=== PATIENT | female | born 1940 | race Caucasian/White ===

== ENCOUNTER 2021-03-22 12:08 | Inpatient (IN) | payer MEDICARE ==
[~2021-03-22] VITALS: Ht 165 cm; Wt 88.9 kg
[2021-03-22] MEDS ORDERED: morphine INJ 10 MG/ML 1ML (SYR OR VIAL) IVP PRN (12:45)
[2021-03-22] MEDS ORDERED: dilTIAZem DRIP PRE-MIX 125 ML IV ONE (15:23)
[2021-03-22] MEDS: PANTOPRAZOLE 40 MG (PROTONIX) VIAL IV SCH (15:45)
[2021-03-22] MEDS: NS IV 1000 ML 1,000 ML IV SCH ×2 (15:45→22:45)
[2021-03-22] MEDS: dilTIAZem DRIP PRE-MIX 125 ML IV SCH (15:45)
[2021-03-22] MEDS ORDERED: AMLO-250 PO (15:48)
[2021-03-22] MEDS ORDERED: LEVO100T7 PO (15:48)
[2021-03-22] MEDS ORDERED: ALEN70TA80 PO (15:48)
--- NOTE | 2021-03-22 16:07 | Pulmonary Consultation ---
DELMIS FERNANDEZ MED STUDENT 03/22/21 1607: History of Present Illness History of Present Illness Date Seen by Provider: Mar 22, 2021 Time Seen by Provider: 02:55 Date of Admission Alistair Hein is a 80 y.o. F with history of hypertension and hypothyroidism admitted to the ICU after she was found to be in atrial fibrillation with RVR while at a routine checkup today. The patient was seen in [facility] and was found to be anemic as well with hgb in the 6's. She was transfused 1 unit PRBC en route. The patient denies all symptoms including headache, lightheadedness, recent trauma, chest pain, palpitations, SOB, nausea, diarrhea, abdominal pain, black stools, and bloody stools. 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 No recent change in severity of exertional dyspnea. Her last colonoscopy was 30 years ago. Allergies and Home Medications Allergies Coded Allergies: No Allergy Information Available (Unverified , 03/22/21) Home Medications Alendronate Sodium 70 Mg Tablet, 70 MG PO SATURDAY, (Reported) Amlodipine Besylate 5 Mg Tablet, 5 MG PO DAILY, (Reported) Levothyroxine Sodium 100 Mcg Tablet, 100 MCG PO DAILY, (Reported) Past Medical/Social/Family Hx Patient Social History Marrital Status: single (lives alone) Tobacco Use?: No Smoking Status: Never a Smoker Substance use?: No Alcohol Use?: No (quit "years ago") Pt stated abuse/neglect: No Immunizations Up To Date Influenza Vaccine Up-to-Date: No; Not Current First/Initial COVID19 Vaccinat: AUGUST 2020 Second COVID19 Vaccination Sanya: SEPTEMBER 2020 Current Status Advance Directives: No Communicates: Verbally Primary Language: North Korean Preferred Spoken Language: [place] Korean Is interpretation needed?: No Past Medical History HTN, hypothyroidism Family Medical History Family Hx: father had symptomatic bradycardia, mother had a "heart problem" in her 50's. Review of Systems Constitutional: No: Fever, Chills, Sweats, Weakness, Malaise, Other Eyes: No: Vision change ENT: No: Nose congestion, Throat pain Respiratory: SOB with excertion (3 year hx. unchanged past year); No: Shortness of breath Cardiovascular: No: Chest Pain, Palpitations Gastrointestinal: No: Nausea, Vomiting, Abdominal Pain, Diarrhea, Constipation, Melena Genitourinary: No Dysuria Skin: No: Rash, Bruising Neurological: No: Weakness, Numbness, Change in speech Sepsis Event Evaluation Height, Weight, BMI Height: '" Weight: lbs. oz. kg; 32.32 BMI Method: Exam Exam Patient acknowledged, consented, and participated in this virtual visit which was conducted using real time audio/video Height & Weight Height: '" Weight: lbs. oz. kg; 32.32 BMI Method: General Appearance: No Apparent Distress, WD/WN, Obese HEENT: PERRL/EOMI, Moist Mucous Membranes Neck: Full Range of Motion, Normal Inspection Respiratory: Chest Non Tender, Lungs Clear, Normal Breath Sounds, No Accessory Muscle Use, No Respiratory Distress Cardiovascular: No JVD, Normal Peripheral Pulses, Irregularly Irregular, Tachycardia Gastrointestinal: non tender, soft Extremity: Normal Capillary Refill, Normal Inspection, No Calf Tenderness Neurologic/Psychiatric: Alert, Oriented x3, No Motor/Sensory Deficits, Normal Mood/Affect Skin: Normal Color, Warm/Dry Results Lab Laboratory Tests 03/22/21 14:00 Assessment/Plan Assessment/Plan atrial fibrillaton with RVR -rate 115's-120's -BP normotensive 125/97. Patient asymptomatic -cardiology to manage. anemia -received PRBC transfusion -recheck HGB -admitting hospitalist has consulted surgery. No acute hx. Last colonoscopy 30 years prior. history of hypertension hypothyroidism -continue synthroid DVT prophylaxis -hold anticoagulation due to anemia. place SCDs. OSIRIS GODFREY MD 03/22/21 1706: Allergies and Home Medications Allergies Coded Allergies: No Allergy Information Available (Unverified , 03/22/21) Home Medications Alendronate Sodium 70 Mg Tablet, 70 MG PO SATURDAY, (Reported) Amlodipine Besylate 5 Mg Tablet, 5 MG PO DAILY, (Reported) Levothyroxine Sodium 100 Mcg Tablet, 100 MCG PO DAILY, (Reported) Review of Systems Date Seen by Provider: Mar 22, 2021 Time Seen by Provider: 17:05 Exam Exam General Appearance: No Apparent Distress Respiratory: Lungs Clear Cardiovascular: Irregularly Irregular Gastrointestinal: normal bowel sounds, non tender Extremity: Pedal Edema (trace leg edema) Assessment/Plan Assessment/Plan BP ok, patient awake, got 2nd unit of PRBC, will check Hb at 7 pm, continue Cardizem @ 5, V rate about 90 Critical Care: Critically Ill Patient Time spent with patient (mins): 20 Supervisory-Addendum Brief Verification & Attestation Participated in pt care: history Personally performed: exam, history Care discussed with: DIVISION SERGEANT Procedures: n/a Results interpretation: Verified [place] [address] Progress Note - Med Stdnt PULM Patient Name: Sudha Gilliland I Unit Number: [id number] Date of : 07/30/1983 Patient Status: Admitted Inpatient Attending Doctor: Nigel Escoto MD YAZMIN VALADEZ MED STUDENT 03/22/21 0849: Subjective Subjective Date Seen by a Provider: Mar 22, 2021 Time Seen by a Provider: 07:05 Subjective/Events-last exam Patient reports nausea and pain all over. She received a dose of benadryl overnight. Vitals are stable per bedside monitor. On RA. Voice is still quiet/raspy, no stridor. She is able to speak in full sentences. Review of Systems General: No Chills, No Night Sweats HEENT: No Head Aches, No Visual Changes Pulmonary: No Dyspnea; Cough Cardiovascular: No: Chest Pain, Palpitations, Orthopnea, Edema Gastrointestinal: Nausea; No: Vomiting, Diarrhea, Constipation Genitourinary: No Dysuria, No Frequency, No Incontinence Musculoskeletal: neck pain, back pain, leg pain, foot pain Neurological: No: Weakness, Numbness, Confusion Sepsis Event - Inpatient/Obs Sepsis Event Evaluation Height, Weight, BMI Height: 5'5.00" Weight: 209lbs. 0.0oz. 94.878589nz; 36.73 BMI Method:Stated Focused Exam Focused Exam Lactate Level 03/21/21 04:17: Lactic Acid Level 6.15*H 03/21/21 07:24: Lactic Acid Level 1.81 03/22/21 04:27: Lactic Acid Level 1.24 Time of Focused Exam: 06:30 Exam-Pulmonary/CC Exam Exam Patient acknowledged, consented, and participated in this virtual visit which was conducted using real time audio/video Vital Signs Date Time Temp Pulse Resp B/P (MAP) Pulse Ox O2 Delivery O2 Flow Rate FiO2 03/22/21 06:00 80 99 Room Air 03/22/21 05:00 92 94 Room Air 03/22/21 04:39 36.4 Room Air 03/22/21 04:25 84 132/92 100 Room Air 03/22/21 04:03 Room Air 03/22/21 04:00 101 21 98 Room Air 03/22/21 03:00 87 10 97 Room Air 03/22/21 02:40 36.2 Room Air 03/22/21 02:00 89 15 95 Room Air 03/22/21 01:00 94 16 115/83 96 Room Air 03/22/21 01:00 94 03/22/21 00:15 36.9 03/22/21 00:13 Room Air 03/22/21 00:00 99 18 144/116 99 Room Air 03/21/21 23:00 90 130/97 96 Room Air 03/21/21 22:00 98 9 142/103 90 Room Air 03/21/21 21:13 116 16 145/116 100 Room Air 03/21/21 20:27 Room Air 03/21/21 20:05 105 29 123/61 99 Room Air 03/21/21 19:00 37.1 Room Air 03/21/21 19:00 103 98 Room Air 03/21/21 19:00 103 03/21/21 18:00 110 21 98 Room Air 03/21/21 17:03 37.2 03/21/21 16:00 Room Air 03/21/21 15:00 112 39 140/95 97 Room Air 03/21/21 14:00 112 22 94 Room Air 03/21/21 13:00 126 03/21/21 13:00 129 21 95 Room Air 03/21/21 12:00 Room Air 03/21/21 12:00 114 9 128/86 95 Room Air 03/21/21 11:00 133 21 117/76 98 Room Air 03/21/21 10:00 123 21 117/76 98 Room Air 03/21/21 09:00 122 21 122/105 100 Room Air 03/21/21 08:58 130 I & O 03/22/21 06:59 Intake Total 4495 ml Balance 4495 ml Height & Weight Height: 5'5.00" Weight: 209lbs. 0.0oz. 94.653133it; 36.73 BMI Method:Stated General Appearance: No Apparent Distress, WD/WN, Obese HEENT: PERRL/EOMI, Moist Mucous Membranes, Other (No pharyngeal exudates, minimal swelling of uvula. Tongue with thick yellow film. Poor oral hygiene. ) Neck: Supple, Other (No LAD. Tender to palpation throughout. RIJ CVC in place.) Respiratory: Chest Non Tender, Lungs Clear, Normal Breath Sounds, No Accessory Muscle Use, No Respiratory Distress Cardiovascular: Regular Rate, Rhythm (with a rate of 103 this morning), No Jose ma, Normal Peripheral Pulses Capillary Refill: Less Than 3 Seconds Peripheral Pulses: 2+ Dorsalis Pedis (R), 2+ Left Dors-Pedis (L), 2+ Radial Pulses (R), 2+ Radial Pulses (L) Gastrointestinal: normal bowel sounds, non tender, soft; No distended, No guarding, No rebound; tenderness (tender to palpation x 4 quadrants. ) Extremity: Normal Capillary Refill, No Calf Tenderness, No Pedal Edema Neurologic/Psychiatric: Alert, Oriented x3 Skin: Normal Color, Warm/Dry Lymphatic: No Adenopathy Results Lab Laboratory Tests 03/21/21 04:17 03/21/21 14:30 03/22/21 04:27 Assessment/Plan Assessment/Plan Assessment/Plan Severe sepsis -rocephin -unasyn -wbc down to 14.6 today -procal 0.08 today -s/p fluid resuscitation -not on pressors Pharyngitiswith soft tissue pharyngeal swelling by CT -strep, covid, mono negative -culture pending -unasyn started today -ENT consulted today -benadryl for hoarseness -tylenol and fentanyl for pain -s/p 3 doses decadron Urine drug screen positive for ETOH -level 36 -CIWA protocol, monitor for withdrawal Elevated LFT's -trending down -continue to monitor -hepatic steatosis per CT abd/pelvis Anemia -hgb 10.5, likely dilutional -continue to follow Seizure disorder -keppra Closed head injury -continue to monitor neuro status Elevated LFTs -continue to monitor H/O pancreatitis -lipase 15 on - H/O diverticulosis DVT ppx -lovenox GI ppx -protonix Gonorrhea and chlamydia pending. Hepatitis and HIV assays non reactive. Syphilis antibody reactive. RPR non reactive. RIJ CVC: 03/21 Lees: None Problem List Diagnosis/Problems Copy To: Copy Verification and Attestation Supervisory-Addendum Brief OSIRIS GODFREY MD 03/22/21 1657: Subjective Subjective Sepsis Event - Inpatient/Obs Sepsis Event Focused Exam Focused Exam Exam-Pulmonary/CC Exam Assessment/Plan Assessment/Plan Assessment/Plan not drooling, appears to be improving, will continue abx Critical Care: Critically Ill Patient Problem List Diagnosis/Problems Copy To: Copy Verification and Attestation Supervisory-Addendum Brief Verification & Attestation Participated in pt care: history Personally performed: history Care discussed with: Medical Student Procedures: n/a Results interpretation: Verified all documentation [address] [address] Critical Care Consultation/H&P Patient Name: Coty Lizama Unit Number: [id number] Date of : 1940 Patient Status: Admitted Inpatient Attending Doctor: Arianna Tubbs MD History of Present Illness History of Present Illness History of Present Illness Date Seen by Provider: Mar 22, 2021 Time Seen by Provider: 16:47 Date of Admission 80 F with palpatations was in a fib with V rate 160, given 20 mg IV Cardizem, brought rate to 80's,on maintenance rate of 10 pt awake with no SOB, CP Hx of CABG about 1999, multiple stents no DM, Has HLD, PVD, CAD AAA repair ALFREDO not on CPAP at home Allergies & Home Medications-C Allergies and Home Medications Allergies Coded Allergies: NKANo Known Allergies (Verified Allergy, Unknown, 10/22/06) Home Medications Amlodipine Besylate 5 Mg Tablet, 5 MG PO 1400, (Reported) LAST FILLED 09-15-2020 #90/90 DAY SUPPLY Apixaban 5 Mg Tablet, 5 MG PO BID, (Reported) Aspirin 81 Mg Tablet.dr, 81 MG PO DAILY, (Reported) Atorvastatin Calcium 20 Mg Tablet, 20 MG PO 1400, (Reported) Cholecalciferol (Vitamin D3) 25 Mcg Capsule, 25 MCG PO DAILY, (Reported) Lisinopril 20 Mg Tablet, 20 MG PO 1400, (Reported) Metoprolol Succinate 50 Mg Tab.er.24h, 50 MG PO 1400, (Reported) Minoxidil 10 Mg Tab, 10 MG PO BID, (Reported) [place]-3S/Dha/Epa/Fish Oil 1 Each Capsule, 1 EACH PO 1400, (Reported) Past Medical/Social/Family Hx Past Medical/Social/Family Hx Patient Social History Tobacco Use?: No Smoking Status: Former Smoker Smokeless Tobacco Frequency: Never a User Use of E-Cig and/or Vaping dev: No Substance use?: No Alcohol Use?: No Pt stated abuse/neglect: No Immunizations Up To Date Influenza Vaccine Up-to-Date: No; Not Current First/Initial COVID19 Vaccinat: UNVACCINATED Tetanus Booster (TDap): Unknown Hepatitis A: No Hepatitis B: No TB Skin Test: Negative Date of Pneumonia Vaccine: Jul 25, 2006 Current Status status: No status: No Advance Directives: No Communicates: Verbally Primary Language: [place] Preferred Spoken Language: [place] Is interpretation needed?: No Additional sensory deficits: N/A Implanted or Applied Medical D: Orthopedic hardware, Stents Review of Systems-Hospitalist Review of Systems Constitutional: see HPI EENTM: see HPI Respiratory: see HPI Cardiovascular: see HPI Gastrointestinal: see HPI Genitourinary: see HPI Musculoskeletal: see HPI Skin: see HPI Psychiatric/Neurological: See HPI Sepsis Event - Inpatient/Obs Sepsis Event Evaluation Height, Weight, BMI Height: 5'0.00" Weight: 140lbs. 0.0oz. 63.355329vz; 25.35 BMI Method:Stated Exam-Pulmonary/CC Exam Exam Patient acknowledged, consented, and participated in this virtual visit which was conducted using real time audio/video Vital Signs Date Time Temp Pulse Resp B/P (MAP) Pulse Ox O2 Delivery O2 Flow Rate FiO2 03/22/21 15:42 98 Room Air 03/22/21 15:30 104 12 110/89 96 Room Air 03/22/21 15:15 123 31 146/105 95 Room Air 03/22/21 15:10 147 03/22/21 15:00 36.6 139/118 Room Air 03/22/21 14:45 119 18 149/106 97 Room Air 03/22/21 12:17 168 20 161/113 (129) 95 Room Air Height & Weight Height: 5'0.00" Weight: 140lbs. 0.0oz. 63.937360yy; 25.35 BMI Method:Stated General Appearance: No Apparent Distress, WD/WN, Other (WALKS IN ON HER OWN WITHOUT DIFFICULTY; SMILING, PLEASANT, TALKATIVE. 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 Physical findings are those described to me by RN and medical student Time spent with patient (mins): 25 Problem List Diagnosis/Problems Copy To: Copy OSIRIS GODFREY MD Mar 22, 2021 16:52 YAZMIN VALADEZ MED STUDENT Mar 22, 2021 08:49 OSIRIS GODFREY MD Mar 22, 2021 16:57 DELMIS FERNANDEZ MED STUDENT Mar 22, 2021 16:07 OSIRIS GODFREY MD Mar 22, 2021 17:06
--- NOTE | 2021-03-22 16:35 | Consultation - Surgery ---
SABI FREITAS 03/22/21 1634: History of Present Illness History of Present Illness Patient Consulted On(shyanne/time) 03/22/21 16:32 Date Seen by Provider: Mar 22, 2021 Time Seen by Provider: 04:00 History of Present Illness Consulted by Dr. Pierre for acute blood loss and possible GI bleed. 80yo F with history of HTN and hypothyroid admitted to ICU after afib with RVR at a routine check up. Pt was then transferred to [place] ER where they found her to be anemic with Hgb at 6.5. Was transfused 1 unit PRBCs via EMS on route to [facility] and one unit here. Denies any recent falls. Denies any fever, chills, nausea, vomiting, diarrhea, SOB, or chest pain. Denies any blood in stools or hemoptyosis. On clear liquid diet. Last colonoscopy 30 years ago. Allergies and Home Medications Allergies Coded Allergies: No Allergy Information Available (Unverified , 03/22/21) Patient Home Medication List Alendronate Sodium (Alendronate Sodium) 70 Mg Tablet, 70 MG PO SATURDAY, (Reported) Entered as Reported by: NADIRA SALMERON on 03/22/211547 Last Action: Reviewed Amlodipine Besylate (Amlodipine Besylate) 5 Mg Tablet, 5 MG PO DAILY, (Reported) Entered as Reported by: NADIRA SALMERON on 03/22/211547 Last Action: Reviewed Levothyroxine Sodium (Levothyroxine Sodium) 100 Mcg Tablet, 100 MCG PO DAILY, (Reported) Entered as Reported by: NADIRA SALMERON on 03/22/211547 Last Action: Reviewed Past Rueoibb-Bgvovs-Lstqkb Hx Patient Social History Smoking Status: Never a Smoker Alcohol Use?: No (quit "years ago") Have you traveled recently?: No Review of Systems-General Constitutional: No chills, No fever, No malaise EENTM: No blurred vision, No throat pain Respiratory: No cough, No hemoptysis, No short of breath, No wheezing Cardiovascular: No chest pain, No edema, No palpitations Gastrointestinal: No abdominal pain, No diarrhea, No nausea, No vomiting Genitourinary: No dysuria, No frequency, No incontinence Musculoskeletal: No back pain, No muscle pain, No neck pain Skin: No change in color, No lesions, No rash Psychiatric/Neurological: Denies Headache, Denies Numbness, Denies Tingling Physical Exam-General Problems Physical Exam Vital Signs Vital Signs - First Documented 03/22/21 16:11 Temp 36.6 Capillary Refill : General Appearance: WD/WN, no apparent distress HEENT: PERRL/EOMI Neck: non-tender, supple, normal inspection Respiratory: chest non-tender, no respiratory distress, no accessory muscle use Cardiovascular: tachycardia Gastrointestinal: non tender, soft Extremities: non-tender, no pedal edema, no calf tenderness, normal capillary refill Neurologic/Psychiatric: alert, normal mood/affect, oriented x 3 Skin: warm/dry Data Review Labs Laboratory Tests 03/22/21 14:00: White Blood Count 12.7H, Red Blood Count 3.67L, Hemoglobin 6.9*L, Hematocrit 27L , Mean Corpuscular Volume 73L, Mean Corpuscular Hemoglobin 19L, Mean Corpuscular Hemoglobin Concent 26L, Red Cell Distribution Width 18.9H, Platelet Count 469H, Mean Platelet Volume 11.0, Immature Granulocyte % (Auto) 1, Neutrophils (%) (Auto) 80H, Lymphocytes (%) (Auto) 11L, Monocytes (%) (Auto) 7, Eosinophils (%) (Auto) 1, Basophils (%) (Auto) 0, Neutrophils # (Auto) 10.2H, Lymphocytes # (Auto) 1.4, Monocytes # (Auto) 0.9, Eosinophils # (Auto) 0.2, Basophils # (Auto) 0.0, Immature Granulocyte # (Auto) 0.1, Neutrophils % (Manual) 86, Lymphocytes % (Manual) 7, Monocytes % (Manual) 5, Eosinophils % (Manual) 2, Percent Immature Platelet Fraction 5.4, Hypochromasia MARKED, Target Cells SLIGHT, [place] Cells SLIGHT, Elliptocytes SLIGHT, Blood Morphology Comment NA, Absolute Reticulocyte Count 65, Percent Reticulocyte Count 1.76 Assessment/Plan Assessment/Plan Assessment/Plan Atrial fibrillation with RVR Anemia h/o HTN h/o Hypothroid Anticoagulation held due to anemic Continue to monitor Hgb and transfuse as necessary Management by Cardiology, need cardiac clearance before doing any colonoscopy to check for possible GI bleed/Cancer JOSH LORD DO 03/22/21 4109: History of Present Illness History of Present Illness History of Present Illness Patient is a 72-year-old female who was found to have A. fib with RVR at her checkup. She is also found to have a hemoglobin of 6.5. Patient was transfused 1 unit of packed red blood cells already. Patient states that she has not noticed any blood in her stools or dark or tarry stools. Patient denies any abdominal pain. Patient states she is actually been doing well. Not had any weakness or dizziness spells. Patient states that on occasion she does get a little short of breath without this kind of normal for her. Patient states that her last colonoscopy was approximately 30 years ago. Patient with no other complaints at this time. She denies any nausea vomiting fever sweats chills shortness of breath or chest pain. Allergies and Home Medications Allergies Coded Allergies: No Allergy Information Available (Unverified , 03/22/21) Patient Home Medication List Home Medication List Reviewed: Yes Alendronate Sodium (Alendronate Sodium) 70 Mg Tablet, 70 MG PO SATURDAY, (Reported) Entered as Reported by: NADIRA SALMERON on 03/22/211547 Last Action: Reviewed Amlodipine Besylate (Amlodipine Besylate) 5 Mg Tablet, 5 MG PO DAILY, (Reported) Entered as Reported by: NADIRA SALMERON on 03/22/211547 Last Action: Reviewed Levothyroxine Sodium (Levothyroxine Sodium) 100 Mcg Tablet, 100 MCG PO DAILY, (Reported) Entered as Reported by: NADIRA SALMERON on 03/22/211547 Last Action: Reviewed Past Dubvuyw-Juifmr-Bdnyjp Hx Reviewed Nursing Assessment Reviewed/Agree w Nursing PMH: Yes Family Medical History Significant Family History: No Pertinent Family Hx Review of Systems-General Constitutional: No chills, No fever, No malaise EENTM: No blurred vision, No double vision Respiratory: No cough, No hemoptysis, No short of breath Gastrointestinal: No abdominal pain, No diarrhea, No nausea, No vomiting Genitourinary: No dysuria, No frequency Musculoskeletal: No back pain, No muscle pain, No neck pain Skin: No change in color, No lesions, No rash Psychiatric/Neurological: Denies Anxiety, Denies Depressed, Denies Emotional Problems, Denies Headache, Denies Numbness, Denies Tingling All Other Systems Reviewed Negative Unless Noted: Yes (Negative excepted noted.) Physical Exam-General Problems Physical Exam General Appearance: WD/WN, no apparent distress HEENT: PERRL/EOMI Neck: non-tender, supple Respiratory: chest non-tender, no respiratory distress, no accessory muscle use Cardiovascular: tachycardia, irregularly irregular Gastrointestinal: non tender, soft Rectal: deferred Back: normal inspection, no CVA tenderness Extremities: non-tender, no pedal edema, no calf tenderness Neurologic/Psychiatric: alert, normal mood/affect, oriented x 3 Skin: warm/dry, pallor Lymphatic: no adenopathy Assessment/Plan Assessment/Plan Assessment/Plan Atrial fibrillation with RVR Anemia h/o HTN h/o Hypothroid Continue to monitor Hgb and transfuse as necessary Hold anticoagulation due to anemia. Patient discussed need for EGD and colonoscopy also discussed with Dr. Peirre. She is in agreement with plan. Patient to be prepped tomorrow and have EGD and colonoscopy performed on Saturday. Patient understands all risk and benefits. Along with family. Supervisory-Addendum Brief Verification & Attestation Participated in pt care: history, MDM, physical Personally performed: exam, history, MDM, supervision of care Care discussed with: Medical Student Procedures: n/a Results interpretation: Verified all documentation Verification and Attestation of Medical Student E/M Service A medical student performed and documented this service in my presence. I reviewed and verified all information documented by the medical student and made modifications to such information, when appropriate. I personally performed the physical exam and medical decision making. Josh Lord, Mar 22, 2021,22:29 SABI FREITAS Mar 22, 2021 16:34 JOSH LORD DO Mar 22, 2021 22:29
--- NOTE | 2021-03-22 16:35 | History & Physical-Hospitalist ---
ROMMEL TORRES 03/22/21 1635: History of Present Illness HPI/Chief Complaint CC: Atrial Fibrillation with RVR HPI: 80 yo F presents to the ICU from [place] via EMS due to asymptomatic Atrial Fibrillation with RVR and anemia. She does report that she follows with a environmental coordinator in [place] due to 3 years of exertional dyspnea, but reportedly had a stress test when this started and said she was unsure of the results of that. No recent change in severity of exertional dyspnea. She denies any symptoms related to her anemia or atrial fibrillation which includes no black or tarry stools, CP, or SOB, recent falls. Her hemoglobin on 03/22 is 6.9 and hematocrit of 27. Source: patient Exam Limitations: no limitations Date Seen 03/22/21 Time Seen by a Provider: 16:15 Attending Physician Ivy Pierre DO PCP Referring Physician Date of Admission Mar 22, 2021 at 14:57 Home Medications & Allergies Home Medications Reviewed patient Home Medication Reconciliation performed by pharmacy medication reconciliations pbx technician and/or nursing. Patients Allergies have been reviewed. Allergies Allergies Coded Allergies No Allergy Information Available (Unverified03/22/21) NKDA, no allergies to food and environment Past Qedikml-Ziejeg-Monhje Hx Patient Social History Marrital Status: single (lives alone) Number of Children: 3 Living Status: healthy Employed/Student: retired Tobacco Use?: No Smoking Status: Never a Smoker Substance use?: No Alcohol Use?: No (quit "years ago") Pt feels they are or have been: No Immunizations Up To Date First/Initial COVID19 Vaccinat: AUGUST 2020 Second COVID19 Vaccination Sanya: SEPTEMBER 2020 Current Status Advance Directives: No Communicates: Verbally Primary Language: Burkinan Preferred Spoken Language: Burkinan Is interpretation needed?: No Past Medical History Surgeries: Gallbladder HTN, hypothyroidism, colonscopy performed 30 years ago Family Medical History Mom- , congenital kidney problem, 2 to 3 strokes in her 50's father- , symptomatic bradycardia 3 children all healthy sister - at 43yo due to unknown origin of cancer one brother - of lung problems 3 years ago second brother- healthy Review of Systems Constitutional: No dizziness Respiratory: No hemoptysis, No short of breath, No stridor, No wheezing Cardiovascular: No chest pain, No palpitations Gastrointestinal: no symptoms reported; No melena, No nausea, No vomiting Physical Exam Physical Exam Vital Signs Vital Signs - First Documented 03/22/21 16:11 Temp 36.6 Capillary Refill : Height, Weight, BMI Height: '" Weight: lbs. oz. kg; 32.32 BMI Method: General Appearance: No Apparent Distress Cardiovascular: Irregularly Irregular, Tachycardia Results Results/Procedures Labs Laboratory Tests 03/22/21 14:00 Patient resulted labs reviewed. Assessment/Plan Assessment and Plan Assessment: A fib with RVR Anemia GI bleed possible Colon cancer Plan: Consult cardiology and General Surgery CMP, CBC with diff, EKG ordered Pure liquid diet IVY PIERRE 03/23/21 0521: History of Present Illness HPI/Chief Complaint CC: New onset AFIB with RVR with severe anemia symptomatic at 6.4 Hgb HPI: This is a 80yoWF who presented to the ER with palpitations and weakness found to have new onset AFIB with RVR with Hgb of 6.4. She did have some mild hypotension precluding a Cardizem drip bolus but she is on a Cardizem drip. I did notify Dr. Chung and placed all ICU orders. Will monitor Pt closely at this current time in the ICU. Source: patient Exam Limitations: no limitations Past Trhekrd-Vfdtef-Flkxqo Hx Patient Social History Marrital Status: Employed/Student: retired Smoking Status: Never a Smoker Review of Systems Constitutional: see HPI, dizziness, malaise, weakness EENTM: no symptoms reported Respiratory: no symptoms reported Cardiovascular: palpitations Gastrointestinal: loss of appetite Genitourinary: no symptoms reported Musculoskeletal: no symptoms reported Skin: no symptoms reported Psychiatric/Neurological: No Symptoms Reported All Other Systems Reviewed Negative Unless Noted: Yes Physical Exam Physical Exam General Appearance: No Apparent Distress, WD/WN, Anxious, Chronically ill, Obese, Other (Pale) Eyes: Right Eye Normal Inspection, Right Eye PERRL HEENT: PERRL/EOMI, Normal ENT Inspection, Pharynx Normal, Moist Mucous Membranes Neck: Full Range of Motion, Normal Inspection, Non Tender Respiratory: Chest Non Tender, Lungs Clear, Normal Breath Sounds, No Accessory Muscle Use, No Respiratory Distress Cardiovascular: Regular Rate, Rhythm, No Edema, No Gallop, No JVD, No Murmur, Normal Peripheral Pulses Gastrointestinal: Normal Bowel Sounds, No Organomegaly, No Pulsatile Mass, Non Tender, Soft Back: Normal Inspection, No CVA Tenderness, No Vertebral Tenderness Extremity: Normal Capillary Refill, Normal Inspection, Normal Range of Motion, Non Tender, No Calf Tenderness, No Pedal Edema Neurologic/Psychiatric: Alert, Oriented x3, No Motor/Sensory Deficits, Normal Mood/Affect Skin: Normal Color, Warm/Dry Lymphatic: No Adenopathy Assessment/Plan Admission Diagnosis Assessment: New onset atrial fibrillation with rapid ventricular response Symptomatic anemia hemoglobin 6.4 suspect GI bleed Weakness Plan: ICU General surgery consult likely will need scope Cardizem drip Cardiology consult Admission Status: Inpatient Order (span 2 midnights) Reason for Inpatient Admission: A. fib with RVR and severe anemia Diagnosis/Problems Diagnosis/Problems (1) Atrial fibrillation with RVR (2) Anemia Supervisory-Addendum Brief Verification & Attestation Participated in pt care: history, MDM, physical Personally performed: exam, history, MDM, supervision of care Care discussed with: Medical Student Procedures: n/a Results interpretation: Verified all documentation Verification and Attestation of Medical Student E/M Service A medical student performed and documented this service in my presence. I reviewed and verified all information documented by the medical student and made modifications to such information, when appropriate. I personally performed the physical exam and medical decision making. Ivy Pierre, Mar 23, 2021,05:21 ROMMEL TORRES Mar 22, 2021 16:35 IVY PIERRE DO Mar 23, 2021 05:21
--- NOTE | 2021-03-22 16:56 | Consultation-Cardiology ---
HPI-Cardiology Cardiology Consultation: Date of Consultation 03/22/2021 Date of Admission 03/22/2021 Attending Physician Ivy Pierre DO Admitting Physician Ivy Pierre DO Consulting Physician PRAVEEN ALONZO JR, MD HPI: Time Seen by a Provider: 16:52 Chief Complaint: Reason for consultation: Atrial fibrillation. I had the pleasure of seeing Alistair in the intensive care unit at [facility] in [place], [place] today. Review of Systems-Cardiology Review of Systems Other comments Review of 10 organ systems is as per the history of present illness, otherwise negative. ARH-Sqxyvw-Lrgizp Hx Patient Social History Marrital Status: single (lives alone) Number of Children: 3 Living Status: healthy Employed/Student: retired Smoking Status: Never a Smoker Have you traveled recently?: No Alcohol Use?: No (quit "years ago") Pt feels they are or have been: No Past Medical History PMH As described under Assessment. Allergies and Home Medications Allergies Coded Allergies: No Allergy Information Available (Unverified , 03/22/21) Patient Home Medication List Home Medication List Reviewed: Yes Alendronate Sodium (Alendronate Sodium) 70 Mg Tablet, 70 MG PO SATURDAY, (Reported) Entered as Reported by: NADIRA SALMERON on 03/22/211547 Last Action: Reviewed Amlodipine Besylate (Amlodipine Besylate) 5 Mg Tablet, 5 MG PO DAILY, (Reported) Entered as Reported by: NADIRA SALMERON on 03/22/211547 Last Action: Reviewed Levothyroxine Sodium (Levothyroxine Sodium) 100 Mcg Tablet, 100 MCG PO DAILY, (Reported) Entered as Reported by: NADIRA SALMERON on 03/22/211547 Last Action: Reviewed Exam Vital Signs Vital Signs Date Time Temp Pulse Resp B/P (MAP) Pulse Ox O2 Delivery O2 Flow Rate FiO2 03/22/21 16:11 36.6 03/22/21 15:11 114 Physical Exam General: Alert. No acute distress. Well nourished and appears stated age. She is obese. Eye: Extraocular movements are intact. Conjunctivae are clear. There are no xanthelasma. HENT: Normocephalic. Atraumatic. Carotid pulsations 2/2 without bruits. Neck: Jugular venous pressure does not appear elevated. No thyromegaly appreciated. Respiratory: Lungs are clear to auscultation. Respirations are non-labored. Breath sounds are equal. Symmetrical chest wall expansion. Cardiovascular: Tachycardia with irregular rhythm. No murmur. No gallop. Point of maximal impulse is not appear displaced. Good pulses equal in all extremities. Trace bilateral pretibial edema. Gastrointestinal: Soft. Normal bowel sounds. Skin: Skin turgor is normal. There is no pallor. Musculoskeletal: No kyphosis or scoliosis appreciated. Neurologic: Alert and oriented to person, place, time. Cranial nerves 3-12 appear grossly intact. The patient has good motor tone strength in the upper and lower extremities bilaterally. Psychiatric: Cooperative. Appropriate mood & affect. Labs Laboratory Tests Test 03/22/21 14:00 03/22/21 17:00 Range/Units White Blood Count 12.7 H 4.3-11.0 10^3/uL Red Blood Count 3.67 L 3.80-5.11 10^6/uL Hemoglobin 6.9 *L 11.5-16.0 g/dL Hematocrit 27 L 35-52 % Mean Corpuscular Volume 73 L 80-99 fL Mean Corpuscular Hemoglobin 19 L 25-34 pg Mean Corpuscular Hemoglobin Concent 26 L 32-36 g/dL Red Cell Distribution Width 18.9 H 10.0-14.5 % Platelet Count 469 H 130-400 10^3/uL Mean Platelet Volume 11.0 9.0-12.2 fL Immature Granulocyte % (Auto) 1 % Neutrophils (%) (Auto) 80 H 42-75 % Lymphocytes (%) (Auto) 11 L 12-44 % Monocytes (%) (Auto) 7 0-12 % Eosinophils (%) (Auto) 1 0-10 % Basophils (%) (Auto) 0 0-10 % Neutrophils # (Auto) 10.2 H 1.8-7.8 10^3/uL Lymphocytes # (Auto) 1.4 1.0-4.0 10^3/uL Monocytes # (Auto) 0.9 0.0-1.0 10^3/uL Eosinophils # (Auto) 0.2 0.0-0.3 10^3/uL Basophils # (Auto) 0.0 0.0-0.1 10^3/uL Immature Granulocyte # (Auto) 0.1 0.0-0.1 10^3/uL Neutrophils % (Manual) 86 % Lymphocytes % (Manual) 7 % Monocytes % (Manual) 5 % Eosinophils % (Manual) 2 % Percent Immature Platelet Fraction 5.4 0.0-7.6 % Hypochromasia MARKED Target Cells SLIGHT Mecca Cells SLIGHT Elliptocytes SLIGHT Blood Morphology Comment NA Absolute Reticulocyte Count 65 24-90 10e9/uL Percent Reticulocyte Count 1.76 0.50-2.40 % Sodium Level 142 135-145 MMOL/L Potassium Level 3.2 L 3.6-5.0 MMOL/L Chloride Level 109 H 98-107 MMOL/L Carbon Dioxide Level 22 21-32 MMOL/L Anion Gap 11 5-14 MMOL/L Blood Urea Nitrogen 9 7-18 MG/DL Creatinine 0.78 0.60-1.30 MG/DL Estimat Glomerular Filtration Rate 71 BUN/Creatinine Ratio 12 Glucose Level 83 70-105 MG/DL Calcium Level 8.6 8.5-10.1 MG/DL Corrected Calcium 9.1 8.5-10.1 MG/DL Total Bilirubin 1.3 H 0.1-1.0 MG/DL Aspartate Amino Transf (AST/SGOT) 17 5-34 U/L Alanine Aminotransferase (ALT/SGPT) 12 0-55 U/L Alkaline Phosphatase 52 40-136 U/L Total Protein 5.8 L 6.4-8.2 GM/DL Albumin 3.4 3.2-4.5 GM/DL Radiology Echocardiogram from the outside hospital showed normal left ventricular chamber size with mild concentric left ventricular hypertrophy. There were no significant regional wall motion abnormalities identified in the parasternal views. The overall left ventricular systolic function was preserved with an estimated ejection fraction of 55-60%. The left ventricular diastolic function was indeterminate. The left atrium is mildly dilated. There was mild aortic valve sclerosis. There was mild aortic regurgitation. The estimated pulmonary artery systolic pressure was 36 mmHg. ECG Impression ECG Comment Electrocardiogram from the outside hospital shows atrial fibrillation with a rapid ventricular rate at [address]-T wave changes. Diagnosis/Problems Diagnosis/Problems (1) Unspecified atrial fibrillation Assessment & Plan: She has atrial fibrillation of unknown duration. She seems to be asymptomatic with this. Her left atrium is only mildly dilated on today's echocardiogram which suggests that the atrial fibrillation may be something recent. Unclear whether or not this may have been brought on by the severe anemia or this just happens to be a coincidence. I will start her on oral beta- rupal. We will need to hold off on starting anticoagulation until we determine the source of the anemia. If we place her on oral anticoagulation now and she is bleeding someplace, this would obviously make the bleeding worse. We can resume the intravenous diltiazem if needed for rate control. If we cannot get her heart rates under control, she may need a transesophageal echocardiogram and cardioversion. (2) Anemia Assessment & Plan: Etiology unclear. She has not had any blood in her stool or urine. General surgery is evaluating the patient for consideration of endoscopy. The hospitalist is giving her blood transfusions. (3) Pulmonary hypertension Assessment & Plan: By her report, she has pulmonary hypertension. She is followed with a aligning checker at [facility] in [place], [place] for management of this condition. Today's echocardiogram from the outside hospital only shows mild pulmonary hypertension. This can be followed by her regular aligning checker at the outside facility after discharge. (4) Primary hypertension Assessment & Plan: She was taking amlodipine at home. She has been running some soft blood pressures here and also at the outside hospital. She had initially been placed on intravenous diltiazem due to the rapid ventricular rate with the atrial fibrillation. However, this was discontinued at the outside hospital due to hypotension. I will start her on low-dose metoprolol succinate. I would not resume the amlodipine at this time. (5) Aortic regurgitation Assessment & Plan: Her echocardiogram from the outside hospital showed mild aortic regurgitation. This should not be contributing to the current situation but will need to be followed longitudinally after discharge. (6) Obesity Assessment & Plan: She needs to work on weight loss. There is stated that 20 pounds of weight loss will help reduce the risk of recurrent atrial fibrillation. PRAVEEN ALONZO JR, MD Mar 22, 2021 16:56
[2021-03-22 17:32] LABS: ALBUMIN 3.4 GM/DL (3.2-4.5); BILIRUBIN,TOTAL 1.3 MG/DL (0.1-1.0); CALCIUM 8.6 MG/DL (8.5-10.1); CREATININE SERUM 0.78 MG/DL (0.60-1.30); POTASSIUM 3.2 MMOL/L (3.6-5.0); TOTAL PROTEIN 5.8 GM/DL (6.4-8.2)
[2021-03-22 19:31] LABS: BASOPHILS # (AUTO) 0.1 10^3/uL (0.0-0.1); BASOPHILS % (AUTO) 1 % (0-10); EOSINOPHILS # (AUTO) 0.3 10^3/uL (0.0-0.3); EOSINOPHILS % (AUTO) 2 % (0-10); HEMATOCRIT 29 % (35-52); HEMOGLOBIN 8.3 g/dL (11.5-16.0); LYMPHOCYTES % (AUTO) 16 % (12-44); MEAN CORPUSCULAR HEMOGLOBIN 21 pg (25-34); MEAN CORPUSCULAR HGB CONC 28 g/dL (32-36); MEAN CORPUSCULAR VOLUME 73 fL (80-99); MEAN PLATELET VOLUME 10.7 fL (9.0-12.2); MONOCYTES # (AUTO) 0.9 10^3/uL (0.0-1.0); MONOCYTES % (AUTO) 7 % (0-12); NEUTROPHILS # (AUTO) 9.6 10^3/uL (1.8-7.8); NEUTROPHILS % (AUTO) 74 % (42-75); PLATELET COUNT 430 10^3/uL (130-400); WHITE BLOOD COUNT 12.9 10^3/uL (4.3-11.0)
[2021-03-23 05:10] LABS: BASOPHILS # (AUTO) 0.1 10^3/uL (0.0-0.1); BASOPHILS % (AUTO) 0 % (0-10); EOSINOPHILS # (AUTO) 0.2 10^3/uL (0.0-0.3); EOSINOPHILS % (AUTO) 2 % (0-10); HEMATOCRIT 27 % (35-52); HEMOGLOBIN 7.4 g/dL (11.5-16.0); LYMPHOCYTES # (AUTO) 1.3 10^3/uL (1.0-4.0); LYMPHOCYTES % (AUTO) 10 % (12-44); MEAN CORPUSCULAR HEMOGLOBIN 20 pg (25-34); MEAN CORPUSCULAR HGB CONC 28 g/dL (32-36); MEAN CORPUSCULAR VOLUME 73 fL (80-99); MEAN PLATELET VOLUME 10.6 fL (9.0-12.2); MONOCYTES # (AUTO) 0.9 10^3/uL (0.0-1.0); MONOCYTES % (AUTO) 7 % (0-12); NEUTROPHILS # (AUTO) 9.9 10^3/uL (1.8-7.8); NEUTROPHILS % (AUTO) 80 % (42-75); PLATELET COUNT 365 10^3/uL (130-400); WHITE BLOOD COUNT 12.4 10^3/uL (4.3-11.0)
[2021-03-23 05:37] LABS: ALBUMIN 3.3 GM/DL (3.2-4.5)
[2021-03-23 05:38] LABS: POTASSIUM 3.1 MMOL/L (3.6-5.0)
[2021-03-23 05:39] LABS: CALCIUM 8.2 MG/DL (8.5-10.1)
[2021-03-23 05:40] LABS: TOTAL PROTEIN 5.3 GM/DL (6.4-8.2)
[2021-03-23 05:42] LABS: BILIRUBIN,TOTAL 1.1 MG/DL (0.1-1.0)
[2021-03-23 05:43] LABS: PHOSPHORUS 2.9 MG/DL (2.3-4.7)
[2021-03-23 05:44] LABS: CREATININE SERUM 0.76 MG/DL (0.60-1.30)
[2021-03-23 05:46] LABS: MAGNESIUM 1.8 MG/DL (1.6-2.4)
[2021-03-23] MEDS: MAGNESIUM 1 GM/100 ML IVPB 100 ML IV SCH (06:09)
[2021-03-23] MEDS: KCL 20 MEQ TAB (K-DUR) PO SCH (06:09)
[2021-03-23] MEDS: POTASSIUM CL 10MEQ/50ML IVPB 50 ML IV SCH (06:10)
--- NOTE | 2021-03-23 07:08 | Progress Note - Surgery ---
SABI FREITAS 03/23/21 0708: Subjective Date Seen by a Provider: Mar 23, 2021 Time Seen by a Provider: 06:00 Subjective/Events-last exam Pt reports some cough and SOB. No other new complaints at this time. Reports business system consultant said that they will continue to monitor her. Denies any fever, chills, vomiting, diarrhea, or chest pain. Currently NPO and on clear liquid diet. Denies blood thinners. Will have EGD/colonoscopy tomorrow. Objective Exam Vital Signs Date Time Temp Pulse Resp B/P (MAP) Pulse Ox O2 Delivery O2 Flow Rate FiO2 03/23/21 06:00 97 20 137/78 95 OxyMask 5.00 03/23/21 05:00 92 26 126/80 91 OxyMask 5.00 03/23/21 04:01 OxyMask 5.00 03/23/21 04:00 36.6 OxyMask 5.00 03/23/21 04:00 90 20 124/75 91 OxyMask 5.00 03/23/21 03:00 82 17 122/80 95 Nasal Cannula 5.00 03/23/21 02:00 90 20 115/80 94 Nasal Cannula 5.00 03/23/21 01:30 Nasal Cannula 5.00 03/23/21 01:00 90 28 120/69 92 Nasal Cannula 3.00 03/23/21 01:00 85 03/23/21 00:00 36.5 Nasal Cannula 3.00 03/23/21 00:00 76 18 113/78 92 Nasal Cannula 3.00 03/22/21 23:59 Nasal Cannula 3.00 03/22/21 23:00 80 12 125/77 95 Nasal Cannula 3.00 03/22/21 22:00 65 16 124/80 90 Nasal Cannula 3.00 03/22/21 21:00 75 14 107/79 Nasal Cannula 3.00 03/22/21 20:00 85 12 109/69 Nasal Cannula 3.00 03/22/21 20:00 Nasal Cannula 3.00 03/22/21 19:00 100 03/22/21 19:00 96 15 123/84 91 Nasal Cannula 3.00 03/22/21 18:00 107 29 119/74 94 Nasal Cannula 3.00 03/22/21 17:00 113 12 129/91 95 Nasal Cannula 3.00 03/22/21 16:11 36.6 03/22/21 16:00 106 17 83 Nasal Cannula 3.00 03/22/21 15:11 114 03/22/21 15:00 117/92 I & O 03/23/21 07:00 Intake Total 1300 ml Output Total 0 ml Balance 1300 ml Capillary Refill : General Appearance: No Apparent Distress, WD/WN, Chronically ill HEENT: PERRL/EOMI Neck: Normal Inspection, Non Tender, Supple Respiratory: Chest Non Tender, No Accessory Muscle Use, No Respiratory Distress Cardiovascular: No Edema, Normal Peripheral Pulses Gastrointestinal: non tender, soft Extremity: Normal Capillary Refill, Normal Inspection, Non Tender, No Calf Tenderness, No Pedal Edema Neurologic/Psychiatric: Alert, Oriented x3, No Motor/Sensory Deficits, Normal Mood/Affect Skin: Warm/Dry Results Lab Laboratory Tests 03/22/21 14:00: White Blood Count 12.7H, Red Blood Count 3.67L, Hemoglobin 6.9*L, Hematocrit 27L , Mean Corpuscular Volume 73L, Mean Corpuscular Hemoglobin 19L, Mean Corpuscular Hemoglobin Concent 26L, Red Cell Distribution Width 18.9H, Platelet Count 469H, Mean Platelet Volume 11.0, Immature Granulocyte % (Auto) 1, Neutrophils (%) (Auto) 80H, Lymphocytes (%) (Auto) 11L, Monocytes (%) (Auto) 7, Eosinophils (%) (Auto) 1, Basophils (%) (Auto) 0, Neutrophils # (Auto) 10.2H, Lymphocytes # (Auto) 1.4, Monocytes # (Auto) 0.9, Eosinophils # (Auto) 0.2, Basophils # (Auto) 0.0, Immature Granulocyte # (Auto) 0.1, Neutrophils % (Manual) 86, Lymphocytes % (Manual) 7, Monocytes % (Manual) 5, Eosinophils % (Manual) 2, Percent Immature Platelet Fraction 5.4, Hypochromasia MARKED, Target Cells SLIGHT, Mecca Cells SLIGHT, Elliptocytes SLIGHT, Blood Morphology Comment NA, Absolute Reticulocyte Count 65, Percent Reticulocyte Count 1.76 03/22/21 17:00: Sodium Level 142, Potassium Level 3.2L, Chloride Level 109H, Carbon Dioxide Level 22, Anion Gap 11, Blood Urea Nitrogen 9, Creatinine 0.78, Estimat Glomerular Filtration Rate 71, BUN/Creatinine Ratio 12, Glucose Level 83, Calcium Level 8.6, Corrected Calcium 9.1, Total Bilirubin 1.3H, Aspartate Amino Transf (AST/SGOT) 17, Alanine Aminotransferase (ALT/SGPT) 12, Alkaline Phosphatase 52, Total Protein 5.8L, Albumin 3.4 03/22/21 19:20: White Blood Count 12.9H, Red Blood Count 3.99, Hemoglobin 8.3#L, Hematocrit 29L, Mean Corpuscular Volume 73L, Mean Corpuscular Hemoglobin 21L, Mean Corpuscular Hemoglobin Concent 28L, Red Cell Distribution Width 19.0H, Platelet Count 430H, Mean Platelet Volume 10.7, Immature Granulocyte % (Auto) 1, Neutrophils (%) (Auto) 74, Lymphocytes (%) (Auto) 16, Monocytes (%) (Auto) 7, Eosinophils (%) (Auto) 2, Basophils (%) (Auto) 1, Neutrophils # (Auto) 9.6H, Lymphocytes # (Auto ) 2.0, Monocytes # (Auto) 0.9, Eosinophils # (Auto) 0.3, Basophils # (Auto) 0.1, Immature Granulocyte # (Auto) 0.1 03/23/21 04:35: White Blood Count 12.4H, Red Blood Count 3.68L, Hemoglobin 7.4L, Hematocrit 27L, Mean Corpuscular Volume 73L, Mean Corpuscular Hemoglobin 20L, Mean Corpuscular Hemoglobin Concent 28L, Red Cell Distribution Width 19.0H, Platelet Count 365, Mean Platelet Volume 10.6, Immature Granulocyte % (Auto) 1, Neutrophils (%) (Auto) 80H, Lymphocytes (%) (Auto) 10L, Monocytes (%) (Auto) 7, Eosinophils (%) (Auto) 2, Basophils (%) (Auto) 0, Neutrophils # (Auto) 9.9H, Lymphocytes # (Auto) 1.3, Monocytes # (Auto) 0.9, Eosinophils # (Auto) 0.2, Basophils # (Auto) 0.1, Immature Granulocyte # (Auto) 0.1, Sodium Level 139, Potassium Level 3.1L, Chloride Level 107, Carbon Dioxide Level 22, Anion Gap 10, Blood Urea Nitrogen 7, Creatinine 0.76, Estimat Glomerular Filtration Rate 74, BUN/Creatinine Ratio 9, Glucose Level 86, Calcium Level 8.2L, Corrected Calcium 8.8, Total Bilirubin 1.1H, Aspartate Amino Transf (AST/SGOT) 15, Alanine Aminotransferase (ALT/SGPT) 12, Alkaline Phosphatase 54, Total Protein 5.3L, Albumin 3.3, Phosphorus Level 2.9, Magnesium Level 1.8 Assessment/Plan Assessment/Plan Assessment/Plan Atrial fibrillation with RVR Anemia h/o HTN h/o Hypothroid Continue to monitor Hgb and transfuse as necessary Hold anticoagulation due to anemia EGD and Colonoscopy tomorrow FRANK CARDENAS DO 03/23/211: Subjective Subjective/Events-last exam Patient still anemic. No blood per rectum that she notices. Tolerating bowel prep. Denies any abdominal pain. No new complaints. Denies n/v fever sweats chills shortness of breath or chest pain at this time. Objective Exam General Appearance: No Apparent Distress, WD/WN, Chronically ill HEENT: PERRL/EOMI, Normal ENT Inspection Neck: Normal Inspection, Non Tender, Supple Respiratory: Chest Non Tender, No Accessory Muscle Use, No Respiratory Distress Cardiovascular: No Edema, Irregularly Irregular Gastrointestinal: non tender, soft Extremity: Normal Capillary Refill, Normal Inspection, Non Tender Neurologic/Psychiatric: Alert, Oriented x3, Normal Mood/Affect Skin: Warm/Dry, Pallor Lymphatic: No Adenopathy Assessment/Plan Assessment/Plan Assessment/Plan Atrial fibrillation with RVR Anemia h/o HTN h/o Hypothroid Continue to monitor Hgb and transfuse as necessary Hold anticoagulation due to anemia EGD and Colonoscopy tomorrow Colon prep today. NPO after midnight. Supervisory-Addendum Brief Verification & Attestation Participated in pt care: history, MDM, physical Personally performed: exam, history, MDM, supervision of care Care discussed with: Medical Student Procedures: n/a Results interpretation: Verified all documentation Verification and Attestation of Medical Student E/M Service A medical student performed and documented this service in my presence. I reviewed and verified all information documented by the medical student and made modifications to such information, when appropriate. I personally performed the physical exam and medical decision making. Frank Cardenas, Mar 23, 2021,22:10 SABI FREITAS Mar 23, 2021 07:08 FRANK CARDENAS DO Mar 23, 2021 22:11
--- NOTE | 2021-03-23 08:10 | Diagnostic Imaging Report ---
INDICATION: CHF Frontal chest obtained at 0749 a.m. There is no prior study for comparison. Heart is mildly enlarged. There is mild central vascular congestion. There is some mild left infrahilar infiltrate. There is no pneumothorax or pleural fluid. IMPRESSION: Cardiomegaly with central vascular congestion with mild left infrahilar infiltrate. No pneumothorax or pleural fluid. Dictated by: Dictated on workstation # [id number]
[2021-03-23] MEDS: NS IV 1000 ML 1,000 ML IV SCH ×2 (08:45→14:17)
[2021-03-23] MEDS ORDERED: FUROSEMIDE 40 MG/4 ML INJ (LASIX) IVP NR (09:00)
[2021-03-23] MEDS ORDERED: RT-ALBUTEROL/IPRATROPIUM 3 ML (DUONEB) VIAL INH PRN (09:00)
[2021-03-23] MEDS: PANTOPRAZOLE 40 MG (PROTONIX) VIAL IV SCH (09:17)
[2021-03-23 10:06] LABS: BILIRUBIN,URINE NEGATIVE (NEGATIVE); CLARITY,URINE CLEAR; COLOR,URINE YELLOW; GLUCOSE, URINE (UA) NEGATIVE (NEGATIVE); KETONES,URINE NEGATIVE (NEGATIVE); LEUKOCYTE ESTERASE ,URINE NEGATIVE (NEGATIVE); NITRITE,URINE NEGATIVE (NEGATIVE); PROTEIN,URINE TRACE (NEGATIVE)
[2021-03-23 10:22] LABS: BACTERIA,URINE TRACE /HPF; WBC,URINE 0-2 /HPF
--- NOTE | 2021-03-23 11:21 | Tele-ICU Progress Note ---
Subjective Date Seen by a Provider: Mar 23, 2021 Time Seen by a Provider: 08:30 Sepsis Event Evaluation Height, Weight, BMI Height: '" Weight: lbs. oz. kg; 32.32 BMI Method: Exam Exam Patient acknowledged, consented, and participated in this virtual visit which was conducted using real time audio/video Vital Signs Date Time Temp Pulse Resp B/P (MAP) Pulse Ox O2 Delivery O2 Flow Rate FiO2 03/23/21 10:00 76 19 129/101 94 OxyMask 5.00 03/23/21 09:00 86 18 131/99 90 OxyMask 5.00 03/23/21 08:00 90 15 128/85 92 OxyMask 5.00 03/23/21 08:00 Nasal Cannula 6.00 03/23/21 07:00 93 27 123/99 89 OxyMask 5.00 03/23/21 06:00 97 20 137/78 95 OxyMask 5.00 03/23/21 05:00 92 26 126/80 91 OxyMask 5.00 03/23/21 04:01 OxyMask 5.00 03/23/21 04:00 36.6 OxyMask 5.00 03/23/21 04:00 90 20 124/75 91 OxyMask 5.00 03/23/21 03:00 82 17 122/80 95 Nasal Cannula 5.00 03/23/21 02:00 90 20 115/80 94 Nasal Cannula 5.00 03/23/21 01:30 Nasal Cannula 5.00 03/23/21 01:00 90 28 120/69 92 Nasal Cannula 3.00 03/23/21 01:00 85 03/23/21 00:00 36.5 Nasal Cannula 3.00 03/23/21 00:00 76 18 113/78 92 Nasal Cannula 3.00 03/22/21 23:59 Nasal Cannula 3.00 03/22/21 23:00 80 12 125/77 95 Nasal Cannula 3.00 03/22/21 22:00 65 16 124/80 90 Nasal Cannula 3.00 03/22/21 21:00 75 14 107/79 Nasal Cannula 3.00 03/22/21 20:00 85 12 109/69 Nasal Cannula 3.00 03/22/21 20:00 Nasal Cannula 3.00 03/22/21 19:00 100 03/22/21 19:00 96 15 123/84 91 Nasal Cannula 3.00 03/22/21 18:00 107 29 119/74 94 Nasal Cannula 3.00 03/22/21 17:00 113 12 129/91 95 Nasal Cannula 3.00 03/22/21 16:11 36.6 03/22/21 16:00 106 17 83 Nasal Cannula 3.00 03/22/21 15:11 114 03/22/21 15:00 117/92 I & O 03/23/21 06:59 Intake Total 1300 ml Output Total 0 ml Balance 1300 ml Height & Weight Height: '" Weight: lbs. oz. kg; 32.32 BMI Method: General Appearance: No Apparent Distress, WD/WN, Chronically ill HEENT: PERRL/EOMI Neck: Normal Inspection, Non Tender, Supple Respiratory: Chest Non Tender, No Accessory Muscle Use, No Respiratory Distress Cardiovascular: No Edema, Normal Peripheral Pulses Gastrointestinal: non tender, soft Extremity: Normal Capillary Refill, Normal Inspection, Non Tender, No Calf Tenderness, No Pedal Edema Neurologic/Psychiatric: Alert, Oriented x3, No Motor/Sensory Deficits, Normal Mood/Affect Skin: Warm/Dry Results Lab Laboratory Tests 03/22/21 14:00 03/22/21 17:00 03/22/21 19:20 03/23/21 04:35 Assessment/Plan Assessment/Plan (Tele-ICU Physician , Progress Note ) Available chart/ vitals / labs / Images reviewed Video assessment done using teleICU camera, rest of exam as per RN Discussed with RN , EXAM PER RN Events overnight : increased SOB Afebrile I/O = not recorder output Drips: Pressors: , hemodynamically stable Consultants: cards Hospital course: 03/22 A/P A fib RVR -rate controlled - no AC with anemia -cardiology to manage. anemia- ? suspected GIB -s/p PRBC transfusion on OSH 03/22 -follow HGB at noon Acute dyspnea and hypoxia 03/23 - suspected VO after transfusion - check cxr , lasix x1 - follow suspected GIB - sx consulted for scope eval leucocytosis -reactive vs infection - order PCT and UA - follow off ABX Lines : might need midline (Central Line Necessity Reviewed) Lees: OG: Nutrition: Analgesia: Anxiety/ delirium VTE Prophylaxis: SCD Stress Ulcer Prophylaxis: PPI Glycemic Control: Plans in collaboration with bedside consultants and IM MDs. Discussed with RN to reach out if any questions or concerns A total of 34 minutes of critical care time was devoted to this patient today, required to treat and/or prevent further deterioration of critical care condition ( as above) . DANIELLA CRAWFORD MD Mar 23, 2021 11:21
[2021-03-23] MEDS: dilTIAZem DRIP PRE-MIX 125 ML IV SCH (11:44)
--- NOTE | 2021-03-23 11:58 | Progress Note - Hospitalist ---
Subjective HPI/CC On Admission Date Seen by Provider: Mar 23, 2021 Time Seen by Provider: 11:00 CC: New onset AFIB with RVR with severe anemia symptomatic at 6.4 Hgb HPI: This is a 80yoWF who presented to the ER with palpitations and weakness found to have new onset AFIB with RVR with Hgb of 6.4. She did have some mild hypotension precluding a Cardizem drip bolus but she is on a Cardizem drip. I did notify Dr. Chung and placed all ICU orders. Will monitor Pt closely at this current time in the ICU. Subjective/Events-last exam Patient doing better Placed order for DNR at her request Still in atrial fibrillation on Cardizem drip Endoscopies scheduled for tomorrow Denies any pain Review of Systems General: Fatigue, Malaise Pulmonary: Dyspnea Cardiovascular: Palpitations Objective Exam Vital Signs Vital Signs Date Time Temp Pulse Resp B/P (MAP) Pulse Ox O2 Delivery O2 Flow Rate FiO2 03/24/21 04:00 Nasal Cannula 3.00 03/24/21 01:00 85 03/24/21 00:00 15 110/74 95 03/24/21 00:00 37.0 Capillary Refill : General Appearance: No Apparent Distress, WD/WN, Chronically ill, Obese, Other (Pale and frail) Respiratory: No Accessory Muscle Use, No Respiratory Distress, Decreased Breath Sounds Cardiovascular: Irregularly Irregular, Tachycardia Neurologic/Psychiatric: Alert, Oriented x3, No Motor/Sensory Deficits, Normal Mood/Affect Results/Procedures Lab Laboratory Tests 03/23/21 12:15 03/24/21 04:05 Patient resulted labs reviewed. Assessment/Plan Assessment and Plan Assess & Plan/Chief Complaint Assessment: New onset atrial fibrillation with rapid ventricular response Severe symptomatic anemia Suspected GI bleed endoscopy scheduled for tomorrow Mild hypotension Plan: Appreciate cardiology Endoscopies tomorrow Monitor closely Critical Care Critically Ill Patient Diagnosis/Problems Diagnosis/Problems (1) Atrial fibrillation with RVR (2) Anemia MALGORZATA GARCIA DO Mar 23, 2021 11:58
[2021-03-23] MEDS ORDERED: polyethylene glycoL Bowel Prep(MIRALAX) 238 GM PO SCH (12:00)
[2021-03-23 12:32] LABS: HEMATOCRIT 29 % (35-52); HEMOGLOBIN 8.2 g/dL (11.5-16.0); MEAN CORPUSCULAR HEMOGLOBIN 21 pg (25-34); MEAN CORPUSCULAR HGB CONC 29 g/dL (32-36); MEAN CORPUSCULAR VOLUME 72 fL (80-99); MEAN PLATELET VOLUME 10.5 fL (9.0-12.2); PLATELET COUNT 437 10^3/uL (130-400); WHITE BLOOD COUNT 14.6 10^3/uL (4.3-11.0)
--- NOTE | 2021-03-23 13:04 | Cardiology Progress Note ---
Progress Note-Cardiology Events since last exam Date Seen by Provider: Mar 23, 2021 Time Seen by Provider: 13:03 Events since last exam I am following her for atrial fibrillation. She denies chest pain, dyspnea at rest, palpitations, or syncope. Her chronic, mild ankle edema is unchanged. The plan is for endoscopy tomorrow. She is just starting the bowel preparation now. She has received 2 blood transfusions. Certain portions of this document may have been dictated utilizing voice recognition technology. Inherent to this technology, typographical and grammatical errors may exist. As much as I am diligent to identify and correct these mistakes, some errors may remain in the document. Vitals Last set of Vitals Signs Vital Signs 03/23/21 16:00 Pulse 84 Resp 15 B/P (MAP) 123/79 Pulse Ox 92 O2 Delivery OxyMask O2 Flow Rate 5.00 Labs Labs Laboratory Tests 03/22/21 17:00 03/22/21 19:20 03/23/21 04:35 03/23/21 12:15 Exam Vital Signs Vital Signs Date Time Temp Pulse Resp B/P (MAP) Pulse Ox O2 Delivery O2 Flow Rate FiO2 03/23/21 16:00 84 15 123/79 92 OxyMask 5.00 03/23/21 04:00 36.6 Physical Exam General: Alert. No acute distress. She is obese Eye: No xanthelasma. HENT: Normocephalic. Neck: Jugular venous pressure does not appear elevated. Respiratory: Lungs are clear to auscultation but with diffusely decreased breath sounds bilaterally. Respirations are non-labored. Breath sounds are equal. Symmetrical chest wall expansion. Cardiovascular: Normal rate. Irregular rhythm. No murmur. No gallop. 1+ bilat eral pretibial edema. Gastrointestinal: Soft. Normal bowel sounds. Skin: Warm. Dry. Neurologic: Alert and oriented to person, place, time. Cranial nerves 3-11 grossly intact. Psychiatric: Cooperative. Appropriate mood & affect. Labs Laboratory Tests Test 03/22/21 17:00 03/22/21 19:20 03/23/21 04:35 03/23/21 09:18 Range/Units Sodium Level 142 139 135-145 MMOL/L Potassium Level 3.2 L 3.1 L 3.6-5.0 MMOL/L Chloride Level 109 H 107 98-107 MMOL/L Carbon Dioxide Level 22 22 21-32 MMOL/L Anion Gap 11 10 5-14 MMOL/L Blood Urea Nitrogen 9 7 7-18 MG/DL Creatinine 0.78 0.76 0.60-1.30 MG/DL Estimat Glomerular Filtration Rate 71 74 BUN/Creatinine Ratio 12 9 Glucose Level 83 86 70-105 MG/DL Calcium Level 8.6 8.2 L 8.5-10.1 MG/DL Corrected Calcium 9.1 8.8 8.5-10.1 MG/DL Total Bilirubin 1.3 H 1.1 H 0.1-1.0 MG/DL Aspartate Amino Transf (AST/SGOT) 17 15 5-34 U/L Alanine Aminotransferase (ALT/SGPT) 12 12 0-55 U/L Alkaline Phosphatase 52 54 40-136 U/L Total Protein 5.8 L 5.3 L 6.4-8.2 GM/DL Albumin 3.4 3.3 3.2-4.5 GM/DL White Blood Count 12.9 H 12.4 H 4.3-11.0 10^3/uL Red Blood Count 3.99 3.68 L 3.80-5.11 10^6/uL Hemoglobin 8.3 #L 7.4 L 11.5-16.0 g/dL Hematocrit 29 L 27 L 35-52 % Mean Corpuscular Volume 73 L 73 L 80-99 fL Mean Corpuscular Hemoglobin 21 L 20 L 25-34 pg Mean Corpuscular Hemoglobin Concent 28 L 28 L 32-36 g/dL Red Cell Distribution Width 19.0 H 19.0 H 10.0-14.5 % Platelet Count 430 H 365 130-400 10^3/uL Mean Platelet Volume 10.7 10.6 9.0-12.2 fL Immature Granulocyte % (Auto) 1 1 % Neutrophils (%) (Auto) 74 80 H 42-75 % Lymphocytes (%) (Auto) 16 10 L 12-44 % Monocytes (%) (Auto) 7 7 0-12 % Eosinophils (%) (Auto) 2 2 0-10 % Basophils (%) (Auto) 1 0 0-10 % Neutrophils # (Auto) 9.6 H 9.9 H 1.8-7.8 10^3/uL Lymphocytes # (Auto) 2.0 1.3 1.0-4.0 10^3/uL Monocytes # (Auto) 0.9 0.9 0.0-1.0 10^3/uL Eosinophils # (Auto) 0.3 0.2 0.0-0.3 10^3/uL Basophils # (Auto) 0.1 0.1 0.0-0.1 10^3/uL Immature Granulocyte # (Auto) 0.1 0.1 0.0-0.1 10^3/uL Phosphorus Level 2.9 2.3-4.7 MG/DL Magnesium Level 1.8 1.6-2.4 MG/DL Urine Color YELLOW Urine Clarity CLEAR Urine pH 6.0 5-9 Urine Specific [place] >=1.030 1.016-1.022 Urine Protein TRACE H NEGATIVE Urine Glucose (UA) NEGATIVE NEGATIVE Urine Ketones NEGATIVE NEGATIVE Urine Nitrite NEGATIVE NEGATIVE Urine Bilirubin NEGATIVE NEGATIVE Urine Urobilinogen 1.0 < = 1.0 MG/DL Urine Leukocyte Esterase NEGATIVE NEGATIVE Urine RBC (Auto) NEGATIVE NEGATIVE Urine RBC NONE /HPF Urine WBC 0-2 /HPF Urine Squamous Epithelial Cells 2-5 /HPF Urine Crystals NONE /LPF Urine Bacteria TRACE /HPF Urine Casts NONE /LPF Urine Mucus NEGATIVE /LPF Urine Culture Indicated NO Test 03/23/21 12:15 Range/Units White Blood Count 14.6 H 4.3-11.0 10^3/uL Red Blood Count 3.99 3.80-5.11 10^6/uL Hemoglobin 8.2 L 11.5-16.0 g/dL Hematocrit 29 L 35-52 % Mean Corpuscular Volume 72 L 80-99 fL Mean Corpuscular Hemoglobin 21 L 25-34 pg Mean Corpuscular Hemoglobin Concent 29 L 32-36 g/dL Red Cell Distribution Width 19.1 H 10.0-14.5 % Platelet Count 437 H 130-400 10^3/uL Mean Platelet Volume 10.5 9.0-12.2 fL B-Type Natriuretic Peptide 681.1 H <100.0 PG/ML Procalcitonin 0.03 <0.10 NG/ML Diagnosis/Problems Diagnosis/Problems (1) Unspecified atrial fibrillation Assessment & Plan: She has atrial fibrillation of unknown duration. She seems to be asymptomatic with this. Her left atrium is only mildly dilated by echocardiogram which suggests that the atrial fibrillation may be something recent. Unclear whether or not this may have been brought on by the severe anemia or this just happens to be a coincidence. I have started her on oral beta-rupal and increased the dose today to improve rate control. We will need to hold off on starting anticoagulation until we determine the source of the anemia. She will be having an endoscopy tomorrow which will help guide our decision for anticoagulation. If we cannot get her heart rates under control, she may need a transesophageal echocardiogram and cardioversion. (2) Anemia Assessment & Plan: Etiology unclear. She has not had any blood in her stool or urine. General surgery is following her and plans on endoscopy tomorrow. She has received two blood transfusions. (3) Primary hypertension Assessment & Plan: Her blood pressures have improved with metoprolol. I did not resume her home dose of amlodipine so that we can use higher doses of metoprolol if needed for rate control for the atrial fibrillation. (4) Pulmonary hypertension Assessment & Plan: By her report, she has pulmonary hypertension. She is followed with a au pair at [facility] in [place], [place] for management of this condition. The echocardiogram from the outside hospital prior to admission here only shows mild pulmonary hypertension. This can be followed by her regular au pair at the outside facility after discharge. (5) Aortic regurgitation Assessment & Plan: Her echocardiogram from the outside hospital showed mild aortic regurgitation. This should not be contributing to the current situation but will need to be followed longitudinally after discharge. (6) Obesity Assessment & Plan: She needs to work on weight loss. There is stated that 20 pounds of weight loss will help reduce the risk of recurrent atrial fibri llation. PRAVEEN ALONZO JR, MD Mar 23, 2021 13:04
--- NOTE | 2021-03-23 13:10 | Progress Note - Hospitalist ---
ROMMEL TORRES 03/23/21 1310: Subjective HPI/CC On Admission Time Seen by Provider: 08:00 CC: New onset AFIB with RVR with severe anemia symptomatic at 6.4 Hgb HPI: This is a 80yoWF who presented to the ER with palpitations and weakness found to have new onset AFIB with RVR with Hgb of 6.4. She did have some mild hypotension precluding a Cardizem drip bolus but she is on a Cardizem drip. I did notify Dr. Chung and placed all ICU orders. Will monitor Pt closely at this current time in the ICU. Subjective/Events-last exam She reports B/L LE for the past few days but is better day. She is one 5L/min of oxygen from oxygen mask. She has dry cough and SOB on exertion and denies any other symptoms. Objective Exam Vital Signs Vital Signs Date Time Temp Pulse Resp B/P (MAP) Pulse Ox O2 Delivery O2 Flow Rate FiO2 03/23/21 12:00 Nasal Cannula 6.00 03/23/21 10:00 76 19 129/101 94 03/23/21 04:00 36.6 Capillary Refill : General Appearance: Chronically ill, Mild Distress Respiratory: No Accessory Muscle Use, No Respiratory Distress, Decreased Breath Sounds Cardiovascular: No No JVD, No Bradycardia Extremity: Pedal Edema Results/Procedures Lab Laboratory Tests 03/22/21 14:00 03/22/21 17:00 03/22/21 19:20 03/23/21 04:35 03/23/21 12:15 Patient resulted labs reviewed. Assessment/Plan Assessment and Plan Assess & Plan/Chief Complaint Assessment: A fib with RVR Anemia at 7.4 GI bleed possible Colon cancer Plan: Consult cardiology and General Surgery CMP, CBC with diff, EKG ordered Pure liquid diet EGD scheduled for Saturday IVY GARCIA 03/24/21 0534: Subjective HPI/CC On Admission Date Seen by Provider: Mar 23, 2021 Supervisory-Addendum Brief Verification & Attestation Participated in pt care: history, MDM, physical Personally performed: exam, history, MDM, supervision of care Care discussed with: Medical Student Procedures: n/a Results interpretation: Verified all documentation Verification and Attestation of Medical Student E/M Service A medical student performed and documented this service in my presence. I reviewed and verified all information documented by the medical student and made modifications to such information, when appropriate. I personally performed the physical exam and medical decision making. Ivy Garcia, Mar 24, 2021,05:33 ROMMEL TORRES Mar 23, 2021 13:10 IVY GARCIA DO Mar 24, 2021 05:34
--- NOTE | 2021-03-23 15:02 | Pulmonary Consultation ---
DELMIS FERNANDEZ MED STUDENT 03/23/21 1501: History of Present Illness History of Present Illness Date Seen by Provider: Mar 22, 2021 Time Seen by Provider: 14:45 History of Present Illness This note was originally written yesterday but had to be rewritten due to a template error. Alistair Hein is a 80 y.o. F with pmh of hypertension and hypothyroidism as well as pulmonary artery hypertension who was seen at a routine check-up 03/22 and found to be in atrial fibrillation with RVR. She was sent to the ED where she was found to be anemic with HGB <7 and still in atrial fibrillation with RVR. The patient was transferred to the ICU and received 1 unit PRBC en route. She admits several years of shortness of breath on exertion but denies symptoms including dark stools, bloody stools, palpitations, chest pain, new/worsening SOB, leg pain, nausea, vomiting, abdominal pain, lightheadedness, and recent trauma. Ms. Hein's last colonoscopy was 30 years prior. Allergies and Home Medications Allergies Coded Allergies: No Known Drug Allergies (Unverified , 03/22/21) Home Medications Alendronate Sodium 70 Mg Tablet, 70 MG PO SATURDAY, (Reported) Amlodipine Besylate 5 Mg Tablet, 5 MG PO DAILY, (Reported) Levothyroxine Sodium 100 Mcg Tablet, 100 MCG PO DAILY, (Reported) Past Medical/Social/Family Hx Patient Social History Marrital Status: Number of Children: 3 Living Status: healthy Employed/Student: retired Tobacco Use?: No Smoking Status: Never a Smoker Substance use?: No Alcohol Use?: No (quit "years ago") Pt stated abuse/neglect: No Immunizations Up To Date Influenza Vaccine Up-to-Date: No; Not Current First/Initial COVID19 Vaccinat: AUGUST 2020 Second COVID19 Vaccination S[place]: SEPTEMBER 2020 Current Status Advance Directives: No Communicates: Verbally Primary Language: Sinhala Preferred Spoken Language: Sinhala Is interpretation needed?: No Past Medical History HTN, hypothyroidism, colonscopy performed 30 years ago Family Medical History Family Hx: Mom- , congenital kidney problem, 2 to 3 strokes in her 50's father- , symptomatic bradycardia 3 children all healthy sister - at 43yo due to unknown origin of cancer one brother - of lung problems 3 years ago second brother- healthy Review of Systems Date Seen by Provider: Mar 22, 2021 Time Seen by Provider: 14:45 Constitutional: No: Fever, Chills Eyes: No: Pain ENT: No: Throat pain Respiratory: SOB with excertion (chronic); No: Shortness of breath Cardiovascular: No: Chest Pain, Palpitations, Lt Headedness Gastrointestinal: No: Nausea, Vomiting, Abdominal Pain, Melena, Hematochezia Skin: No: Rash Neurological: No: Weakness, Numbness Sepsis Event Evaluation Height, Weight, BMI Height: '" Weight: lbs. oz. kg; 32.32 BMI Method: Exam Exam Physical exam performed 03/22/21 2:45 PM Height & Weight Height: '" Weight: lbs. oz. kg; 32.32 BMI Method: General Appearance: Chronically ill, Mild Distress HEENT: PERRL/EOMI Neck: Normal Inspection, Non Tender, Supple Respiratory: Lungs Clear, Normal Breath Sounds, No Accessory Muscle Use, No Respiratory Distress Cardiovascular: No No JVD, No Bradycardia; Irregularly Irregular, Tachycardia (115's to 120's) Gastrointestinal: non tender, soft Extremity: Pedal Edema Neurologic/Psychiatric: Alert, Oriented x3, No Motor/Sensory Deficits, Normal Mood/Affect Skin: Warm/Dry Results Lab Laboratory Tests 03/22/21 14:00 03/22/21 17:00 03/22/21 19:20 03/23/21 04:35 03/23/21 12:15 Assessment/Plan Assessment/Plan per visit 03/22/21 new onset Afib with RVR -cardiology to evaluate and manage severe anemia, likely chronic -transfuse if HGB <7 -type and cross -consult surgery -normotensive upon arrival. Monitor for signs of shock. DVT/PE prophylaxis -hold anticoagulants due to anemia -SCDs obtain CBC, CMP DANIELLA CRAWFORD MD 03/24/21 1541: Allergies and Home Medications Allergies Coded Allergies: No Known Drug Allergies (Unverified , 03/22/21) Home Medications Alendronate Sodium 70 Mg Tablet, 70 MG PO SATURDAY, (Reported) Amlodipine Besylate 5 Mg Tablet, 5 MG PO DAILY, (Reported) Levothyroxine Sodium 100 Mcg Tablet, 100 MCG PO DAILY, (Reported) Supervisory-Addendum Brief Verification & Attestation Participated in pt care: history, MDM, physical Personally performed: history, MDM, supervision of care Care discussed with: Medical Student Procedures: n/a PLAN as above A medical student performed and documented this service. I reviewed all information documented by the medical student and made modifications to such information, when appropriate. Medical student performed patients physical exam. Medical decision making was done during tele-rounds with this medical student and a bedside RN . Plans in collaboration with bedside consultants and IM MDs. Discussed with RN to reach out if any questions or concerns A total of 33 minutes of critical care time was devoted to this patient today, required to treat and/or prevent further deterioration of critical care condition ( as above) . DELMIS FERNANDEZ MED STUDENT Mar 23, 2021 15:01 DANIELLA CRAWFORD MD Mar 24, 2021 15:41
[2021-03-24] MEDS: NS IV 1000 ML 1,000 ML IV SCH ×2 (01:58→12:01)
[2021-03-24 04:13] LABS: BASOPHILS % (AUTO) 0 % (0-10); EOSINOPHILS # (AUTO) 0.4 10^3/uL (0.0-0.3); EOSINOPHILS % (AUTO) 3 % (0-10); HEMATOCRIT 26 % (35-52); HEMOGLOBIN 7.3 g/dL (11.5-16.0); LYMPHOCYTES # (AUTO) 1.5 10^3/uL (1.0-4.0); LYMPHOCYTES % (AUTO) 12 % (12-44); MEAN CORPUSCULAR HEMOGLOBIN 21 pg (25-34); MEAN CORPUSCULAR HGB CONC 28 g/dL (32-36); MEAN CORPUSCULAR VOLUME 74 fL (80-99); MEAN PLATELET VOLUME 10.3 fL (9.0-12.2); MONOCYTES # (AUTO) 1.1 10^3/uL (0.0-1.0); MONOCYTES % (AUTO) 9 % (0-12); NEUTROPHILS # (AUTO) 9.6 10^3/uL (1.8-7.8); NEUTROPHILS % (AUTO) 76 % (42-75); PLATELET COUNT 355 10^3/uL (130-400); WHITE BLOOD COUNT 12.7 10^3/uL (4.3-11.0)
[2021-03-24 04:39] LABS: POTASSIUM 2.8 MMOL/L (3.6-5.0)
[2021-03-24 04:40] LABS: CALCIUM 8.3 MG/DL (8.5-10.1)
[2021-03-24 04:45] LABS: CREATININE SERUM 0.83 MG/DL (0.60-1.30)
[2021-03-24 04:47] LABS: MAGNESIUM 1.7 MG/DL (1.6-2.4)
[2021-03-24] MEDS: POTASSIUM CL 10MEQ/50ML IVPB 50 ML IV SCH (05:00)
[2021-03-24] MEDS: MAGNESIUM 1 GM/100 ML IVPB 100 ML IV SCH (05:00)
[2021-03-24 05:02] LABS: BAND NEUTROPHILS 1 %; EOSINOPHILS % (MANUAL) 4 %; LYMPHOCYTES % (MANUAL) 10 %; MONOCYTES % (MANUAL) 8 %; NEUTROPHILS % (MANUAL) 77 %
[2021-03-24 05:03] LABS: BURR CELLS SLIGHT; ELLIPT/OVALOCYTES SLIGHT; HYPOCHROMASIA MARKED; TARGET CELLS SLIGHT; TOXIC GRANULATION/VACUOLAZATIO 1+
[2021-03-24 05:04] LABS: CRENATED RBC SLIGHT
[2021-03-24] MEDS: KCL 20 MEQ TAB (K-DUR) PO SCH (05:12)
--- NOTE | 2021-03-24 08:01 | Progress Note - Surgery ---
FORTINOTAMYSABI 03/24/21 0801: Subjective Date Seen by a Provider: Mar 24, 2021 Time Seen by a Provider: 07:30 Subjective/Events-last exam Pt denies any complaints at this time. Denies any fever, chills, nausea, vomiting, diarrhea, or chest pain. Hgb at 7.3. EGD and colonoscopy today. Objective Exam Vital Signs Date Time Temp Pulse Resp B/P (MAP) Pulse Ox O2 Delivery O2 Flow Rate FiO2 03/24/21 07:00 69 03/24/21 06:00 71 20 106/61 93 Nasal Cannula 5.00 03/24/21 05:00 68 17 115/70 95 Nasal Cannula 5.00 03/24/21 04:00 37.0 03/24/21 04:00 Nasal Cannula 3.00 03/24/21 04:00 74 17 105/88 95 Nasal Cannula 5.00 03/24/21 03:00 73 16 102/69 93 Nasal Cannula 5.00 03/24/21 02:44 Nasal Cannula 3.00 03/24/21 02:00 75 16 111/78 92 Nasal Cannula 5.00 03/24/21 01:00 85 03/24/21 01:00 85 17 105/67 97 Nasal Cannula 5.00 03/24/21 00:00 75 15 110/74 95 Nasal Cannula 5.00 03/24/21 00:00 37.0 Nasal Cannula 5.00 03/23/21 23:59 Nasal Cannula 3.00 03/23/21 23:00 76 14 118/78 96 Nasal Cannula 5.00 03/23/21 22:00 84 16 116/60 96 Nasal Cannula 5.00 03/23/21 21:00 85 17 112/70 96 Nasal Cannula 5.00 03/23/21 20:27 OxyMask 5.00 03/23/21 20:00 81 21 119/79 94 Nasal Cannula 5.00 03/23/21 19:14 37.0 03/23/21 19:00 81 18 116/71 95 Nasal Cannula 5.00 03/23/21 19:00 81 03/23/21 18:00 80 17 128/83 93 OxyMask 5.00 03/23/21 17:00 87 19 130/91 93 OxyMask 5.00 03/23/21 16:00 84 15 123/79 92 OxyMask 5.00 03/23/21 15:10 Nasal Cannula 6.00 03/23/21 15:00 96 16 123/79 92 OxyMask 5.00 03/23/21 14:00 90 24 130/96 94 OxyMask 5.00 03/23/21 13:00 93 24 124/78 90 OxyMask 5.00 03/23/21 12:52 104 03/23/21 12:00 99 22 142/97 94 OxyMask 5.00 03/23/21 12:00 Nasal Cannula 6.00 03/23/21 11:00 90 35 131/94 94 OxyMask 5.00 03/23/21 10:00 76 19 129/101 94 OxyMask 5.00 03/23/21 09:00 86 18 131/99 90 OxyMask 5.00 03/23/21 08:00 90 15 128/85 92 OxyMask 5.00 03/23/21 08:00 Nasal Cannula 6.00 I & O 03/24/21 07:00 Intake Total 2850 ml Output Total 3100 ml Balance -250 ml Capillary Refill : General Appearance: No Apparent Distress, WD/WN, Chronically ill, Other (Pale and frail) HEENT: PERRL/EOMI Neck: Normal Inspection, Non Tender, Supple Respiratory: No Accessory Muscle Use, No Respiratory Distress, Decreased Breath Sounds Cardiovascular: Irregularly Irregular Gastrointestinal: non tender, soft Extremity: Normal Capillary Refill, Normal Inspection, Non Tender, No Calf Tenderness, No Pedal Edema Neurologic/Psychiatric: Alert, Oriented x3, No Motor/Sensory Deficits, Normal Mood/Affect Skin: Warm/Dry, Pallor Results Lab Laboratory Tests 03/23/21 09:18: Urine Color YELLOW, Urine Clarity CLEAR, Urine pH 6.0, Urine Specific [place] >=1.030, Urine Protein TRACEH, Urine Glucose (UA) NEGATIVE, Urine Ketones NEGATIVE, Urine Nitrite NEGATIVE, Urine Bilirubin NEGATIVE, Urine Urobilinogen 1.0, Urine Leukocyte Esterase NEGATIVE, Urine RBC (Auto) NEGATIVE, Urine RBC NONE, Urine WBC 0-2, Urine Squamous Epithelial Cells 2-5, Urine Crystals NONE, Urine Bacteria TRACE, Urine Casts NONE, Urine Mucus NEGATIVE, Urine Culture Indicated NO 03/23/21 12:15: White Blood Count 14.6H, Red Blood Count 3.99, Hemoglobin 8.2L, Hematocrit 29L, Mean Corpuscular Volume 72L, Mean Corpuscular Hemoglobin 21L, Mean Corpuscular Hemoglobin Concent 29L, Red Cell Distribution Width 19.1H, Platelet Count 437H, Mean Platelet Volume 10.5, B-Type Natriuretic Peptide 681.1H, Procalcitonin 0.03 03/24/21 04:05: White Blood Count 12.7H, Red Blood Count 3.56L, Hemoglobin 7.3L, Hematocrit 26L, Mean Corpuscular Volume 74L, Mean Corpuscular Hemoglobin 21L, Mean Corpuscular Hemoglobin Concent 28L, Red Cell Distribution Width 19.7H, Platelet Count 355, Mean Platelet Volume 10.3, Immature Granulocyte % (Auto) 0, Neutrophils (%) (Auto) 76H, Lymphocytes (%) (Auto) 12, Monocytes (%) (Auto) 9, Eosinophils (%) (Auto) 3, Basophils (%) (Auto) 0, Neutrophils # (Auto) 9.6H, Lymphocytes # (Auto) 1.5, Monocytes # (Auto) 1.1H, Eosinophils # (Auto) 0.4H, Basophils # (Auto) 0.0, Immature Granulocyte # (Auto) 0.1, Neutrophils % (Manual) 77, Lymphocytes % (Manual) 10, Monocytes % (Manual) 8, Eosinophils % (Manual) 4, Band Neutrophils 1, Toxic Granulation 1+, Hypochromasia MARKED, Target Cells SLIGHT, [place] Cells SLIGHT, Crenated Cell SLIGHT, Elliptocytes SLIGHT, Sodium Level 138, Potassium Level 2.8L, Chloride Level 106, Carbon Dioxide Level 22, Anion Gap 10, Blood Urea Nitrogen 5L, Creatinine 0.83, Estimat Glomerular Filtration Rate 66, BUN/Creatinine Ratio 6, Glucose Level 83, Calcium Level 8.3L , Phosphorus Level 3.0, Magnesium Level 1.7 Microbiology 03/22/21 MRSA Screen - Final, Complete MRSA not isolated Assessment/Plan Assessment/Plan Assessment/Plan Atrial fibrillation with RVR Anemia h/o HTN h/o Hypothroid Continue to monitor Hgb and transfuse as necessary Hold anticoagulation due to anemia EGD and Colonoscopy today JOSH CARDENAS DO 03/24/21 1605: Subjective Subjective/Events-last exam Patient tolerated bowel prep. Hgb 7.3. No blood in stools. Denies abdominal pain. Denies n/v fever sweats chills shortness of breath or chest pain. For EGD/colonoscopy today. Objective Exam General Appearance: No Apparent Distress, WD/WN, Chronically ill HEENT: PERRL/EOMI, Normal ENT Inspection Neck: Normal Inspection, Non Tender, Supple Respiratory: Chest Non Tender, No Accessory Muscle Use, No Respiratory Distress Cardiovascular: No JVD, Irregularly Irregular Gastrointestinal: non tender, soft Extremity: Normal Capillary Refill, Normal Inspection, Non Tender, No Calf Tenderness Neurologic/Psychiatric: Alert, Oriented x3, No Motor/Sensory Deficits, Normal Mood/Affect Skin: Warm/Dry, Pallor Lymphatic: No Adenopathy Assessment/Plan Assessment/Plan Assessment/Plan Atrial fibrillation with RVR Anemia h/o HTN h/o Hypothroid Continue to monitor Hgb and transfuse as necessary Hold anticoagulation due to anemia EGD and Colonoscopy today Supervisory-Addendum Brief Verification & Attestation Participated in pt care: history, MDM, physical Personally performed: exam, history, MDM, supervision of care Care discussed with: Medical Student Procedures: n/a Results interpretation: Verified all documentation Verification and Attestation of Medical Student E/M Service A medical student performed and documented this service in my presence. I reviewed and verified all information documented by the medical student and made modifications to such information, when appropriate. I personally performed the physical exam and medical decision making. Josh Cardenas, Mar 24, 2021,16:05 SABI FREITAS Mar 24, 2021 08:01 JOSH CARDENAS DO Mar 24, 2021 16:05
[2021-03-24] MEDS: PANTOPRAZOLE 40 MG (PROTONIX) VIAL IV SCH (08:30)
[2021-03-24] MEDS: meTOproloL SUCCINATE 50 MG (TOPROL XL) TAB PO SCH (08:30)
[2021-03-24] MEDS ORDERED: PROPOFOL INJECTION 50 ML IV ONE (09:31)
[2021-03-24] MEDS ORDERED: MIDAZOLAM 2 MG/2 ML (VERSED) VIAL ONE (09:45)
[2021-03-24] MEDS ORDERED: NS IV 500 ML 500 ML ONE (09:57)
[2021-03-24] MEDS ORDERED: KETAMINE SYRINGE 50 MG/5 ML SYRINGE ONE (10:15)
[2021-03-24] MEDS ORDERED: HURRICAINE EXT TUBE (BENZOCAINE) XX ONE (11:15)
--- NOTE | 2021-03-24 11:20 | Anesthesia-General Post-Op ---
MAC Patient Condition Mental Status/LOC: Same as Preop Cardiovascular: Satisfactory Nausea/Vomiting: Absent Respiratory: Satisfactory Pain: Controlled Complications: Absent Post Op Complications Complications None Follow Up Care/Instructions Patient Instructions None needed. Anesthesiology Discharge Order Discharge Order Patient is doing well, no complaints, stable vital signs, no apparent adverse anesthesia problems. No complications reported per nursing. CARMELITA LEIGH CRNA Mar 24, 2021 11:20
--- NOTE | 2021-03-24 11:52 | Pulmonary Progress Note ---
DELMIS FERNANDEZ MED STUDENT 03/24/21 1152: Subjective Date Seen by a Provider: Mar 24, 2021 Time Seen by a Provider: 06:55 Subjective/Events-last exam Alistair states no new pain. She has done the bowel prep for her colonoscopy today. No fevers, chills, nausea, vomiting, chest pain. SOB not worse than previous nights. Sepsis Event Evaluation Height, Weight, BMI Height: '" Weight: lbs. oz. kg; 32.32 BMI Method: Exam Exam Patient acknowledged, consented, and participated in this virtual visit which was conducted using real time audio/video Vital Signs Date Time Temp Pulse Resp B/P (MAP) Pulse Ox O2 Delivery O2 Flow Rate FiO2 03/24/21 11:15 OxyMask 10.00 03/24/21 11:13 99 OxyMask 15.00 03/24/21 11:00 77 16 109/67 97 OxyMask 15.00 03/24/21 10:00 74 15 123/87 93 Nasal Cannula 5.00 03/24/21 09:00 73 17 115/78 94 Nasal Cannula 5.00 03/24/21 08:00 37.0 03/24/21 08:00 Nasal Cannula 3.00 03/24/21 08:00 70 21 119/78 90 Nasal Cannula 5.00 03/24/21 07:00 63 12 99/70 95 Nasal Cannula 5.00 03/24/21 07:00 69 03/24/21 06:00 71 20 106/61 93 Nasal Cannula 5.00 03/24/21 05:00 68 17 115/70 95 Nasal Cannula 5.00 03/24/21 04:00 37.0 03/24/21 04:00 Nasal Cannula 3.00 03/24/21 04:00 74 17 105/88 95 Nasal Cannula 5.00 03/24/21 03:00 73 16 102/69 93 Nasal Cannula 5.00 03/24/21 02:44 Nasal Cannula 3.00 03/24/21 02:00 75 16 111/78 92 Nasal Cannula 5.00 03/24/21 01:00 85 03/24/21 01:00 85 17 105/67 97 Nasal Cannula 5.00 03/24/21 00:00 75 15 110/74 95 Nasal Cannula 5.00 03/24/21 00:00 37.0 Nasal Cannula 5.00 03/23/21 23:59 Nasal Cannula 3.00 03/23/21 23:00 76 14 118/78 96 Nasal Cannula 5.00 03/23/21 22:00 84 16 116/60 96 Nasal Cannula 5.00 03/23/21 21:00 85 17 112/70 96 Nasal Cannula 5.00 03/23/21 20:27 OxyMask 5.00 03/23/21 20:00 81 21 119/79 94 Nasal Cannula 5.00 03/23/21 19:14 37.0 03/23/21 19:00 81 18 116/71 95 Nasal Cannula 5.00 03/23/21 19:00 81 03/23/21 18:00 80 17 128/83 93 OxyMask 5.00 03/23/21 17:00 87 19 130/91 93 OxyMask 5.00 03/23/21 16:00 84 15 123/79 92 OxyMask 5.00 03/23/21 15:10 Nasal Cannula 6.00 03/23/21 15:00 96 16 123/79 92 OxyMask 5.00 03/23/21 14:00 90 24 130/96 94 OxyMask 5.00 03/23/21 13:00 93 24 124/78 90 OxyMask 5.00 03/23/21 12:52 104 03/23/21 12:00 99 22 142/97 94 OxyMask 5.00 03/23/21 12:00 Nasal Cannula 6.00 I & O 03/24/21 07:00 Intake Total 2850 ml Output Total 3100 ml Balance -250 ml Height & Weight Height: '" Weight: lbs. oz. kg; 32.32 BMI Method: General Appearance: No Apparent Distress, WD/WN, Chronically ill, Other (Pale and frail) HEENT: PERRL/EOMI Neck: Normal Inspection, Non Tender, Supple Respiratory: Lungs Clear, Normal Breath Sounds, No Accessory Muscle Use, No Respiratory Distress Cardiovascular: Regular Rate, Rhythm (rate in the 90's. ) Gastrointestinal: non tender, soft Extremity: Normal Capillary Refill, Normal Inspection, Non Tender, No Calf Tenderness, No Pedal Edema Neurologic/Psychiatric: Alert, Oriented x3, No Motor/Sensory Deficits, Normal Mood/Affect Skin: Warm/Dry, Pallor Results Lab Laboratory Tests 03/22/21 14:00 03/22/21 17:00 03/22/21 19:20 03/23/21 04:35 03/23/21 12:15 03/24/21 04:05 Assessment/Plan Assessment/Plan anemia, HGB 7.3 from 8.2 yesterday -EGD and colonoscopy today -transfuse if <7 Hypokalemia 2.8 from 3.1 -unclear how much potassium was given at daytime yesterday -50 given IV by night nurse as well as 2mg magnesium -recheck tomorrow or if patient becomes symptomatic Atrial fibrillation with RVR, new diagnosis -on metoprolol, rate controlled although the rate was regular when I was in the room. -per night RN has been in rate controlled afib overnight Leukocytosis, improved 12.7 from 14.6 Nighttime hypoxia, on 5L DVT/PE prophylaxis held due to anemia DANIELLA CRAWFORD MD 03/24/21 190: Supervisory-Addendum Brief Verification & Attestation Participated in pt care: history, MDM, physical Personally performed: history, MDM, supervision of care Care discussed with: Medical Student Procedures: n/a PLAN as above A medical student performed and documented this service. I reviewed all information documented by the medical student and made modifications to such information, when appropriate. Medical student performed patients physical exam. Medical decision making was done during tele-rounds with this medical student and a bedside RN . Plans in collaboration with bedside consultants and IM MDs. Discussed with RN to reach out if any questions or concerns A total of minutes of critical care time was devoted to this patient today, required to treat and/or prevent further deterioration of critical care condition ( as above) . DELMIS FERNANDEZ MED STUDENT Mar 24, 2021 11:52 DANIELLA CRAWFORD MD Mar 24, 2021 19:01
--- NOTE | 2021-03-24 12:39 | Progress Note - Hospitalist ---
Subjective HPI/CC On Admission Date Seen by Provider: Mar 24, 2021 Time Seen by Provider: 11:00 CC: New onset AFIB with RVR with severe anemia symptomatic at 6.4 Hgb HPI: This is a 80yoWF who presented to the ER with palpitations and weakness found to have new onset AFIB with RVR with Hgb of 6.4. She did have some mild hypotension precluding a Cardizem drip bolus but she is on a Cardizem drip. I did notify Dr. Chung and placed all ICU orders. Will monitor Pt closely at this current time in the ICU. Subjective/Events-last exam Patient doing much better Cardizem drip off Metoprolol maintained Hemoglobin noted Still very weak PT and OT Review of Systems General: Fatigue, Malaise Pulmonary: Dyspnea Objective Exam Vital Signs Vital Signs Date Time Temp Pulse Resp B/P (MAP) Pulse Ox O2 Delivery O2 Flow Rate FiO2 03/25/21 04:00 Nasal Cannula 3.00 03/25/21 04:00 36.0 98 18 111/78 92 Capillary Refill : General Appearance: No Apparent Distress, WD/WN, Chronically ill, Other (Pale) Respiratory: Lungs Clear Cardiovascular: Irregularly Irregular Neurologic/Psychiatric: Alert, Oriented x3, No Motor/Sensory Deficits, Normal Mood/Affect Results/Procedures Lab Patient resulted labs reviewed. Assessment/Plan Assessment and Plan Assess & Plan/Chief Complaint Assessment: New onset atrial fibrillation with rapid ventricular response Severe symptomatic anemia Suspected GI bleed endoscopy scheduled for tomorrow Mild hypotension Plan: Appreciate cardiology Endoscopies tomorrow Monitor closely 03/24/2021: Supportive care Transfer to fourth floor PT and OT Critical Care Critically Ill Patient Diagnosis/Problems Diagnosis/Problems (1) Atrial fibrillation with RVR (2) Anemia MALGORZATA GARCIA DO Mar 24, 2021 12:39
--- NOTE | 2021-03-24 13:51 | Occupational Therapy Eval ---
OT Evaluation-General/PLF Medical Diagnosis Admission Date Mar 22, 2021 at 14:57 Medical Diagnosis: Afib with RVR Onset Date: Mar 22, 2021 Therapy Diagnosis Therapy Diagnosis: Impaired endurance, balance, adls Precautions Precautions/Isolations: Standard Precautions Comments liquid diet Referral Referral Reason: Evaluation/Treatment Medical History Pertinent Medical History: HTN, Hypothroidism Current History Pt presents to ICU from [facility] due to asymptomatic Afib with RVR and anemia. Pt with scheduled EGD and colonoscopy. She reports living alone in a 2 story home. All needs met on main level. She was indep with adls and iadls. No assistive device and still drives. Reviewed History: Yes Social History Home: Multilevel Current Living Status: Alone Entry Into Home: Ramp pt reports never using stairs within home. ADL-Prior Level of Function SCALE: Activities may be completed with or without assistive devices. 0-Htvbkiirwt-nlhrvsm completes the activity by him/herself with no assistance from a helper. 5-Set-up or Clean-up Assistance-helper sets up or cleans up; patient completes activity. [place] assists only prior to or following the activity. 4-Supervision or Touching Assistance-helper provides verbal cues and/or touching/steadying and/or contact guard assistance as patient completes activity. Assistance may be provided throughout the activity or intermittently. 3-Partial/Moderate Assistance-helper does LESS THAN HALF the effort. [place] lifts, holds or supports trunk or limbs, but provides less than half the effort. 2-Substantial/Maximal Assistance-helper does MORE THAN HALF the effort. [place] lifts or holds trunk or limbs and provides more than half the effort. 3-Ccxrbzfro-ujgaij does ALL the effort. Patient does none of the effort to complete the activity. Or, the assistance of 2 or more helpers is required for the patient to complete the activity. If activity was not attempted, code reason: 7-Patient Refused. 9-Not Applicable-not attempted and the patient did not perform the activity before the current illness, exacerbation or injury. 10-Not Attempted due to Environmental Limitations-(lack of equipment, weather restraints, etc.). 88-Not Attempted due to Medical Conditions or Safety Concerns. Self Care: Independent Functional Cognition: Independent DME/Equipment: Bath Chair, Tub/Shower Drive Self: Yes OT Current Status Subjective Pt denies pain, agreeable to eval. Appearance Pt returned to supine, all needs within reach, family present in room. Mental Status/Objective Patient Orientation: Person, Place, Time, Situation Attachments: Lees Catheter, IV, Oxygen, Telemetry Current Glasses/Contacts: Yes Hand Dominance: Right Upper Extremity ROM WFL Upper Extremity Strength Shoulders: 3+/5 Elbows-distally: WFL ADL-Treatment Lower Body Dressing (QC): 2 On/Off Footwear (QC): 1 Pt supine at OT arrival. RN reports pt just arrived back to floor from surgery ~ 1 hour prior. Pt in agreement to perform as much as tolerable. She was able to sit EOB with SBA. Initially CGA for sitting balance, improves once feet supported on floor. Pt demonstrates poor hip flexibility (figure 4 technique) and is apprehensive to bend forward in order to don/doff socks. Dep with task. She stood with CGA for safety. Limited foot clearance noted when marching in place. At this time, pt would likely require assist with donning LB clothing and CGA-Min a for balance during task such as clothing management. She took 2-3 nj ps toward HOB with CGA, no assistive device. Distance limited by multiple lines/tubes. Mild unsteadiness. Min a to safely lower to bed, poor eccentric control. She was able to return to supine with sba. Vitals WNL with all mobility/activity. Pt on 4L O2, does not wear oxygen at baseline. Education OT Patient Education: Correct positioning, Modified ADL techniques, Progress toward Goal/Update tx plan, Purpose of tx/functional activities, Safety issues, Transfer techniques Teaching Recipient: Patient Teaching Methods: Demonstration, Discussion Response to Teaching: Verbalize Understanding, Return Demonstration OT Enrolled Nurse Goals Enrolled Nurse Goals Time Frame: Mar 31, 2021 Oral Hygiene (QC): 6 Toileting Hygiene (QC): 4 Lower Body Dressing (QC): 4 On/Off Footwear (QC): 4 1=Demonstrate adherence to instructed precautions during ADL tasks. 2=Patient will verbalize/demonstrate understanding of assistive devices/thony fications for ADL. 3=Patient will improve strength/tolerance for activity to enable patient to perform ADL's. OT Education/Plan Problem List/Assessment Assessment: Decreased Activ Tolerance, Decreased Safety Aware, Decreased UE Strength, Impaired Funct Balance, Impaired I ADL's, Impaired Self-Care Skills Discharge Recommendations Plan/Recommendations: Continue POC Target Placement ongoing assessment. Anticipate home vs home with home health pending progress. Treatment Plan/Plan of Care Treatment,Training & Education: Yes Patient would benefit from OT for education, treatment and training to promote independence in ADL's, mobility, safety and/or upper extremity function for ADL's. Plan of Care: ADL Retraining, Functional Mobility, Group Exercise/Act as Ind, UE Funct Exercise/Act Treatment Duration: Mar 31, 2021 Frequency: 5 times per week Estimated Hrs Per Day: .25 hour per day Agreement: Yes Rehab Potential: Good Time/GCodes Start Time: 13:30 Stop Time: 13:44 Total Time Billed (hr/min): 14 Billed Treatment Time 1 visit, Mesha Baker OT Mar 24, 2021 13:51
--- NOTE | 2021-03-24 14:11 | Physical Therapy Evaluation ---
PT Evaluation-General Medical Diagnosis Admission Date Mar 22, 2021 at 14:57 Medical Diagnosis: a-fib with RVR Onset Date: Mar 22, 2021 Therapy Diagnosis Therapy Diagnosis: impaired mobility, strength, endurance Precautions Precautions/Isolations: Standard Precautions Referral Physician: Ivy Pierre DO Reason for Referral: Evaluation/Treatment Medical History Additional Medical History Past Medical History Surgeries: Gallbladder HTN, hypothyroidism, colonscopy performed 30 years ago Reviewed History: Yes Social History Home: [facility] Current Living Status: Alone Entry Into Home: Ramp Prior Prior Level of Function SCALE: Activities may be completed with or without assistive devices. 6-Sqfxejfpze-pyugiqi completes the activity by him/herself with no assistance from a helper. 5-Set-up or Clean-up Assistance-helper sets up or cleans up; patient completes activity. [place] assists only prior to or following the activity. 4-Supervision or Touching Assistance-helper provides verbal cues and/or touching/steadying and/or contact guard assistance as patient completes activity. Assistance may be provided throughout the activity or intermittently. 3-Partial/Moderate Assistance-helper does LESS THAN HALF the effort. [place] lif ts, holds or supports trunk or limbs, but provides less than half the effort. 2-Substantial/Maximal Assistance-helper does MORE THAN HALF the effort. [place] lifts or holds trunk or limbs and provides more than half the effort. 9-Vkcivccqy-wlznuk does ALL the effort. Patient does none of the effort to complete the activity. Or, the assistance of 2 or more helpers is required for the patient to complete the activity. If activity was not attempted, code reason: 7-Patient Refused. 9-Not Applicable-not attempted and the patient did not perform the activity before the current illness, exacerbation or injury. 10-Not Attempted due to Environmental Limitations-(lack of equipment, weather restraints, etc.). 88-Not Attempted due to Medical Conditions or Safety Concerns. Bed Mobility: 6 Transfers (B,C,W/C): 6 Gait: 6 Indoor Mobility (Ambulation): Independent Prior Devices Use: None PT Evaluation-Current Subjective Patient in bed pre tx, agrees to PT, has no complaints of pain. Pt/Family Goals to be independent at home Objective Patient Orientation: Person, Place, Situation Attachments: Oxygen ROM/Strength ROM Lower Extremities WNL Strength Lower Extremities LLE (hip flexion 3+/5, knee flexion 4/5, knee extension 4/5, dorsiflexion 4/5), RLE (hip flexion 3+/5, knee flexion 4/5, knee extension 4/5, dorsiflexion 4/5) Sensory Vision: Wears Glasses Hearing: Functional Sensation Right Lower Extremit: Intact Sensation Left Lower Extremity: Intact Transfers Roll Left to Right (QC): 6 Sit to Lying (QC): 6 Lying to Sitting/Side of Bed(Q: 6 Sit to Stand (QC): 4 Chair/Qwv-mf-Apljl Xfer(QC): 4 CGA for sit to stand and transfers Gait Does the Patient Walk?: Yes Mode of Locomotion: Walk Anticipated Mode of Locomotion: Walk Walk 10 feet (QC): 4 Distance: 20' Gait Assistive Device: None Comments/Gait Description Patient ambulated to the room door and back, she has a limp but had no LOB, CGA, states she was tired after walking this distance Balance Sitting Static: Normal Sitting Dynamic: Normal Standing Static: Fair Standing Dynamic: Fair Treatment BLE supine exercises x20 (AP, HS, QS) Assessment/Needs Patient in bed post tx with nurse call, phone, tray, all needs met. Patient has impaired mobility, strength, endurance. CGA with ambulation without an AD. 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 Associate Media Director Goals [facility] Goals PT [facility] Goals Time Frame: Mar 31, 2021 Roll Left & Right (QC): 6 Sit to Lying (QC): 6 Lying-Sitting on Side/Bed(QC): 6 Sit to Stand (QC): 6 Chair/Nju-pe-Zcrir Xfer(QC): 6 Walk 10 feet (QC): 6 Walk 50ft with 2 Turns (QC): 6 PT Plan Problem List Problem List: Activity Tolerance, Functional Strength, Safety, Balance, Gait, Transfer, Bed Mobility, ROM Treatment/Plan Treatment Plan: Continue Plan of Care Treatment Plan: Bed Mobility, Education, Functional Activity Janeen, Functional Strength, Gait, Safety, Therapeutic Exercise, Transfers Treatment Duration: Mar 31, 2021 Frequency: 6 times per week Estimated Hrs Per Day: .25 hour per day Patient and/or Family Agrees t: Yes Safety Risks/Education Patient Education: Gait Training, Transfer Techniques, Correct Positioning, Safety Issues Teaching Recipient: Patient Teaching Methods: Demonstration, Discussion Response to Teaching: Reinforcement Needed Discharge Recommendations Plan Patient will perform bed mobility and transfer training, balance and endurance training, functional strengthening, stair training, gait training, and education, to improve functional mobility and independence at home. Therapy Discharge Recommendati: Home & Family Time/GCodes Time In: 1350 Time Out: 1401 Total Billed Treatment Time: 11 Total Billed Treatment 1 visit KENIA Naidu' DESTINEE HANKINS PT Mar 24, 2021 14:11
--- NOTE | 2021-03-24 14:15 | Progress Note - Hospitalist ---
WENDYANGELQIANDWAYNE 03/24/21 1415: Subjective HPI/CC On Admission Time Seen by Provider: 07:50 CC: New onset AFIB with RVR with severe anemia symptomatic at 6.4 Hgb HPI: This is a 80yoWF who presented to the ER with palpitations and weakness found to have new onset AFIB with RVR with Hgb of 6.4. She did have some mild hypotension precluding a Cardizem drip bolus but she is on a Cardizem drip. I did notify Dr. Chung and placed all ICU orders. Will monitor Pt closely at this current time in the ICU. Subjective/Events-last exam She is currently on N/C with 5L/min and she reports less edema of her legs B/L. Her SOB on exertion is better and is on clear liquid diet for a possible endoscopy due to her dropping hemoglobin that is currently at 7.3. Objective Exam Vital Signs Vital Signs Date Time Temp Pulse Resp B/P (MAP) Pulse Ox O2 Delivery O2 Flow Rate FiO2 03/24/21 13:00 75 21 121/83 94 Nasal Cannula 3.00 03/24/21 12:58 36.4 Capillary Refill : General Appearance: Chronically ill Respiratory: No No Accessory Muscle Use, No No Respiratory Distress; Decreased Breath Sounds Extremity: Pedal Edema Neurologic/Psychiatric: Alert, Oriented x3 Results/Procedures Lab Laboratory Tests 03/24/21 04:05 Patient resulted labs reviewed. Assessment/Plan Assessment and Plan Assess & Plan/Chief Complaint Assessment: A fib with RVR Anemia at 7.3 GI bleed possible Colon cancer Plan: Consult cardiology and General Surgery Pure liquid diet EGD IVY GARCIA DO 03/25/21 0642: Supervisory-Addendum Brief Verification & Attestation Participated in pt care: history, MDM, physical Personally performed: exam, history, MDM, supervision of care Care discussed with: Medical Student Procedures: n/a Results interpretation: Verified all documentation Verification and Attestation of Medical Student E/M Service A medical student performed and documented this service in my presence. I reviewed and verified all information documented by the medical student and made modifications to such information, when appropriate. I personally performed the physical exam and medical decision making. Ivy Garcia Mar 25, 2021,06:42 ROMMEL TORRES Mar 24, 2021 14:15 IVY GARCIA DO Mar 25, 2021 06:42
--- NOTE | 2021-03-24 15:53 | Cardiology Progress Note ---
Progress Note-Cardiology Events since last exam Date Seen by Provider: Mar 24, 2021 Time Seen by Provider: 15:47 Events since last exam I am following her for atrial fibrillation. She underwent endoscopy earlier today. She is now awake and alert. Her daughter is at the bedside. The endoscopy report is still pending. The nurse was not aware of the findings. The patient denies chest discomfort, dyspnea at rest, palpitations, syncope, or change in her very mild ankle edema which is chronic. Last night I was called about recurrent tachycardia. I gave her short acting dose of diltiazem orally. She still had tachycardia and was placed back on the IV diltiazem infusion. Earlier today, the IV diltiazem was weaned off. Certain portions of this document may have been dictated utilizing voice recognition technology. Inherent to this technology, typographical and grammatical errors may exist. As much as I am diligent to identify and correct these mistakes, some errors may remain in the document. Vitals Last set of Vitals Signs Vital Signs 03/24/21 03/24/21 12:58 15:00 Temp 36.4 Pulse 80 Resp 15 B/P (MAP) 116/77 Pulse Ox 94 O2 Delivery Nasal Cannula O2 Flow Rate 3.00 Labs Labs Laboratory Tests 03/24/21 04:05 Exam Vital Signs Vital Signs Date Time Temp Pulse Resp B/P (MAP) Pulse Ox O2 Delivery O2 Flow Rate FiO2 03/24/21 15:00 80 15 116/77 94 Nasal Cannula 3.00 03/24/21 12:58 36.4 Physical Exam General: Alert. No acute distress. She is obese. Eye: No xanthelasma. HENT: Normocephalic. Neck: Jugular venous pressure does not appear elevated. Respiratory: Lungs are clear to auscultation. Respirations are non-labored. Breath sounds are equal. Symmetrical chest wall expansion. Cardiovascular: Normal rate. Irregular rhythm. No murmur. No gallop. Trace bilateral pretibial edema. Gastrointestinal: Soft. Normal bowel sounds. Skin: Warm. Dry. Neurologic: Alert and oriented to person, place, time. Cranial nerves 3-11 grossly intact. Psychiatric: Cooperative. Appropriate mood & affect. Labs Laboratory Tests Test 03/24/21 04:05 03/24/21 08:40 Range/Units White Blood Count 12.7 H 4.3-11.0 10^3/uL Red Blood Count 3.56 L 3.80-5.11 10^6/uL Hemoglobin 7.3 L 11.5-16.0 g/dL Hematocrit 26 L 35-52 % Mean Corpuscular Volume 74 L 80-99 fL Mean Corpuscular Hemoglobin 21 L 25-34 pg Mean Corpuscular Hemoglobin Concent 28 L 32-36 g/dL Red Cell Distribution Width 19.7 H 10.0-14.5 % Platelet Count 355 130-400 10^3/uL Mean Platelet Volume 10.3 9.0-12.2 fL Immature Granulocyte % (Auto) 0 % Neutrophils (%) (Auto) 76 H 42-75 % Lymphocytes (%) (Auto) 12 12-44 % Monocytes (%) (Auto) 9 0-12 % Eosinophils (%) (Auto) 3 0-10 % Basophils (%) (Auto) 0 0-10 % Neutrophils # (Auto) 9.6 H 1.8-7.8 10^3/uL Lymphocytes # (Auto) 1.5 1.0-4.0 10^3/uL Monocytes # (Auto) 1.1 H 0.0-1.0 10^3/uL Eosinophils # (Auto) 0.4 H 0.0-0.3 10^3/uL Basophils # (Auto) 0.0 0.0-0.1 10^3/uL Immature Granulocyte # (Auto) 0.1 0.0-0.1 10^3/uL Neutrophils % (Manual) 77 % Lymphocytes % (Manual) 10 % Monocytes % (Manual) 8 % Eosinophils % (Manual) 4 % Band Neutrophils 1 % Toxic Granulation 1+ Hypochromasia MARKED Target Cells SLIGHT Gipsy Cells SLIGHT Crenated Cell SLIGHT Elliptocytes SLIGHT Sodium Level 138 135-145 MMOL/L Potassium Level 2.8 L 3.6-5.0 MMOL/L Chloride Level 106 98-107 MMOL/L Carbon Dioxide Level 22 21-32 MMOL/L Anion Gap 10 5-14 MMOL/L Blood Urea Nitrogen 5 L 7-18 MG/DL Creatinine 0.83 0.60-1.30 MG/DL Estimat Glomerular Filtration Rate 66 BUN/Creatinine Ratio 6 Glucose Level 83 70-105 MG/DL Calcium Level 8.3 L 8.5-10.1 MG/DL Phosphorus Level 3.0 2.3-4.7 MG/DL Magnesium Level 1.7 1.6-2.4 MG/DL SARS-CoV-2 RNA (RT-PCR) Not Detected Not Detecte Diagnosis/Problems Diagnosis/Problems (1) Unspecified atrial fibrillation Assessment & Plan: She has atrial fibrillation of unknown duration. She seems to be asymptomatic with this. Her left atrium is only mildly dilated by echocardiogram which suggests that the atrial fibrillation may be something recent. Unclear whether or not this may have been brought on by the severe anemia or this just happens to be a coincidence. I have started her on oral beta-rupal and increased the dose on 03/25. Her heart rates are better today. We will need to hold off on starting anticoagulation until given the okay by general surgery to start oral anticoagulation. Furthermore, her hemoglobin was slightly worse today so I would hold off for at least another 24 hours before starting oral anticoagulation. I would prefer to start her on rivaroxaban since she can get this at a reduced cost through the hospital. I would recommend a minimum of 30 days of oral anticoagulation followed by cardioversion. She will need to arrange this through her regular tobacco warehouse agent in [place]. From a cardiac standpoint, she can be transferred out to the stepdown unit on telemetry. (2) Anemia Assessment & Plan: Etiology unclear. She has not had any blood in her stool or urine. General surgery is following did not endoscopy earlier today. Results pending. (3) Primary hypertension Assessment & Plan: Her blood pressures have improved with metoprolol. I did not resume her home dose of amlodipine so that we can use higher doses of metoprolol if needed for rate control for the atrial fibrillation. (4) Pulmonary hypertension Assessment & Plan: By her report, she has pulmonary hypertension. She follows with a tobacco warehouse agent at [facility] in [place], [place] for management of this condition. The echocardiogram from the outside hospital prior to admission here only shows mild pulmonary hypertension. This can be followed by her regular tobacco warehouse agent at the outside facility after discharge. (5) Aortic regurgitation Assessment & Plan: Her echocardiogram from the outside hospital showed mild aortic regurgitation. This should not be contributing to the current situation but will need to be followed longitudinally after discharge. (6) Obesity Assessment & Plan: She needs to work on weight loss. There is stated that 20 pounds of weight loss will help reduce the risk of recurrent atrial fibrillation. PRAVEEN ALONZO JR, MD Mar 24, 2021 15:52
[2021-03-24] MEDS: SUCRALFATE 1 GM (CARAFATE) TAB PO SCH ×2 (17:15→20:26)
--- NOTE | 2021-03-25 02:33 | OPERATIVE REPORT ---
DATE OF SERVICE: 03/24/2021 PREOPERATIVE DIAGNOSES: Anemia, atrial fibrillation with rapid ventricular response. POSTOPERATIVE DIAGNOSES: Hiatal hernia, gastroesophageal ulcer, pandiverticulosis, colon polyps of the descending, sigmoid and rectum. PROCEDURE: EGD and colonoscopy with hot biopsy polypectomy x1 and snare polypectomy x2. SURGEON: Josh Cardenas DO ANESTHESIA: Per ELECTION JUDGE. ESTIMATED BLOOD LOSS: Scant. COMPLICATIONS: None. INDICATIONS: The patient is a 80-year-old female with AFib with RVR. She was transferred and found to be anemic. She understands risks and benefits of procedures for further evaluation. She understands and wishes to proceed. Consent was signed in the chart. DESCRIPTION OF PROCEDURE: The patient was placed in left lateral recumbent position. Timeout was performed. Digital rectal exam was performed. There were no palpable polyps, masses or ulcerations. Scope was inserted in the rectum, advanced all the way to cecum with minimal difficulty. Prep was adequate. Scope was then slowly retracted back. No polyps, masses or ulcerations in the cecum. In the ascending colon, small polyp was present, which hot biopsy polypectomy was performed. Scope was then continuously slowly retracted back. No polyps, masses or ulcerations within the remainder of the ascending, transverse and descending colon. In the sigmoid colon, larger polyp was present, which appeared to be inflamed as well. Snare polypectomy was performed. This was able to be suctioned for specimen. Scope was then continuously slowly retracted back where another larger polyp was present in the proximal rectum, which a snare polypectomy was performed. This was able to be suctioned. So, scope was then slowly retracted back and obtained. Scope was reinserted and the rectum was further evaluated. Scope was retroflexed noting no other pathology. The patient was noted to have diverticulosis throughout the majority of the colon as well all the way into the ascending colon. Scope was then slowly retracted back until completely removed. The patient tolerated procedure well without any complications. RECOMMENDATIONS: The patient on Protonix and Carafate. Follow hemoglobin. Await biopsy results. The patient will not need a repeat colonoscopy unless clinically indicated. CC: Dr. Delgadillo - requested, unable to deliver. Job ID: [id number] DocumentID: [id number] Dictated Date: 03/24/2021 16:42:16 Supervisor Tree Trimming Date: 03/25/2021 02:33:10 Dictated By: JOSH CARDENAS DO
[2021-03-25] MEDS: LEVOTHYROXINE 100 MCG (LEVOTHROID) TAB PO SCH (05:45)
[2021-03-25] MEDS: SUCRALFATE 1 GM (CARAFATE) TAB PO SCH ×4 (05:45→20:22)
--- NOTE | 2021-03-25 07:53 | Progress Note - Hospitalist ---
Subjective HPI/CC On Admission Date Seen by Provider: Mar 25, 2021 Time Seen by Provider: 11:00 CC: New onset AFIB with RVR with severe anemia symptomatic at 6.4 Hgb HPI: This is a 80yoWF who presented to the ER with palpitations and weakness found to have new onset AFIB with RVR with Hgb of 6.4. She did have some mild hypotension precluding a Cardizem drip bolus but she is on a Cardizem drip. I did notify Dr. Chung and placed all ICU orders. Will monitor Pt closely at this current time in the ICU. Subjective/Events-last exam Patient feels much better Dr. SIMONE gamboa with starting oral anticoagulation Peptic ulcer disease diet started Dr. Chung will increase metoprolol Potassium 20 mEq twice daily will be started Review of Systems General: Fatigue, Malaise Objective Exam Vital Signs Vital Signs Date Time Temp Pulse Resp B/P (MAP) Pulse Ox O2 Delivery O2 Flow Rate FiO2 03/25/21 13:00 96 03/25/21 12:00 Nasal Cannula 3.00 03/25/21 12:00 20 130/94 96 03/25/21 11:29 37.0 Capillary Refill : Less Than 3 Seconds General Appearance: No Apparent Distress, WD/WN, Chronically ill Respiratory: Lungs Clear, Normal Breath Sounds Cardiovascular: Irregularly Irregular Neurologic/Psychiatric: Alert, Oriented x3 Results/Procedures Lab Laboratory Tests 03/25/21 08:00 Patient resulted labs reviewed. Assessment/Plan Assessment and Plan Assess & Plan/Chief Complaint Assessment: New onset atrial fibrillation with rapid ventricular response Severe symptomatic anemia Suspected GI bleed endoscopy scheduled for tomorrow Mild hypotension Plan: Appreciate cardiology Endoscopies tomorrow Monitor closely 03/24/2021: Supportive care Transfer to fourth floor PT and OT 03/25/2021: Supportive care Monitor closely Transfer to fourth floor Critical Care Critically Ill Patient Diagnosis/Problems Diagnosis/Problems (1) Atrial fibrillation with RVR (2) Anemia MALGORZATA GARCIA DO Mar 25, 2021 07:53
[2021-03-25 08:05] LABS: BASOPHILS % (AUTO) 0 % (0-10); EOSINOPHILS # (AUTO) 0.3 10^3/uL (0.0-0.3); EOSINOPHILS % (AUTO) 2 % (0-10); HEMATOCRIT 29 % (35-52); HEMOGLOBIN 8.1 g/dL (11.5-16.0); LYMPHOCYTES # (AUTO) 1.3 10^3/uL (1.0-4.0); LYMPHOCYTES % (AUTO) 10 % (12-44); MEAN CORPUSCULAR HEMOGLOBIN 21 pg (25-34); MEAN CORPUSCULAR HGB CONC 28 g/dL (32-36); MEAN CORPUSCULAR VOLUME 74 fL (80-99); MEAN PLATELET VOLUME 10.3 fL (9.0-12.2); MONOCYTES # (AUTO) 0.9 10^3/uL (0.0-1.0); MONOCYTES % (AUTO) 7 % (0-12); NEUTROPHILS # (AUTO) 10.4 10^3/uL (1.8-7.8); NEUTROPHILS % (AUTO) 80 % (42-75); PLATELET COUNT 390 10^3/uL (130-400)
[2021-03-25 08:17] LABS: ALBUMIN 3.3 GM/DL (3.2-4.5)
[2021-03-25 08:18] LABS: POTASSIUM 3.3 MMOL/L (3.6-5.0)
[2021-03-25 08:19] LABS: CALCIUM 8.4 MG/DL (8.5-10.1)
[2021-03-25 08:20] LABS: TOTAL PROTEIN 5.8 GM/DL (6.4-8.2)
[2021-03-25 08:22] LABS: BILIRUBIN,TOTAL 0.7 MG/DL (0.1-1.0)
[2021-03-25 08:24] LABS: CREATININE SERUM 0.8 MG/DL (0.60-1.30)
[2021-03-25] MEDS: PANTOPRAZOLE 40 MG (PROTONIX) TAB PO SCH (08:43)
[2021-03-25] MEDS: meTOproloL SUCCINATE 50 MG (TOPROL XL) TAB PO SCH ×2 (08:43→20:22)
[2021-03-25 08:47] LABS: NEUTROPHILS % (MANUAL) 87 %
[2021-03-25 08:48] LABS: ANISOCYTOSIS MARKED; BAND NEUTROPHILS 0 %; BASOPHILS % (MANUAL) 0 %; EOSINOPHILS % (MANUAL) 2 %; HYPOCHROMASIA MODERATE; LYMPHOCYTES % (MANUAL) 5 %; MICROCYTOSIS SLIGHT; MONOCYTES % (MANUAL) 6 %; POLYCHROMASIA MODERATE
--- NOTE | 2021-03-25 09:43 | Physical Therapy Daily Note ---
PT Daily Note-Current Subjective Pt in bed, agreeable. Denies pain. Pain Numeric Pain Scale: 0-No Pain Location: No Pain Reported Mental Status Patient Orientation: Person, Place, Time, Situation Attachments: Oxygen multiple lines Transfers SCALE: Activities may be completed with or without assistive devices. 5-Iofcmrafow-lrskppf completes the activity by him/herself with no assistance from a helper. 5-Set-up or Clean-up Assistance-helper sets up or cleans up; patient completes activity. [place] assists only prior to or following the activity. 4-Supervision or Touching Assistance-helper provides verbal cues and/or touching/steadying and/or contact guard assistance as patient completes a ctivity. Assistance may be provided throughout the activity or intermittently. 3-Partial/Moderate Assistance-helper does LESS THAN HALF the effort. [place] lifts, holds or supports trunk or limbs, but provides less than half the effort. 2-Substantial/Maximal Assistance-helper does MORE THAN HALF the effort. [place] lifts or holds trunk or limbs and provides more than half the effort. 2-Idtbfnnzu-hjswmi does ALL the effort. Patient does none of the effort to complete the activity. Or, the assistance of 2 or more helpers is required for the patient to complete the activity. If activity was not attempted, code reason: 7-Patient Refused. 9-Not Applicable-not attempted and the patient did not perform the activity before the current illness, exacerbation or injury. 10-Not Attempted due to Environmental Limitations-(lack of equipment, weather restraints, etc.). 88-Not Attempted due to Medical Conditions or Safety Concerns. Lying to Sitting/Side of Bed(Q: 5 Sit to Stand (QC): 4 Weight Bearing Right Lower Extremity: Right Full Weight Bearing Left Lower Extremity: Left Full Weight Bearing Gait Training Does the Patient Walk?: Yes Distance: 15 Walk 10 feet (QC): 4 Gait Assistive Device: None Pt ambulated around bed to chair. Min A x 1 for balance, Pt reaching to steady herself on bed during gait. Unsteady at times. Wheelchair Training Does the Pt Use a Wheelchair?: No Type of Wheelchair: N/A Treatments Transfer/gait to chair. Pt up in chair with all needs met, nursing notified of position and level of assist. O2 in situ. Assessment Current Status: Fair Progress Pt tolerated well. Unsteady with (I) gait, reaching to steady herself on bed. May benefit from least restrictive AD at this time until weakness, activity tolerance improves. 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 Goals [facility] Goals 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 Goals Time Frame: Mar 31, 2021 Roll Left & Right (QC): 6 Sit to Lying (QC): 6 Lying-Sitting on Side/Bed(QC): 6 Sit to Stand (QC): 6 Chair/Lbk-qz-Ijfod Xfer(QC): 6 Walk 10 feet (QC): 6 Walk 50ft with 2 Turns (QC): 6 PT Plan Problem List Problem List: Activity Tolerance, Functional Strength, Safety, Balance, Gait, Transfer, Bed Mobility Treatment/Plan Treatment Plan: Continue Plan of Care Treatment Plan: Bed Mobility, Education, Functional Activity Janeen, Functional Strength, Gait, Safety, Therapeutic Exercise, Transfers Treatment Duration: Mar 31, 2021 Frequency: 6 times per week Estimated Hrs Per Day: .25 hour per day Patient and/or Family Agrees t: Yes Time/GCodes Time In: 0849 Time Out: 0859 Total Billed Treatment Time: 10 Total Billed Treatment 1, FA x 10' GARDENIA MACIAS DPLuis Mar 25, 2021 09:43
--- NOTE | 2021-03-25 11:13 | Cardiology Progress Note ---
Progress Note-Cardiology Events since last exam Date Seen by Provider: Mar 25, 2021 Time Seen by Provider: 11:07 Events since last exam I am following her due to atrial fibrillation and hypertension in the setting of probable acute gastrointestinal hemorrhage. Her endoscopy on 03/24 showed a nonbleeding ulcer at the GE junction. No other source of gastrointestinal hemorrhage was identified. The surgeon managing today has given the go ahead for her to start oral anticoagulation. She denies chest pain, dyspnea, palpitations, or syncope. Her chronic lower extremity edema has improved with all her bedrest. Certain portions of this document may have been dictated utilizing voice recognition technology. Inherent to this technology, typographical and grammatical errors may exist. As much as I am diligent to identify and correct these mistakes, some errors may remain in the document. Vitals Last set of Vitals Signs Vital Signs 03/25/21 03/25/21 08:02 10:00 Temp 37.0 Pulse 92 Resp 18 B/P (MAP) 117/80 Pulse Ox 97 O2 Delivery Nasal Cannula O2 Flow Rate 3.00 Labs Labs Laboratory Tests 03/25/21 08:00 Exam Vital Signs Vital Signs Date Time Temp Pulse Resp B/P (MAP) Pulse Ox O2 Delivery O2 Flow Rate FiO2 03/25/21 10:00 92 18 117/80 97 Nasal Cannula 3.00 03/25/21 08:02 37.0 Physical Exam General: Alert. No acute distress. She is obese. Eye: No xanthelasma. HENT: Normocephalic. Neck: Jugular venous pressure does not appear elevated. Respiratory: Lungs are clear to auscultation but diffusely decreased breath sounds in all lung ugarte, unchanged from admission. Respirations are non- labored. Breath sounds are equal. Symmetrical chest wall expansion. Cardiovascular: Normal rate. Irregular rhythm. No murmur. No gallop. Trace bilateral pretibial edema. Gastrointestinal: Soft. Normal bowel sounds. Skin: Warm. Dry. Neurologic: Alert and oriented to person, place, time. Cranial nerves 3-11 grossly intact. Psychiatric: Cooperative. Appropriate mood & affect. Labs Laboratory Tests Test 03/25/21 08:00 Range/Units White Blood Count 13.0 H 4.3-11.0 10^3/uL Red Blood Count 3.95 3.80-5.11 10^6/uL Hemoglobin 8.1 L 11.5-16.0 g/dL Hematocrit 29 L 35-52 % Mean Corpuscular Volume 74 L 80-99 fL Mean Corpuscular Hemoglobin 21 L 25-34 pg Mean Corpuscular Hemoglobin Concent 28 L 32-36 g/dL Red Cell Distribution Width 20.6 H 10.0-14.5 % Platelet Count 390 130-400 10^3/uL Mean Platelet Volume 10.3 9.0-12.2 fL Immature Granulocyte % (Auto) 1 % Neutrophils (%) (Auto) 80 H 42-75 % Lymphocytes (%) (Auto) 10 L 12-44 % Monocytes (%) (Auto) 7 0-12 % Eosinophils (%) (Auto) 2 0-10 % Basophils (%) (Auto) 0 0-10 % Neutrophils # (Auto) 10.4 H 1.8-7.8 10^3/uL Lymphocytes # (Auto) 1.3 1.0-4.0 10^3/uL Monocytes # (Auto) 0.9 0.0-1.0 10^3/uL Eosinophils # (Auto) 0.3 0.0-0.3 10^3/uL Basophils # (Auto) 0.0 0.0-0.1 10^3/uL Immature Granulocyte # (Auto) 0.1 0.0-0.1 10^3/uL Neutrophils % (Manual) 87 % Lymphocytes % (Manual) 5 % Monocytes % (Manual) 6 % Eosinophils % (Manual) 2 % Basophils % (Manual) 0 % Band Neutrophils 0 % Polychromasia MODERATE Hypochromasia MODERATE Anisocytosis MARKED Microcytosis SLIGHT Sodium Level 139 135-145 MMOL/L Potassium Level 3.3 L 3.6-5.0 MMOL/L Chloride Level 106 98-107 MMOL/L Carbon Dioxide Level 22 21-32 MMOL/L Anion Gap 11 5-14 MMOL/L Blood Urea Nitrogen 6 L 7-18 MG/DL Creatinine 0.80 0.60-1.30 MG/DL Estimat Glomerular Filtration Rate 69 BUN/Creatinine Ratio 8 Glucose Level 78 70-105 MG/DL Calcium Level 8.4 L 8.5-10.1 MG/DL Corrected Calcium 9.0 8.5-10.1 MG/DL Total Bilirubin 0.7 0.1-1.0 MG/DL Aspartate Amino Transf (AST/SGOT) 13 5-34 U/L Alanine Aminotransferase (ALT/SGPT) 9 0-55 U/L Alkaline Phosphatase 57 40-136 U/L Total Protein 5.8 L 6.4-8.2 GM/DL Albumin 3.3 3.2-4.5 GM/DL Diagnosis/Problems Diagnosis/Problems (1) Persistent atrial fibrillation Assessment & Plan: She has atrial fibrillation of unknown duration. At this point, it will essentially become persistent atrial fibrillation. She seems to be asymptomatic with this. Her left atrium is only mildly dilated by echocardiogram which suggests that the atrial fibrillation may be something recent. Unclear whether or not this may have been brought on by the severe anemia or this just happens to be a coincidence. I have started her on oral beta-rupal and increased the dose on 03/25. She still has a tendency to run heart rates in the high 90s. I will change the metoprolol succinate to 50 mg twice daily. I am doing this to help avoid iatrogenic hypotension by giving her 100 mg all at once in the morning. I will start her on rivaroxaban today. I prefer rivaroxaban over apixaban or other agents since she can get the rivaroxaban at a markedly reduced cost through a special hospital program. I would recommend a minimum of 30 days of oral anticoagulation followed by cardiov ersion. Since her heart rate is well controlled and she is asymptomatic, there is no urgent need to perform transesophageal echocardiogram and cardioversion during this admission. She will need to arrange the cardioversion through her regular dip tanker in [place]. If she would prefer to follow with me, I could also arrange for cardioversion here in about 30 days. She has transfer orders to move to medical telemetry unit. (2) Anemia Assessment & Plan: Etiology unclear but possibly related to the ulcer at the GE junction although this was not bleeding at the time of the upper endoscopy. The surgeon has now given the go ahead to start oral anticoagulation. (3) Primary hypertension Assessment & Plan: Her blood pressures are controlled with metoprolol. I did not resume her home dose of amlodipine so that we can use higher doses of metoprolol if needed for rate control for the atrial fibrillation. As above, I will increase the total daily dose of metoprolol succinate but I will split this into twice daily dosing to help avoid iatrogenic hypotension. (4) Pulmonary hypertension Assessment & Plan: By her report, she has pulmonary hypertension. She follows with a dip tanker at [facility] in [place], [place] for management of this condition. The echocardiogram from the outside hospital prior to admission here only shows mild pulmonary hypertension. This can be followed by her regular dip tanker at the outside facility after discharge. (5) Aortic regurgitation Assessment & Plan: Her echocardiogram from [facility] just prior to her being transferred here showed mild aortic regurgitation. This should not be contributing to the current situation but will need to be followed longitudinally after discharge. (6) Obesity Assessment & Plan: She needs to work on weight loss. There is stated that 20 pounds of weight loss will help reduce the risk of recurrent atrial fibrillation. PRAVEEN ALONZO JR, MD Mar 25, 2021 11:13
--- NOTE | 2021-03-25 11:22 | Progress Note ---
Subjective Date Seen by a Provider: Mar 25, 2021 Time Seen by a Provider: 10:00 Subjective/Events-last exam doing well. no complaints. HR controlled. Hb stable. no signs clinical bleed. Objective Exam Vital Signs Date Time Temp Pulse Resp B/P (MAP) Pulse Ox O2 Delivery O2 Flow Rate FiO2 03/25/21 10:00 92 18 117/80 97 Nasal Cannula 3.00 03/25/21 09:00 93 15 123/89 91 Nasal Cannula 3.00 03/25/21 08:02 37.0 03/25/21 08:00 Nasal Cannula 3.00 03/25/21 07:00 108 03/25/21 07:00 97 15 119/86 95 Nasal Cannula 3.00 03/25/21 06:00 93 16 128/68 91 Nasal Cannula 3.00 03/25/21 05:00 90 13 111/78 92 Nasal Cannula 3.00 03/25/21 04:00 Nasal Cannula 3.00 03/25/21 04:00 93 16 105/71 95 Nasal Cannula 3.00 03/25/21 04:00 36.0 98 18 111/78 92 Nasal Cannula 3.00 03/25/21 03:00 98 16 112/76 94 Nasal Cannula 3.00 03/25/21 02:00 101 21 122/95 93 Nasal Cannula 3.00 03/25/21 01:00 96 20 116/89 93 Nasal Cannula 3.00 03/25/21 01:00 96 03/25/21 00:00 36.0 77 20 110/78 95 Nasal Cannula 3.00 03/25/21 00:00 80 14 120/74 95 Nasal Cannula 3.00 03/25/21 00:00 36.1 Nasal Cannula 3.00 03/24/21 23:41 Nasal Cannula 3.00 03/24/21 23:00 88 18 115/79 93 Nasal Cannula 3.00 03/24/21 22:00 83 17 108/74 95 Nasal Cannula 3.00 03/24/21 21:52 98 Nasal Cannula 2.00 03/24/21 21:00 79 12 104/77 99 Nasal Cannula 3.00 03/24/21 20:00 Nasal Cannula 3.00 03/24/21 20:00 94 13 104/72 97 Nasal Cannula 3.00 03/24/21 20:00 36.0 03/24/21 19:00 98 03/24/21 19:00 98 14 117/76 97 Nasal Cannula 3.00 03/24/21 18:00 98 22 121/77 95 Nasal Cannula 3.00 03/24/21 17:00 91 16 130/70 95 Nasal Cannula 3.00 03/24/21 16:00 106 19 131/97 93 Nasal Cannula 3.00 03/24/21 16:00 Nasal Cannula 3.00 03/24/21 16:00 36.8 03/24/21 15:00 80 15 116/77 94 Nasal Cannula 3.00 03/24/21 14:00 85 15 118/83 91 Nasal Cannula 3.00 03/24/21 13:00 75 21 121/83 94 Nasal Cannula 3.00 03/24/21 12:58 36.4 03/24/21 12:51 78 03/24/21 12:02 37.0 OxyMask 10.00 03/24/21 12:00 Nasal Cannula 3.00 03/24/21 12:00 78 15 107/68 95 OxyMask 10.00 I & O 03/25/21 07:00 Intake Total 1050 ml Output Total 730 ml Balance 320 ml Capillary Refill : Less Than 3 Seconds General Appearance: No Apparent Distress HEENT: PERRL/EOMI Neck: Full Range of Motion Respiratory: Chest Non Tender, Lungs Clear, Normal Breath Sounds Cardiovascular: Regular Rate, Rhythm Gastrointestinal: normal bowel sounds, non tender, soft Extremity: Normal Capillary Refill Neurologic/Psychiatric: Alert, Oriented x3 Skin: Normal Color Lymphatic: No Adenopathy Results Lab Laboratory Tests 03/25/21 08:00: White Blood Count 13.0H, Red Blood Count 3.95, Hemoglobin 8.1L, Hematocrit 29L, Mean Corpuscular Volume 74L, Mean Corpuscular Hemoglobin 21L, Mean Corpuscular Hemoglobin Concent 28L, Red Cell Distribution Width 20.6H, Platelet Count 390, Mean Platelet Volume 10.3, Immature Granulocyte % (Auto) 1, Neutrophils (%) (Auto) 80H, Lymphocytes (%) (Auto) 10L, Monocytes (%) (Auto) 7, Eosinophils (%) (Auto) 2, Basophils (%) (Auto) 0, Neutrophils # (Auto) 10.4H, Lymphocytes # (Auto) 1.3, Monocytes # (Auto) 0.9, Eosinophils # (Auto) 0.3, Basophils # (Auto) 0.0, Immature Granulocyte # (Auto) 0.1, Neutrophils % (Manual) 87, Lymphocytes % (Manual) 5, Monocytes % (Manual) 6, Eosinophils % (Manual) 2, Basophils % (Manual) 0, Band Neutrophils 0, Polychromasia MODERATE, Hypochromasia MODERATE, Anisocytosis MARKED, Microcytosis SLIGHT, Sodium Level 139, Potassium Level 3.3L , Chloride Level 106, Carbon Dioxide Level 22, Anion Gap 11, Blood Urea Nitrogen 6L, Creatinine 0.80, Estimat Glomerular Filtration Rate 69, BUN/Creatinine Ratio 8, Glucose Level 78, Calcium Level 8.4L, Corrected Calcium 9.0, Total Bilirubin 0.7, Aspartate Amino Transf (AST/SGOT) 13, Alanine Aminotransferase (ALT/SGPT) 9, Alkaline Phosphatase 57, Total Protein 5.8L, Albumin 3.3 Microbiology 03/22/21 MRSA Screen - Final, Complete MRSA not isolated Assessment/Plan Assessment/Plan Assess & Plan/Chief Complaint a-fib with rvr with anemia and jae ulcer not actively bleeding. advance PUD diet. ok for anticoag per cardiology. TAMMY NICHOLS MD Mar 25, 2021 11:22
[2021-03-25] MEDS: KCL 20 MEQ TAB (K-DUR) PO SCH ×2 (13:29→20:22)
[2021-03-25] MEDS: RIVAROXABAN 20 MG TABLET (XARELTO) PO SCH (16:21)
[2021-03-26 04:51] LABS: BASOPHILS # (AUTO) 0.1 10^3/uL (0.0-0.1); BASOPHILS % (AUTO) 1 % (0-10); EOSINOPHILS # (AUTO) 0.3 10^3/uL (0.0-0.3); EOSINOPHILS % (AUTO) 2 % (0-10); HEMATOCRIT 29 % (35-52); HEMOGLOBIN 8.1 g/dL (11.5-16.0); LYMPHOCYTES # (AUTO) 1.6 10^3/uL (1.0-4.0); LYMPHOCYTES % (AUTO) 12 % (12-44); MEAN CORPUSCULAR HEMOGLOBIN 21 pg (25-34); MEAN CORPUSCULAR HGB CONC 28 g/dL (32-36); MEAN CORPUSCULAR VOLUME 75 fL (80-99); MEAN PLATELET VOLUME 10.8 fL (9.0-12.2); MONOCYTES % (AUTO) 7 % (0-12); NEUTROPHILS # (AUTO) 10.1 10^3/uL (1.8-7.8); NEUTROPHILS % (AUTO) 77 % (42-75); PLATELET COUNT 389 10^3/uL (130-400); WHITE BLOOD COUNT 13.1 10^3/uL (4.3-11.0)
[2021-03-26 05:06] LABS: ALBUMIN 3.1 GM/DL (3.2-4.5); POTASSIUM 3.6 MMOL/L (3.6-5.0)
[2021-03-26 05:07] LABS: CALCIUM 8.6 MG/DL (8.5-10.1)
[2021-03-26 05:08] LABS: TOTAL PROTEIN 5.4 GM/DL (6.4-8.2)
[2021-03-26 05:10] LABS: BILIRUBIN,TOTAL 0.6 MG/DL (0.1-1.0)
[2021-03-26 05:12] LABS: CREATININE SERUM 0.84 MG/DL (0.60-1.30)
[2021-03-26] MEDS: SUCRALFATE 1 GM (CARAFATE) TAB PO SCH ×4 (06:21→20:55)
[2021-03-26] MEDS: LEVOTHYROXINE 100 MCG (LEVOTHROID) TAB PO SCH (06:21)
--- NOTE | 2021-03-26 06:43 | Progress Note - Hospitalist ---
Subjective HPI/CC On Admission Date Seen by Provider: Mar 26, 2021 Time Seen by Provider: 11:00 CC: New onset AFIB with RVR with severe anemia symptomatic at 6.4 Hgb HPI: This is a 80yoWF who presented to the ER with palpitations and weakness found to have new onset AFIB with RVR with Hgb of 6.4. She did have some mild hypotension precluding a Cardizem drip bolus but she is on a Cardizem drip. I did notify Dr. Chung and placed all ICU orders. Will monitor Pt closely at this current time in the ICU. Subjective/Events-last exam Patient feeling much better Moving to fourth floor Iron infusion started Eating and drinking well Review of Systems General: Fatigue, Malaise Pulmonary: Dyspnea Objective Exam Vital Signs Vital Signs Date Time Temp Pulse Resp B/P (MAP) Pulse Ox O2 Delivery O2 Flow Rate FiO2 03/26/21 19:30 37.4 107 18 129/92 97 Nasal Cannula 2.00 Capillary Refill : Less Than 3 Seconds General Appearance: No Apparent Distress, WD/WN, Chronically ill Respiratory: Lungs Clear, Normal Breath Sounds Cardiovascular: Irregularly Irregular Neurologic/Psychiatric: Alert, Oriented x3 Results/Procedures Lab Laboratory Tests 03/26/21 04:20 Patient resulted labs reviewed. Assessment/Plan Assessment and Plan Assess & Plan/Chief Complaint Assessment: New onset atrial fibrillation with rapid ventricular response Severe symptomatic anemia Suspected GI bleed endoscopy scheduled for tomorrow Mild hypotension Plan: Appreciate cardiology Endoscopies tomorrow Monitor closely 03/24/2021: Supportive care Transfer to fourth floor PT and OT 03/25/2021: Supportive care Monitor closely Transfer to fourth floor 03/26/2021: Supportive care Transfer to fourth floor PT and OT Critical Care Critically Ill Patient Diagnosis/Problems Diagnosis/Problems (1) Atrial fibrillation with RVR (2) Anemia MALGORZATA GARCIA DO Mar 26, 2021 06:43
[2021-03-26] MEDS: PANTOPRAZOLE 40 MG (PROTONIX) TAB PO SCH (08:06)
[2021-03-26] MEDS: meTOproloL SUCCINATE 50 MG (TOPROL XL) TAB PO SCH ×2 (08:06→20:55)
[2021-03-26] MEDS: KCL 20 MEQ TAB (K-DUR) PO SCH ×2 (08:07→20:55)
--- NOTE | 2021-03-26 10:40 | Progress Note ---
Subjective Date Seen by a Provider: Mar 26, 2021 Time Seen by a Provider: 09:00 Subjective/Events-last exam doing well. no complaints. no clinical signs of GI bleed. Objective Exam Vital Signs Date Time Temp Pulse Resp B/P (MAP) Pulse Ox O2 Delivery O2 Flow Rate FiO2 03/26/21 08:13 36.9 03/26/21 08:00 113 16 119/80 Nasal Cannula 2.00 03/26/21 07:03 97 Nasal Cannula 2.00 03/26/21 07:00 114 03/26/21 04:50 36.6 100 15 136/91 94 Nasal Cannula 2.00 03/26/21 03:06 98 Nasal Cannula 2.00 03/26/21 01:00 120 03/26/21 00:29 36.4 03/26/21 00:26 132/94 03/26/21 00:00 95 20 122/101 96 Nasal Cannula 2.00 03/25/21 20:10 36.1 03/25/21 20:00 Nasal Cannula 2.00 03/25/21 20:00 113 19 115/71 96 Nasal Cannula 2.00 03/25/21 19:00 102 03/25/21 16:07 36.3 03/25/21 16:00 Nasal Cannula 3.00 03/25/21 16:00 93 17 129/93 96 Nasal Cannula 3.00 03/25/21 13:00 96 03/25/21 12:00 Nasal Cannula 3.00 03/25/21 12:00 108 20 130/94 96 Nasal Cannula 3.00 03/25/21 11:29 37.0 I & O 03/26/21 07:00 Intake Total 1950 ml Output Total 700 ml Balance 1250 ml Capillary Refill : Less Than 3 Seconds General Appearance: No Apparent Distress HEENT: PERRL/EOMI Neck: Full Range of Motion Respiratory: Chest Non Tender, Lungs Clear Cardiovascular: Regular Rate, Rhythm Gastrointestinal: normal bowel sounds, non tender, soft Extremity: Normal Capillary Refill Neurologic/Psychiatric: Alert, Oriented x3 Skin: Normal Color Lymphatic: No Adenopathy Results Lab Laboratory Tests 03/26/21 04:20: White Blood Count 13.1H, Red Blood Count 3.92, Hemoglobin 8.1L, Hematocrit 29L, Mean Corpuscular Volume 75L, Mean Corpuscular Hemoglobin 21L, Mean Corpuscular Hemoglobin Concent 28L, Red Cell Distribution Width 21.2H, Platelet Count 389, Mean Platelet Volume 10.8, Immature Granulocyte % (Auto) 0, Neutrophils (%) (Auto) 77H, Lymphocytes (%) (Auto) 12, Monocytes (%) (Auto) 7, Eosinophils (%) (Auto) 2, Basophils (%) (Auto) 1, Neutrophils # (Auto) 10.1H, Lymphocytes # (Auto) 1.6, Monocytes # (Auto) 1.0, Eosinophils # (Auto) 0.3, Basophils # (Auto) 0.1, Immature Granulocyte # (Auto) 0.1, Sodium Level 138, Potassium Level 3.6, Chloride Level 104, Carbon Dioxide Level 23, Anion Gap 11, Blood Urea Nitrogen 11, Creatinine 0.84, Estimat Glomerular Filtration Rate 66, BUN/Creatinine Ratio 13, Glucose Level 84, Calcium Level 8.6, Corrected Calcium 9.3, Total Bilirubin 0.6, Aspartate Amino Transf (AST/SGOT) 12, Alanine Aminotransferase (ALT/SGPT) 10, Alkaline Phosphatase 51, Total Protein 5.4L, Albumin 3.1L Microbiology 03/22/21 MRSA Screen - Final, Complete MRSA not isolated Assessment/Plan Assessment/Plan Assess & Plan/Chief Complaint a-fib with rvr with anemia and jae ulcer not actively bleeding. advance PUD diet. ok for anticoag per cardiology. TAMMY NICHOLS MD Mar 26, 2021 10:40
[2021-03-26] MEDS ORDERED: IRON SUCROSE 200 MG/10 ML (VENOFER) VIAL IV SCH (12:30)
--- NOTE | 2021-03-26 15:52 | Cardiology Progress Note ---
Progress Note-Cardiology Events since last exam Date Seen by Provider: Mar 26, 2021 Time Seen by Provider: 15:47 Events since last exam I am following her for atrial fibrillation. She was transferred out of the ICU down to the medical floor earlier today. She received her first dose of rivaroxaban last evening. She does not note any dark stool. She denies chest pain, dyspnea at rest, palpitations, syncope, or ankle edema. Certain portions of this document may have been dictated utilizing voice recognition technology. Inherent to this technology, typographical and grammatical errors may exist. As much as I am diligent to identify and correct these mistakes, some errors may remain in the document. Vitals Last set of Vitals Signs Vital Signs 03/26/21 13:12 Temp 36.5 Pulse 106 Resp 18 B/P (MAP) 114/80 Pulse Ox 97 O2 Delivery Nasal Cannula O2 Flow Rate 2.00 Labs Labs Laboratory Tests 03/26/21 04:20 Exam Vital Signs Vital Signs Date Time Temp Pulse Resp B/P (MAP) Pulse Ox O2 Delivery O2 Flow Rate FiO2 03/26/21 13:12 36.5 106 18 114/80 97 Nasal Cannula 2.00 Physical Exam General: Alert. No acute distress. She is obese. Eye: No xanthelasma. HENT: Normocephalic. Neck: Jugular venous pressure does not appear elevated. Respiratory: Lungs are clear to auscultation. Respirations are non-labored. Breath sounds are equal. Symmetrical chest wall expansion. Cardiovascular: Normal rate. Irregular rhythm. No murmur. No gallop. Trace bilateral pretibial edema. Gastrointestinal: Soft. Normal bowel sounds. Skin: Warm. Dry. Neurologic: Alert and oriented to person, place, time. Cranial nerves 3-11 grossly intact. Psychiatric: Cooperative. Appropriate mood & affect. Labs Laboratory Tests Test 03/26/21 04:20 03/26/21 06:00 Range/Units White Blood Count 13.1 H 4.3-11.0 10^3/uL Red Blood Count 3.92 3.80-5.11 10^6/uL Hemoglobin 8.1 L 11.5-16.0 g/dL Hematocrit 29 L 35-52 % Mean Corpuscular Volume 75 L 80-99 fL Mean Corpuscular Hemoglobin 21 L 25-34 pg Mean Corpuscular Hemoglobin Concent 28 L 32-36 g/dL Red Cell Distribution Width 21.2 H 10.0-14.5 % Platelet Count 389 130-400 10^3/uL Mean Platelet Volume 10.8 9.0-12.2 fL Immature Granulocyte % (Auto) 0 % Neutrophils (%) (Auto) 77 H 42-75 % Lymphocytes (%) (Auto) 12 12-44 % Monocytes (%) (Auto) 7 0-12 % Eosinophils (%) (Auto) 2 0-10 % Basophils (%) (Auto) 1 0-10 % Neutrophils # (Auto) 10.1 H 1.8-7.8 10^3/uL Lymphocytes # (Auto) 1.6 1.0-4.0 10^3/uL Monocytes # (Auto) 1.0 0.0-1.0 10^3/uL Eosinophils # (Auto) 0.3 0.0-0.3 10^3/uL Basophils # (Auto) 0.1 0.0-0.1 10^3/uL Immature Granulocyte # (Auto) 0.1 0.0-0.1 10^3/uL Sodium Level 138 135-145 MMOL/L Potassium Level 3.6 3.6-5.0 MMOL/L Chloride Level 104 98-107 MMOL/L Carbon Dioxide Level 23 21-32 MMOL/L Anion Gap 11 5-14 MMOL/L Blood Urea Nitrogen 11 7-18 MG/DL Creatinine 0.84 0.60-1.30 MG/DL Estimat Glomerular Filtration Rate 66 BUN/Creatinine Ratio 13 Glucose Level 84 70-105 MG/DL Calcium Level 8.6 8.5-10.1 MG/DL Corrected Calcium 9.3 8.5-10.1 MG/DL Total Bilirubin 0.6 0.1-1.0 MG/DL Aspartate Amino Transf (AST/SGOT) 12 5-34 U/L Alanine Aminotransferase (ALT/SGPT) 10 0-55 U/L Alkaline Phosphatase 51 40-136 U/L Total Protein 5.4 L 6.4-8.2 GM/DL Albumin 3.1 L 3.2-4.5 GM/DL Diagnosis/Problems Diagnosis/Problems (1) Persistent atrial fibrillation Assessment & Plan: She has atrial fibrillation of unknown duration. At this point, it will essentially become persistent atrial fibrillation since this is gone on now for several days. She seems to be asymptomatic with this. Her left atrium is only mildly dilated by echocardiogram which suggests that the atrial fibrillation may be something recent. Unclear whether or not this may have been brought on by the severe anemia or this just happens to be a coincidence. I have started her on oral beta-rupal and increased the dose on 03/25. She still has a tendency to run heart rates in the high 90s. I changed the metoprolol succinate to 50 mg twice daily on 03/25. I did this to help avoid iatrogenic hypotension by giving her 100 mg all at once in the morning. She started rivaroxaban on 03/25. I prefer rivaroxaban over apixaban or other agents since she can get the rivaroxaban at a markedly reduced cost through a special hospital program. I would recommend a minimum of 30 days of oral anticoagulation followed by cardioversion. Since her heart rate is reasonably well controlled and she is asymptomatic, there is no urgent need to perform transesophageal echocardiogram and cardioversion during this admission. She will need to arrange the cardioversion through her regular traveling storekeeper in [place]. If she would prefer to follow with me, I could also arrange for cardioversion here in about 30 days. There is a good chance she will be discharged tomorrow. (2) Anemia Assessment & Plan: Etiology unclear but possibly related to the ulcer at the GE junction although this was not bleeding at the time of the upper endoscopy. As above, she has tolerated rivaroxaban so far without signs of recurrent hemorrhaging. (3) Primary hypertension Assessment & Plan: Her blood pressures are controlled with metoprolol. I did not resume her home dose of amlodipine so that we can use higher doses of metoprolol if needed for rate control for the atrial fibrillation. As above, I increased the dose of metoprolol on 03/25 by making this twice daily. (4) Pulmonary hypertension Assessment & Plan: By her report, she has pulmonary hypertension. She follows with a traveling storekeeper at [facility] in [place], [place] for management of this condition. The echocardiogram from the outside hospital prior to admission here only shows mild pulmonary hypertension. This can be followed by her regular c ardiologist at the outside facility after discharge. (5) Aortic regurgitation Assessment & Plan: Her echocardiogram from [facility] just prior to her being transferred here showed mild aortic regurgitation. This should not be contributing to the current situation but will need to be followed longitudinally after discharge. (6) Obesity Assessment & Plan: She needs to work on weight loss. There is data that 20 pounds of weight loss will help reduce the risk of recurrent atrial fibrillation. PRAVEEN ALONZO JR, MD Mar 26, 2021 15:52
[2021-03-26] MEDS: RIVAROXABAN 20 MG TABLET (XARELTO) PO SCH (17:29)
[2021-03-27] MEDS: LEVOTHYROXINE 100 MCG (LEVOTHROID) TAB PO SCH (05:24)
[2021-03-27] MEDS: SUCRALFATE 1 GM (CARAFATE) TAB PO SCH ×3 (05:24→16:57)
[2021-03-27 05:29] LABS: BASOPHILS # (AUTO) 0.1 10^3/uL (0.0-0.1); BASOPHILS % (AUTO) 1 % (0-10); EOSINOPHILS # (AUTO) 0.3 10^3/uL (0.0-0.3); EOSINOPHILS % (AUTO) 3 % (0-10); HEMATOCRIT 30 % (35-52); HEMOGLOBIN 8.2 g/dL (11.5-16.0); LYMPHOCYTES # (AUTO) 1.5 10^3/uL (1.0-4.0); LYMPHOCYTES % (AUTO) 13 % (12-44); MEAN CORPUSCULAR HEMOGLOBIN 20 pg (25-34); MEAN CORPUSCULAR HGB CONC 27 g/dL (32-36); MEAN CORPUSCULAR VOLUME 75 fL (80-99); MEAN PLATELET VOLUME 10.3 fL (9.0-12.2); MONOCYTES # (AUTO) 0.9 10^3/uL (0.0-1.0); MONOCYTES % (AUTO) 7 % (0-12); NEUTROPHILS # (AUTO) 9.1 10^3/uL (1.8-7.8); NEUTROPHILS % (AUTO) 76 % (42-75); PLATELET COUNT 375 10^3/uL (130-400)
[2021-03-27 05:54] LABS: ALBUMIN 3.3 GM/DL (3.2-4.5); BILIRUBIN,TOTAL 0.5 MG/DL (0.1-1.0); CALCIUM 9.3 MG/DL (8.5-10.1); CREATININE SERUM 0.82 MG/DL (0.60-1.30); POTASSIUM 3.8 MMOL/L (3.6-5.0); TOTAL PROTEIN 5.6 GM/DL (6.4-8.2)
[2021-03-27] MEDS ORDERED: IRON100V2 IV (06:55)
--- NOTE | 2021-03-27 07:56 | Progress Note - Surgery ---
SABI FREITAS 03/27/21 0756: Subjective Date Seen by a Provider: Mar 27, 2021 Time Seen by a Provider: 07:00 Subjective/Events-last exam Pt up sitting comfortably eating her breakfast. No complaints of eating or drinking. Pt reports urinary frequency. Last bowel movement this morning with no blood. Denies any fever, chills, nausea, vomiting, diarrhea, or chest pain. Hgb stable around 8.2 for past 3 days. Objective Exam Vital Signs Date Time Temp Pulse Resp B/P (MAP) Pulse Ox O2 Delivery O2 Flow Rate FiO2 03/27/21 03:59 37.0 84 18 127/78 95 Nasal Cannula 2.00 03/27/21 00:00 36.4 89 19 133/76 93 Nasal Cannula 2.00 03/26/21 21:00 Nasal Cannula 2.00 03/26/21 19:30 37.4 107 18 129/92 97 Nasal Cannula 2.00 03/26/21 19:17 98 Nasal Cannula 2.00 03/26/21 15:59 36.6 93 20 137/87 95 Nasal Cannula 2.00 03/26/21 13:12 36.5 106 18 114/80 97 Nasal Cannula 2.00 03/26/21 12:00 107 15 112/90 Nasal Cannula 2.00 03/26/21 09:00 Nasal Cannula 2.00 03/26/21 08:13 36.9 03/26/21 08:00 113 16 119/80 Nasal Cannula 2.00 I & O 03/27/21 07:00 Intake Total 1760 ml Balance 1760 ml Capillary Refill : Less Than 3 Seconds General Appearance: No Apparent Distress, WD/WN, Chronically ill HEENT: PERRL/EOMI Neck: Full Range of Motion, Non Tender, Supple Respiratory: Chest Non Tender, Lungs Clear, Normal Breath Sounds Cardiovascular: Irregularly Irregular Gastrointestinal: normal bowel sounds, non tender, soft Extremity: Normal Capillary Refill, Non Tender, No Calf Tenderness, No Pedal Edema Neurologic/Psychiatric: Alert, Oriented x3, Normal Mood/Affect Skin: Normal Color, Warm/Dry Results Lab Laboratory Tests 03/27/21 05:25: White Blood Count 12.0H, Red Blood Count 4.01, Hemoglobin 8.2L, Hematocrit 30L, Mean Corpuscular Volume 75L, Mean Corpuscular Hemoglobin 20L, Mean Corpuscular Hemoglobin Concent 27L, Red Cell Distribution Width 21.6H, Platelet Count 375, Mean Platelet Volume 10.3, Immature Granulocyte % (Auto) 1, Neutrophils (%) (Auto) 76H, Lymphocytes (%) (Auto) 13, Monocytes (%) (Auto) 7, Eosinophils (%) (Auto) 3, Basophils (%) (Auto) 1, Neutrophils # (Auto) 9.1H, Lymphocytes # (Auto) 1.5, Monocytes # (Auto) 0.9, Eosinophils # (Auto) 0.3, Basophils # (Auto) 0.1, Immature Granulocyte # (Auto) 0.1, Sodium Level 140, Potassium Level 3.8, Chloride Level 105, Carbon Dioxide Level 25, Anion Gap 10, Blood Urea Nitrogen 11, Creatinine 0.82, Estimat Glomerular Filtration Rate 67, BUN/Creatinine Ratio 13, Glucose Level 82, Calcium Level 9.3, Corrected Calcium 9.9, Total Bilirubin 0.5, Aspartate Amino Transf (AST/SGOT) 15, Alanine Aminotransferase (ALT/SGPT) 11, Alkaline Phosphatase 53, Total Protein 5.6L, Albumin 3.3 Microbiology 03/22/21 MRSA Screen - Final, Complete MRSA not isolated Assessment/Plan Assessment/Plan Assessment/Plan Atrial fibrillation with RVR Anemia h/o HTN h/o Hypothroid Hbg at 8.2 Continue to monitor Hgb and transfuse as necessary Anticoag approved by cardiology, on Xarelto Continue PT/OT Supportive care JOSH CARDENAS DO 03/27/21 2143: Subjective Subjective/Events-last exam Patient doing well. Tolerating diet. Patient having bowel function no evidence of any blood. Patient hemoglobin stable. Denies any nausea vomiting fever sweats chills shortness of breath or chest pain. Objective Exam General Appearance: No Apparent Distress, Chronically ill HEENT: PERRL/EOMI, Normal ENT Inspection Neck: Full Range of Motion, Non Tender, Supple Respiratory: Chest Non Tender, Normal Breath Sounds Cardiovascular: No JVD, Irregularly Irregular Gastrointestinal: non tender, soft Extremity: Normal Capillary Refill, Non Tender, No Calf Tenderness Neurologic/Psychiatric: Alert, Oriented x3, Normal Mood/Affect Skin: Normal Color, Warm/Dry Lymphatic: No Adenopathy Assessment/Plan Assessment/Plan Assessment/Plan Atrial fibrillation with RVR Anemia h/o HTN h/o Hypothroid Colon polyps and hiatal hernia with GE ulcer s/p egd colonoscopy with polypectomies Hbg at 8.2 Continue to monitor Hgb and transfuse as necessary Anticoag approved by cardiology, on Xarelto Continue PT/OT Supportive care Follow up pathology Protonix/Carfate Supervisory-Addendum Brief Verification & Attestation Participated in pt care: history, MDM, physical Personally performed: exam, history, MDM, supervision of care Care discussed with: Medical Student Procedures: n/a Results interpretation: Verified all documentation Verification and Attestation of Medical Student E/M Service A medical student performed and documented this service in my presence. I reviewed and verified all information documented by the medical student and made modifications to such information, when appropriate. I personally performed the physical exam and medical decision making. Josh Cardenas, Mar 27, 2021,21:42 SABI FREITAS Mar 27, 2021 07:56 JOSH CARDENAS DO Mar 27, 2021 21:43
[2021-03-27] MEDS ORDERED: PANT40TA52 PO (09:05)
[2021-03-27] MEDS ORDERED: SUCR1TAB PO (09:05)
[2021-03-27] MEDS ORDERED: METO50TA7 PO (09:05)
[2021-03-27] MEDS ORDERED: RIVA20TA2 PO ×2 (09:05→09:28)
--- NOTE | 2021-03-27 09:05 | Discharge Summary ---
Diagnosis/Chief Complaint Date of Admission Mar 22, 2021 at 14:57 Date of Discharge Discharge Date: Mar 27, 2021 Discharge Diagnosis Assessment: New onset atrial fibrillation with rapid ventricular response Severe symptomatic anemia status post transfusions Severe iron deficiency anemia requiring IV iron infusion GI bleed due to peptic ulcer disease Colon polyps Mild hypotension now resolved New oxygen dependency Discharge Summary Discharge Physical Examination Allergies: Coded Allergies: No Known Drug Allergies (Unverified , 03/22/21) Vitals & I&Os Vital Signs Date Time Temp Pulse Resp B/P (MAP) Pulse Ox O2 Delivery O2 Flow Rate FiO2 03/27/21 18:15 36.8 102 18 116/76 96 Nasal Cannula 2.00 General Appearance: Alert, Oriented X3, Cooperative Respiratory: Clear to Auscultation, Normal Air Movement Cardiovascular: Other (Irregular rhythm) Neuro: Normal Gait, Normal Speech, Strength at 5/5 X4 Ext Psych/Mental Status: Mental Status NL Hospital Course Was the Problem List Reviewed?: Yes On 03/22 a 80 yo F presents to the ICU from [place] via EMS due to asymptomatic Atrial Fibrillation with RVR and anemia. She has SOB on exertion and denies any symptoms related to her anemia or atrial fibrillation which includes no black or tarry stools, CP, or recent falls. Her hemoglobin on 03/22 is 6.9 and hematocrit of 27. She was transfused with two units of blood on that day and treated with rate control meds, anticoagulation medications were not started due to her anemia. Over the next few days she continued to improve and her hemoglobin remained stable between 7 and 8. An endoscopy was performed which revealed an Reji ulcer that was not actively bleeding. Cardiology approved her to be started on anticoagulation after her endoscopy and she will be seen in [place] for her Afib for possible cardioversion within the next 30 days. She was discharged on 03/27 with home health and she will be staying with her son. ROMMEL TORRES Verification and Attestation of Medical Student E/M Service A medical student performed and documented this service in my presence. I reviewed and verified all information documented by the medical student and made modifications to such information, when appropriate. I personally performed the physical exam and medical decision making. Ivy Pierre, Mar 28, 2021,04:47 Labs (last 24 hrs) Laboratory Tests 03/22/21 14:00: White Blood Count 12.7H, Red Blood Count 3.67L, Hemoglobin 6.9*L, Hematocrit 27L , Mean Corpuscular Volume 73L, Mean Corpuscular Hemoglobin 19L, Mean Corpuscular Hemoglobin Concent 26L, Red Cell Distribution Width 18.9H, Platelet Count 469H, Mean Platelet Volume 11.0, Immature Granulocyte % (Auto) 1, Neutrophils (%) (Auto) 80H, Lymphocytes (%) (Auto) 11L, Monocytes (%) (Auto) 7, Eosinophils (%) (Auto) 1, Basophils (%) (Auto) 0, Neutrophils # (Auto) 10.2H, Lymphocytes # (Auto) 1.4, Monocytes # (Auto) 0.9, Eosinophils # (Auto) 0.2, Basophils # (Auto) 0.0, Immature Granulocyte # (Auto) 0.1, Neutrophils % (Manual) 86, Lymphocytes % (Manual) 7, Monocytes % (Manual) 5, Eosinophils % (Manual) 2, Percent Immature Platelet Fraction 5.4, Hypochromasia MARKED, Target Cells SLIGHT, Cunningham Cells SLIGHT, Elliptocytes SLIGHT, Blood Morphology Comment NA, Absolute Reticulocyte Count 65, Percent Reticulocyte Count 1.76 03/22/21 17:00: Sodium Level 142, Potassium Level 3.2L, Chloride Level 109H, Carbon Dioxide Level 22, Anion Gap 11, Blood Urea Nitrogen 9, Creatinine 0.78, Estimat Glomerular Filtration Rate 71, BUN/Creatinine Ratio 12, Glucose Level 83, Calcium Level 8.6, Corrected Calcium 9.1, Total Bilirubin 1.3H, Aspartate Amino Transf (AST/SGOT) 17, Alanine Aminotransferase (ALT/SGPT) 12, Alkaline Phosphatase 52, Total Protein 5.8L, Albumin 3.4 03/22/21 19:20: White Blood Count 12.9H, Red Blood Count 3.99, Hemoglobin 8.3#L, Hematocrit 29L, Mean Corpuscular Volume 73L, Mean Corpuscular Hemoglobin 21L, Mean Corpuscular Hemoglobin Concent 28L, Red Cell Distribution Width 19.0H, Platelet Count 430H, Mean Platelet Volume 10.7, Immature Granulocyte % (Auto) 1, Neutrophils (%) (Auto) 74, Lymphocytes (%) (Auto) 16, Monocytes (%) (Auto) 7, Eosinophils (%) (Auto) 2, Basophils (%) (Auto) 1, Neutrophils # (Auto) 9.6H, Lymphocytes # ( Auto) 2.0, Monocytes # (Auto) 0.9, Eosinophils # (Auto) 0.3, Basophils # (Auto) 0.1, Immature Granulocyte # (Auto) 0.1 03/23/21 04:35: White Blood Count 12.4H, Red Blood Count 3.68L, Hemoglobin 7.4L, Hematocrit 27L, Mean Corpuscular Volume 73L, Mean Corpuscular Hemoglobin 20L, Mean Corpuscular Hemoglobin Concent 28L, Red Cell Distribution Width 19.0H, Platelet Count 365, Mean Platelet Volume 10.6, Immature Granulocyte % (Auto) 1, Neutrophils (%) (Auto) 80H, Lymphocytes (%) (Auto) 10L, Monocytes (%) (Auto) 7, Eosinophils (%) (Auto) 2, Basophils (%) (Auto) 0, Neutrophils # (Auto) 9.9H, Lymphocytes # (Auto) 1.3, Monocytes # (Auto) 0.9, Eosinophils # (Auto) 0.2, Basophils # (Auto) 0.1, Immature Granulocyte # (Auto) 0.1, Sodium Level 139, Potassium Level 3.1L, Chloride Level 107, Carbon Dioxide Level 22, Anion Gap 10, Blood Urea Nitrogen 7, Creatinine 0.76, Estimat Glomerular Filtration Rate 74, BUN/Creatinine Ratio 9, Glucose Level 86, Calcium Level 8.2L, Corrected Calcium 8.8, Total Bilirubin 1.1H, Aspartate Amino Transf (AST/SGOT) 15, Alanine Aminotransferase (ALT/SGPT) 12, Alkaline Phosphatase 54, Total Protein 5.3L, Albumin 3.3, Phosphorus Level 2.9, Magnesium Level 1.8 03/23/21 09:18: Urine Color YELLOW, Urine Clarity CLEAR, Urine pH 6.0, Urine Specific [place] >=1.030, Urine Protein TRACEH, Urine Glucose (UA) NEGATIVE, Urine Ketones NEGATIVE, Urine Nitrite NEGATIVE, Urine Bilirubin NEGATIVE, Urine Urobilinogen 1.0, Urine Leukocyte Esterase NEGATIVE, Urine RBC (Auto) NEGATIVE, Urine RBC NONE, Urine WBC 0-2, Urine Squamous Epithelial Cells 2-5, Urine Crystals NONE, Urine Bacteria TRACE, Urine Casts NONE, Urine Mucus NEGATIVE, Urine Culture Indicated NO 03/23/21 12:15: White Blood Count 14.6H, Red Blood Count 3.99, Hemoglobin 8.2L, Hematocrit 29L, Mean Corpuscular Volume 72L, Mean Corpuscular Hemoglobin 21L, Mean Corpuscular Hemoglobin Concent 29L, Red Cell Distribution Width 19.1H, Platelet Count 437H, Mean Platelet Volume 10.5, B-Type Natriuretic Peptide 681.1H, Procalcitonin 0.03 03/24/21 04:05: White Blood Count 12.7H, Red Blood Count 3.56L, Hemoglobin 7.3L, Hematocrit 26L, Mean Corpuscular Volume 74L, Mean Corpuscular Hemoglobin 21L, Mean Corpuscular Hemoglobin Concent 28L, Red Cell Distribution Width 19.7H, Platelet Count 355, Mean Platelet Volume 10.3, Immature Granulocyte % (Auto) 0, Neutrophils (%) (Auto) 76H, Lymphocytes (%) (Auto) 12, Monocytes (%) (Auto) 9, Eosinophils (%) (Auto) 3, Basophils (%) (Auto) 0, Neutrophils # (Auto) 9.6H, Lymphocytes # (Auto) 1.5, Monocytes # (Auto) 1.1H, Eosinophils # (Auto) 0.4H, Basophils # (Auto) 0.0, Immature Granulocyte # (Auto) 0.1, Neutrophils % (Manual) 77, Lympho cytes % (Manual) 10, Monocytes % (Manual) 8, Eosinophils % (Manual) 4, Band Neutrophils 1, Toxic Granulation 1+, Hypochromasia MARKED, Target Cells SLIGHT, Cunningham Cells SLIGHT, Crenated Cell SLIGHT, Elliptocytes SLIGHT, Sodium Level 138, Potassium Level 2.8L, Chloride Level 106, Carbon Dioxide Level 22, Anion Gap 10, Blood Urea Nitrogen 5L, Creatinine 0.83, Estimat Glomerular Filtration Rate 66, BUN/Creatinine Ratio 6, Glucose Level 83, Calcium Level 8.3L, Phosphorus Level 3.0, Magnesium Level 1.7 03/24/21 08:40: SARS-CoV-2 RNA (RT-PCR) Not Detected 03/25/21 08:00: White Blood Count 13.0H, Red Blood Count 3.95, Hemoglobin 8.1L, Hematocrit 29L, Mean Corpuscular Volume 74L, Mean Corpuscular Hemoglobin 21L, Mean Corpuscular Hemoglobin Concent 28L, Red Cell Distribution Width 20.6H, Platelet Count 390, Mean Platelet Volume 10.3, Immature Granulocyte % (Auto) 1, Neutrophils (%) (Auto) 80H, Lymphocytes (%) (Auto) 10L, Monocytes (%) (Auto) 7, Eosinophils (%) (Auto) 2, Basophils (%) (Auto) 0, Neutrophils # (Auto) 10.4H, Lymphocytes # (Auto) 1.3, Monocytes # (Auto) 0.9, Eosinophils # (Auto) 0.3, Basophils # (Auto) 0.0, Immature Granulocyte # (Auto) 0.1, Neutrophils % (Manual) 87, Lymphocytes % (Manual) 5, Monocytes % (Manual) 6, Eosinophils % (Manual) 2, Basophils % (Manual) 0, Band Neutrophils 0, Polychromasia MODERATE, Hypochromasia MODERATE, Anisocytosis MARKED, Microcytosis SLIGHT, Sodium Level 139, Potassium Level 3.3L , Chloride Level 106, Carbon Dioxide Level 22, Anion Gap 11, Blood Urea Nitrogen 6L, Creatinine 0.80, Estimat Glomerular Filtration Rate 69, BUN/Creatinine Ratio 8, Glucose Level 78, Calcium Level 8.4L, Corrected Calcium 9.0, Total Bilirubin 0.7, Aspartate Amino Transf (AST/SGOT) 13, Alanine Aminotransferase (ALT/SGPT) 9, Alkaline Phosphatase 57, Total Protein 5.8L, Albumin 3.3 03/26/21 04:20: White Blood Count 13.1H, Red Blood Count 3.92, Hemoglobin 8.1L, Hematocrit 29L, Mean Corpuscular Volume 75L, Mean Corpuscular Hemoglobin 21L, Mean Corpuscular Hemoglobin Concent 28L, Red Cell Distribution Width 21.2H, Platelet Count 389, Mean Platelet Volume 10.8, Immature Granulocyte % (Auto) 0, Neutrophils (%) (Auto) 77H, Lymphocytes (%) (Auto) 12, Monocytes (%) (Auto) 7, Eosinophils (%) (Auto) 2, Basophils (%) (Auto) 1, Neutrophils # (Auto) 10.1H, Lymphocytes # (Auto) 1.6, Monocytes # (Auto) 1.0, Eosinophils # (Auto) 0.3, Basophils # (Auto) 0.1, Immature Granulocyte # (Auto) 0.1, Sodium Level 138, Potassium Level 3.6, Chloride Level 104, Carbon Dioxide Level 23, Anion Gap 11, Blood Urea Nitrogen 11, Creatinine 0.84, Estimat Glomerular Filtration Rate 66, BUN/Creatinine Ratio 13, Glucose Level 84, Calcium Level 8.6, Corrected Calcium 9.3, Total Bilirubin 0.6, Aspartate Amino Transf (AST/SGOT) 12, Alanine Aminotransferase (ALT/SGPT) 10, Alkaline Phosphatase 51, Total Protein 5.4L, Albumin 3.1L 03/26/21 06:00: Iron Level 18L 03/27/21 05:25: White Blood Count 12.0H, Red Blood Count 4.01, Hemoglobin 8.2L, Hematocrit 30L, Mean Corpuscular Volume 75L, Mean Corpuscular Hemoglobin 20L, Mean Corpuscular Hemoglobin Concent 27L, Red Cell Distribution Width 21.6H, Platelet Count 375, Mean Platelet Volume 10.3, Immature Granulocyte % (Auto) 1, Neutrophils (%) (Auto) 76H, Lymphocytes (%) (Auto) 13, Monocytes (%) (Auto) 7, Eosinophils (%) (Auto) 3, Basophils (%) (Auto) 1, Neutrophils # (Auto) 9.1H, Lymphocytes # (Auto) 1.5, Monocytes # (Auto) 0.9, Eosinophils # (Auto) 0.3, Basophils # (Auto) 0.1, Immature Granulocyte # (Auto) 0.1, Sodium Level 140, Potassium Level 3.8, Chloride Level 105, Carbon Dioxide Level 25, Anion Gap 10, Blood Urea Nitrogen 11, Creatinine 0.82, Estimat Glomerular Filtration Rate 67, BUN/Creatinine Ratio 13, Glucose Level 82, Calcium Level 9.3, Corrected Calcium 9.9, Total Bilirubin 0.5, Aspartate Amino Transf (AST/SGOT) 15, Alanine Aminotransferase (ALT/SGPT) 11, Alkaline Phosphatase 53, Total Protein 5.6L, Albumin 3.3 Microbiology 03/22/21 MRSA Screen - Final, Complete MRSA not isolated Pending Labs Microbiology Date/Time Source Procedure Growth Status 03/22/21 16:00 Nasal MRSA Screen - Final MRSA not isolated Complete Laboratory Tests 03/22/21 14:00: White Blood Count 12.7, Red Blood Count 3.67, Hemoglobin 6.9, Hematocrit 27, Mean Corpuscular Volume 73, Mean Corpuscular Hemoglobin 19, Mean Corpuscular Hemoglobin Concent 26, Red Cell Distribution Width 18.9, Platelet Count 469, Mean Platelet Volume 11.0, Immature Granulocyte % (Auto) 1, Neutrophils (%) (Auto) 80, Lymphocytes (%) (Auto) 11, Monocytes (%) (Auto) 7, Eosinophils (%) (Auto) 1, Basophils (%) (Auto) 0, Neutrophils # (Auto) 10.2, Lymphocytes # (Auto) 1.4, Monocytes # (Auto) 0.9, Eosinophils # (Auto) 0.2, Basophils # (Auto) 0.0, Immature Granulocyte # (Auto) 0.1, Neutrophils % (Manual) 86, Lymphocytes % (Manual) 7, Monocytes % (Manual) 5, Eosinophils % (Manual) 2, Percent Immature Platelet Fraction 5.4, Hypochromasia MARKED, Target Cells SLIGHT, [place] Cells SLIGHT, Elliptocytes SLIGHT, Blood Morphology Comment NA, Absolute Reticulocyte Count 65, Percent Reticulocyte Count 1.76 03/22/21 17:00: Sodium Level 142, Potassium Level 3.2, Chloride Level 109, Carbon Dioxide Level 22, Anion Gap 11, Blood Urea Nitrogen 9, Creatinine 0.78, Estimat Glomerular Filtration Rate 71, BUN/Creatinine Ratio 12, Glucose Level 83, Calcium Level 8.6, Corrected Calcium 9.1, Total Bilirubin 1.3, Aspartate Amino Transf (AST/SGOT) 17, Alanine Aminotransferase (ALT/SGPT) 12, Alkaline Phosphatase 52, Total Protein 5.8, Albumin 3.4 03/22/21 19:20: White Blood Count 12.9, Red Blood Count 3.99, Hemoglobin 8.3, Hematocrit 29, Mean Corpuscular Volume 73, Mean Corpuscular Hemoglobin 21, Mean Corpuscular Hemoglobin Concent 28, Red Cell Distribution Width 19.0, Platelet Count 430, Mean Platelet Volume 10.7, Immature Granulocyte % (Auto) 1, Neutrophils (%) (Auto) 74, Lymphocytes (%) (Auto) 16, Monocytes (%) (Auto) 7, Eosinophils (%) (Auto) 2, Basophils (%) (Auto) 1, Neutrophils # (Auto) 9.6, Lymphocytes # (Auto) 2.0, Monocytes # (Auto) 0.9, Eosinophils # (Auto) 0.3, Basophils # (Auto) 0.1, Immature Granulocyte # (Auto) 0.1 03/23/21 04:35: White Blood Count 12.4, Red Blood Count 3.68, Hemoglobin 7.4, Hematocrit 27, Mean Corpuscular Volume 73, Mean Corpuscular Hemoglobin 20, Mean Corpuscular Hemoglobin Concent 28, Red Cell Distribution Width 19.0, Platelet Count 365, Mean Platelet Volume 10.6, Immature Granulocyte % (Auto) 1, Neutrophils (%) (Auto) 80, Lymphocytes (%) (Auto) 10, Monocytes (%) (Auto) 7, Eosinophils (%) (Auto) 2, Basophils (%) (Auto) 0, Neutrophils # (Auto) 9.9, Lymphocytes # (Auto) 1.3, Monocytes # (Auto) 0.9, Eosinophils # (Auto) 0.2, Basophils # (Auto) 0.1, Immature Granulocyte # (Auto) 0.1, Sodium Level 139, Potassium Level 3.1, Chloride Level 107, Carbon Dioxide Level 22, Anion Gap 10, Blood Urea Nitrogen 7, Creatinine 0.76, Estimat Glomerular Filtration Rate 74, BUN/Creatinine Ratio 9, Glucose Level 86, Calcium Level 8.2, Corrected Calcium 8.8, Total Bilirubin 1.1, Aspartate Amino Transf (AST/SGOT) 15, Alanine Aminotransferase (ALT/SGPT) 12, Alkaline Phosphatase 54, Total Protein 5.3, Albumin 3.3, Phosphorus Level 2.9, Magnesium Level 1.8 03/23/21 09:18: Urine Color YELLOW, Urine Clarity CLEAR, Urine pH 6.0, Urine Specific [place] >=1.030, Urine Protein TRACE, Urine Glucose (UA) NEGATIVE, Urine Ketones NEGATIVE, Urine Nitrite NEGATIVE, Urine Bilirubin NEGATIVE, Urine Urobilinogen 1.0, Urine Leukocyte Esterase NEGATIVE, Urine RBC (Auto) NEGATIVE, Urine RBC NONE, Urine WBC 0-2, Urine Squamous Epithelial Cells 2-5, Urine Crystals NONE, Urine Bacteria TRACE, Urine Casts NONE, Urine Mucus NEGATIVE, Urine Culture Indicated NO 03/23/21 12:15: White Blood Count 14.6, Red Blood Count 3.99, Hemoglobin 8.2, Hematocrit 29, Mean Corpuscular Volume 72, Mean Corpuscular Hemoglobin 21, Mean Corpuscular Hemoglobin Concent 29, Red Cell Distribution Width 19.1, Platelet Count 437, Mean Platelet Volume 10.5, B-Type Natriuretic Peptide 681.1, Procalcitonin 0.03 03/24/21 04:05: White Blood Count 12.7, Red Blood Count 3.56, Hemoglobin 7.3, Hematocrit 26, Mean Corpuscular Volume 74, Mean Corpuscular Hemoglobin 21, Mean Corpuscular Hemoglobin Concent 28, Red Cell Distribution Width 19.7, Platelet Count 355, Mean Platelet Volume 10.3, Immature Granulocyte % (Auto) 0, Neutrophils (%) (Auto) 76, Lymphocytes (%) (Auto) 12, Monocytes (%) (Auto) 9, Eosinophils (%) (Auto) 3, Basophils (%) (Auto) 0, Neutrophils # (Auto) 9.6, Lymphocytes # (Auto) 1.5, Monocytes # (Auto) 1.1, Eosinophils # (Auto) 0.4, Basophils # (Auto) 0.0, Immature Granulocyte # (Auto) 0.1, Neutrophils % (Manual) 77, Lymphocytes % ( Manual) 10, Monocytes % (Manual) 8, Eosinophils % (Manual) 4, Band Neutrophils 1, Toxic Granulation 1+, Hypochromasia MARKED, Target Cells SLIGHT, Cunningham Cells SLIGHT, Crenated Cell SLIGHT, Elliptocytes SLIGHT, Sodium Level 138, Potassium Level 2.8, Chloride Level 106, Carbon Dioxide Level 22, Anion Gap 10, Blood Urea Nitrogen 5, Creatinine 0.83, Estimat Glomerular Filtration Rate 66, BUN/Creatinine Ratio 6, Glucose Level 83, Calcium Level 8.3, Phosphorus Level 3.0, Magnesium Level 1.7 03/24/21 08:40: SARS-CoV-2 RNA (RT-PCR) Not Detected 03/25/21 08:00: White Blood Count 13.0, Red Blood Count 3.95, Hemoglobin 8.1, Hematocrit 29, Mean Corpuscular Volume 74, Mean Corpuscular Hemoglobin 21, Mean Corpuscular Hemoglobin Concent 28, Red Cell Distribution Width 20.6, Platelet Count 390, Mean Platelet Volume 10.3, Immature Granulocyte % (Auto) 1, Neutrophils (%) (Auto) 80, Lymphocytes (%) (Auto) 10, Monocytes (%) (Auto) 7, Eosinophils (%) (Auto) 2, Basophils (%) (Auto) 0, Neutrophils # (Auto) 10.4, Lymphocytes # (Auto) 1.3, Monocytes # (Auto) 0.9, Eosinophils # (Auto) 0.3, Basophils # (Auto) 0.0, Immature Granulocyte # (Auto) 0.1, Neutrophils % (Manual) 87, Lymphocytes % (Manual) 5, Monocytes % (Manual) 6, Eosinophils % (Manual) 2, Basophils % (Manual) 0, Band Neutrophils 0, Polychromasia MODERATE, Hypochromasia MODERATE, Anisocytosis MARKED, Microcytosis SLIGHT, Sodium Level 139, Potassium Level 3.3, Chloride Level 106, Carbon Dioxide Level 22, Anion Gap 11, Blood Urea Nitrogen 6 , Creatinine 0.80, Estimat Glomerular Filtration Rate 69, BUN/Creatinine Ratio 8, Glucose Level 78, Calcium Level 8.4, Corrected Calcium 9.0, Total Bilirubin 0.7, Aspartate Amino Transf (AST/SGOT) 13, Alanine Aminotransferase (ALT/SGPT) 9, Alkaline Phosphatase 57, Total Protein 5.8, Albumin 3.3 03/26/21 04:20: White Blood Count 13.1, Red Blood Count 3.92, Hemoglobin 8.1, Hematocrit 29, Mean Corpuscular Volume 75, Mean Corpuscular Hemoglobin 21, Mean Corpuscular Hemoglobin Concent 28, Red Cell Distribution Width 21.2, Platelet Count 389, Mean Platelet Volume 10.8, Immature Granulocyte % (Auto) 0, Neutrophils (%) (Auto) 77, Lymphocytes (%) (Auto) 12, Monocytes (%) (Auto) 7, Eosinophils (%) (Auto) 2, Basophils (%) (Auto) 1, Neutrophils # (Auto) 10.1, Lymphocytes # (Auto) 1.6, Monocytes # (Auto) 1.0, Eosinophils # (Auto) 0.3, Basophils # (Auto) 0.1, Immature Granulocyte # (Auto) 0.1, Sodium Level 138, Potassium Level 3.6, Chloride Level 104, Carbon Dioxide Level 23, Anion Gap 11, Blood Urea Nitrogen 11, Creatinine 0.84, Estimat Glomerular Filtration Rate 66, BUN/Creatinine Ratio 13, Glucose Level 84, Calcium Level 8.6, Corrected Calcium 9.3, Total Bilirubin 0.6, Aspartate Amino Transf (AST/SGOT) 12, Alanine Aminotransferase (ALT/SGPT) 10, Alkaline Phosphatase 51, Total Protein 5.4, Albumin 3.1 03/26/21 06:00: Iron Level 18 03/27/21 05:25: White Blood Count 12.0, Red Blood Count 4.01, Hemoglobin 8.2, Hematocrit 30, Mean Corpuscular Volume 75, Mean Corpuscular Hemoglobin 20, Mean Corpuscular Hemoglobin Concent 27, Red Cell Distribution Width 21.6, Platelet Count 375, Mean Platelet Volume 10.3, Immature Granulocyte % (Auto) 1, Neutrophils (%) (Auto) 76, Lymphocytes (%) (Auto) 13, Monocytes (%) (Auto) 7, Eosinophils (%) (Auto) 3, Basophils (%) (Auto) 1, Neutrophils # (Auto) 9.1, Lymphocytes # (Auto) 1.5, Monocytes # (Auto) 0.9, Eosinophils # (Auto) 0.3, Basophils # (Auto) 0.1, Immature Granulocyte # (Auto) 0.1, Sodium Level 140, Potassium Level 3.8, Chloride Level 105, Carbon Dioxide Level 25, Anion Gap 10, Blood Urea Nitrogen 11, Creatinine 0.82, Estimat Glomerular Filtration Rate 67, BUN/Creatinine Ratio 13, Glucose Level 82, Calcium Level 9.3, Corrected Calcium 9.9, Total Bilirubin 0.5, Aspartate Amino Transf (AST/SGOT) 15, Alanine Aminotransferase (ALT/SGPT) 11, Alkaline Phosphatase 53, Total Protein 5.6, Albumin 3.3 Discharge Home Medications: Active Scripts Active Xarelto Tablet (Rivaroxaban) 20 Mg Tablet 20 Mg PO DAILY@1700 Pantoprazole Sodium 40 Mg Tablet.dr 40 Mg PO DAILY Sucralfate 1 Gm Tablet 1 Gm PO ACHS Metoprolol Succinate 50 Mg Tab.er.24h 50 Mg PO BID Reported Alendronate Sodium 70 Mg Tablet 70 Mg PO SATURDAY Levothyroxine Sodium 100 Mcg Tablet 100 Mcg PO DAILY Instructions to patient/family Please see electronic discharge instructions given to patient. Diagnosis/Problems Diagnosis/Problems (1) Atrial fibrillation with RVR (2) Anemia IVY PIERRE DO Mar 27, 2021 09:05
[2021-03-27] MEDS: meTOproloL SUCCINATE 50 MG (TOPROL XL) TAB PO SCH (09:17)
[2021-03-27] MEDS: PANTOPRAZOLE 40 MG (PROTONIX) TAB PO SCH (09:17)
[2021-03-27] MEDS: KCL 20 MEQ TAB (K-DUR) PO SCH (09:17)
--- NOTE | 2021-03-27 09:55 | D/C HH Face to Face Order ---
D/C Face to Face Orders Reconcile Patient Problems Problems Reviewed?: Yes Instructions for Patient Via [facility], Patient Instructions/FollowUp: Dr Delgadillo 2 weeks Physician to follow Patient: Elie Discharge Diet for Home: No Restrictions Patient Problems: O2 dependence GIB AF Patient Data-Allergies,Ht & Wt Patient Allergies: Coded Allergies: No Known Drug Allergies (Unverified , 03/22/21) Home Health Need/Face to Face Date of Face to Face: Mar 27, 2021 Clinical Findings: Generalized weakness and fatigue, Muscle weakness, Shortness of breath I have seen Pt [id number]: Yes Discharged To: Home Diagnosis/Conditions: debility Patient is Homebound due to: Muscle weakness, Shortness of breath/distress Homebound Status Due to the above stated illness, injury or surgical procedure (medical condition or diagnosis) and associated clinical findings, the patient is homebound because of his/her inability to leave home except with aid of a supportive device and/or person AND leaving the home requires a considerable and taxing effort or is medically contraindicated. Pt req the following assistanc: [facility] Nursing Orders Home Health Services Order: Nursing Services (home o2 weaning), Bedspread Seamer-Evaluate & Treat, Physical Therapy-Evaluate & Treat Certify Stmt I certify that this patient is under my care and that I, a nurse practitioner or a physician; a certified physician's assistant working with me, had a face to face encounter that - meets the physician face to face encounter requirements with this patient as dated. MALGORZATA GARCIA DO Mar 27, 2021 09:55
--- NOTE | 2021-03-27 10:17 | Cardiology Progress Note ---
Progress Note-Cardiology Events since last exam Date Seen by Provider: Mar 27, 2021 Time Seen by Provider: 10:15 Events since last exam I am following her for atrial fibrillation. She is hoping to go home today. She denies dyspnea at rest. She denies chest pain, palpitations, or syncope. Her chronic lower extremity edema is somewhat improved today. Certain portions of this document may have been dictated utilizing voice recognition technology. Inherent to this technology, typographical and grammatical errors may exist. As much as I am diligent to identify and correct these mistakes, some errors may remain in the document. Vitals Last set of Vitals Signs Vital Signs 03/27/21 15:49 Temp 36.8 Pulse 102 Resp 18 B/P (MAP) 116/76 Pulse Ox 96 O2 Delivery Nasal Cannula O2 Flow Rate 2.00 Labs Labs Laboratory Tests 03/27/21 05:25 Exam Vital Signs Vital Signs Date Time Temp Pulse Resp B/P (MAP) Pulse Ox O2 Delivery O2 Flow Rate FiO2 03/27/21 15:49 36.8 102 18 116/76 96 Nasal Cannula 2.00 Physical Exam General: Alert. No acute distress. She is overweight Eye: No xanthelasma. HENT: Normocephalic. Neck: Jugular venous pressure does not appear elevated. Respiratory: Lungs are clear to auscultation. Respirations are non-labored. Breath sounds are equal. Symmetrical chest wall expansion. Cardiovascular: Normal rate. Irregular rhythm. No murmur. No gallop. Trace bilateral pretibial edema. Gastrointestinal: Soft. Normal bowel sounds. Skin: Warm. Dry. Neurologic: Alert and oriented to person, place, time. Cranial nerves 3-11 grossly intact. Psychiatric: Cooperative. Appropriate mood & affect. Labs Laboratory Tests Test 03/27/21 05:25 Range/Units White Blood Count 12.0 H 4.3-11.0 10^3/uL Red Blood Count 4.01 3.80-5.11 10^6/uL Hemoglobin 8.2 L 11.5-16.0 g/dL Hematocrit 30 L 35-52 % Mean Corpuscular Volume 75 L 80-99 fL Mean Corpuscular Hemoglobin 20 L 25-34 pg Mean Corpuscular Hemoglobin Concent 27 L 32-36 g/dL Red Cell Distribution Width 21.6 H 10.0-14.5 % Platelet Count 375 130-400 10^3/uL Mean Platelet Volume 10.3 9.0-12.2 fL Immature Granulocyte % (Auto) 1 % Neutrophils (%) (Auto) 76 H 42-75 % Lymphocytes (%) (Auto) 13 12-44 % Monocytes (%) (Auto) 7 0-12 % Eosinophils (%) (Auto) 3 0-10 % Basophils (%) (Auto) 1 0-10 % Neutrophils # (Auto) 9.1 H 1.8-7.8 10^3/uL Lymphocytes # (Auto) 1.5 1.0-4.0 10^3/uL Monocytes # (Auto) 0.9 0.0-1.0 10^3/uL Eosinophils # (Auto) 0.3 0.0-0.3 10^3/uL Basophils # (Auto) 0.1 0.0-0.1 10^3/uL Immature Granulocyte # (Auto) 0.1 0.0-0.1 10^3/uL Sodium Level 140 135-145 MMOL/L Potassium Level 3.8 3.6-5.0 MMOL/L Chloride Level 105 98-107 MMOL/L Carbon Dioxide Level 25 21-32 MMOL/L Anion Gap 10 5-14 MMOL/L Blood Urea Nitrogen 11 7-18 MG/DL Creatinine 0.82 0.60-1.30 MG/DL Estimat Glomerular Filtration Rate 67 BUN/Creatinine Ratio 13 Glucose Level 82 70-105 MG/DL Calcium Level 9.3 8.5-10.1 MG/DL Corrected Calcium 9.9 8.5-10.1 MG/DL Total Bilirubin 0.5 0.1-1.0 MG/DL Aspartate Amino Transf (AST/SGOT) 15 5-34 U/L Alanine Aminotransferase (ALT/SGPT) 11 0-55 U/L Alkaline Phosphatase 53 40-136 U/L Total Protein 5.6 L 6.4-8.2 GM/DL Albumin 3.3 3.2-4.5 GM/DL Diagnosis/Problems Diagnosis/Problems (1) Persistent atrial fibrillation Assessment & Plan: She has atrial fibrillation of unknown duration. At this point, this is essentially persistent atrial fibrillation since this is gone on now for several days. She seems to be asymptomatic with this. Her left atrium is only mildly dilated by echocardiogram which suggests that the atrial fibrillation may be something recent. Unclear whether or not this may have been brought on by the severe anemia or this just happens to be a coincidence. I have started her on oral beta-rupal and increased the dose on 03/25. She still has a tendency to run heart rates in the high 90s. I changed the metoprolol succinate to 50 mg twice daily on 03/25. I did this to help avoid iatrogenic hypotension by giving her 100 mg all at once in the morning. She started rivaroxaban on 03/25. I prefer rivaroxaban over apixaban or other agents since she can get the rivaroxaban at a markedly reduced cost through a special hospital program. I would recommend a minimum of 30 days of oral anticoagulation followed by cardioversion. Since her heart rate is reasonably well controlled and she is asymptomatic, there is no urgent need to perform transesophageal echocardiogram and cardioversion during this admission. She will need to arrange the cardioversion through her regular mold closer helper in [place]. If she would prefer to follow with me, I could also arrange for cardioversion here in about 30 days. At this time, there do not appear to be any acute, active cardiac issues. As such, cardiology will sign off. If she remains in the hospital and there are any additional questions or concerns, please feel free to call. (2) Primary hypertension Assessment & Plan: Her blood pressures are controlled with metoprolol. I did not resume her home dose of amlodipine so that we can use higher doses of metoprolol if needed for rate control for the atrial fibrillation. As above, I increased the dose of metoprolol on 03/25 by making this twice daily. (3) Pulmonary hypertension Assessment & Plan: By her report, she has pulmonary hypertension. She follows with a mold closer helper at [facility] in [place], [place] for management of this condition. The echocardiogram from the outside hospital prior to admission here only shows mild pulmonary hypertension. This can be followed by her regular mold closer helper at the outside facility after discharge. (4) Aortic regurgitation Assessment & Plan: Her echocardiogram from [facility] just prior to her being transferred here showed mild aortic regurgitation. This should not be contributing to the current situation but will need to be followed longitudinally after discharge. (5) Anemia Assessment & Plan: Etiology unclear but possibly related to the ulcer at the GE junction although this was not bleeding at the time of the upper endoscopy. As above, she has tolerated rivaroxaban so far without signs of recurrent hemorrhaging. (6) Obesity Assessment & Plan: She needs to work on weight loss. There is data that 20 pounds of weight loss will help reduce the risk of recurrent atrial fibri llation. PRAVEEN ALONZO JR, MD Mar 27, 2021 10:17
--- NOTE | 2021-03-27 10:20 | Progress Note ---
ROMMEL TORRES 03/27/21 1020: Progress Note On 03/22 a 80 yo F presents to the ICU from [place] via EMS due to asymptomatic Atrial Fibrillation with RVR and anemia. She has SOB on exertion and denies any symptoms related to her anemia or atrial fibrillation which includes no black or tarry stools, CP, or recent falls. Her hemoglobin on 03/22 is 6.9 and hematocrit of 27. She was transfused with two units of blood on that day and treated with rate control meds, anticoagulation medications were not started due to her anemia. Over the next few days she continued to improve and her hemoglobin remained stable between 7 and 8. An endoscopy was performed which revealed an Reji ulcer that was not actively bleeding. Cardiology approved her to be started on anticoagulation after her endoscopy and she will be seen in [place] for her Afib for possible cardioversion within the next 30 days. She was discharged on 03/27 with home health and she will be staying with her son. IVY GARCIA DO 03/28/21 0454: Supervisory-Addendum Brief Verification & Attestation Participated in pt care: history, MDM, physical Personally performed: exam, history, MDM, supervision of care Care discussed with: Medical Student Procedures: n/a Results interpretation: Verified all documentation Verification and Attestation of Medical Student E/M Service A medical student performed and documented this service in my presence. I reviewed and verified all information documented by the medical student and made modifications to such information, when appropriate. I personally performed the physical exam and medical decision making. Ivy Garcia Mar 28, 2021,04:54 ROMMEL TORRES Mar 27, 2021 10:20 IVY GARCIA DO Mar 28, 2021 04:54
[2021-03-27] MEDS ORDERED: NS IV 500 ML 500 ML IV SCH (10:45)
--- NOTE | 2021-03-27 11:14 | Occupational Ther Daily Note ---
OT Current Status-Daily Note Subjective Pt alert, lying in bed, Pt agrees to therapy. No c/o pain. Mental Status/Objective Patient Orientation: Person, Place, Time, Situation ADL-Treatment Pt agrees to using toilet. Furniture surfing from bed to toilet, no AD, pt able to complete with SBA for safety. No LOB noted. Pt then was able to complete toilet transfer and toileting independently. Pt moved to sink to wash hands standing at sink, independently. Pt declines oral care. After therapy, pt lying in bed with call light/phone in reach. All needs met in room. Therapy Code Descriptions/Definitions Functional Waldo Measure: 0=Not Assessed/NA 4=Minimal Assistance 1=Total Assistance 5=Supervision or Setup 2=Maximal Assistance 6=Modified Waldo 3=Moderate Assistance 7=Complete IndependenceSCALE: Activities may be completed with or without assistive devices. 6-Xflztakbsp-kxyvfbj completes the activity by him/herself with no assistance f rom a helper. 5-Set-up or Clean-up Assistance-helper sets up or cleans up; patient completes activity. Hayes assists only prior to or following the activity. 4-Supervision or Touching Assistance-helper provides verbal cues and/or touching/steadying and/or contact guard assistance as patient completes activity. Assistance may be provided throughout the activity or intermittently. 3-Partial/Moderate Assistance-helper does LESS THAN HALF the effort. Hayes lifts, holds or supports trunk or limbs, but provides less than half the effort. 2-Substantial/Maximal Assistance-helper does MORE THAN HALF the effort. Hayes lifts or holds trunk or limbs and provides more than half the effort. 8-Tdtuvzgqo-goqhca does ALL the effort. Patient does none of the effort to complete the activity. Or, the assistance of 2 or more helpers is required for the patient to complete the activity. If activity was not attempted, code reason: 7-Patient Refused. 9-Not Applicable-not attempted and the patient did not perform the activity before the current illness, exacerbation or injury. 10-Not Attempted due to Environmental Limitations-(lack of equipment, weather restraints, etc.). 88-Not Attempted due to Medical Conditions or Safety Concerns. Toileting Hygiene (QC): 6 Toilet Transfer (QC): 6 OT Machine Or Machinery Mechanic Goals Chcf Goals Time Frame: Mar 31, 2021 Oral Hygiene (QC): 6 Toileting Hygiene (QC): 4 Lower Body Dressing (QC): 4 On/Off Footwear (QC): 4 1=Demonstrate adherence to instructed precautions during ADL tasks. 2=Patient will verbalize/demonstrate understanding of assistive devices/modifications for ADL. 3=Patient will improve strength/tolerance for activity to enable patient to perform ADL's. OT Education/Plan Problem List/Assessment Assessment: Decreased Activ Tolerance Discharge Recommendations Plan/Recommendations: Continue POC Treatment Plan/Plan of Care Patient would benefit from OT for education, treatment and training to promote independence in ADL's, mobility, safety and/or upper extremity function for ADL's. Plan of Care: ADL Retraining, Functional Mobility, Group Exercise/Act as Ind, UE Funct Exercise/Act Treatment Duration: Mar 31, 2021 Frequency: 5 times per week Estimated Hrs Per Day: .25 hour per day Agreement: Yes Rehab Potential: Fair Time/GCodes Start Time: 10:14 Stop Time: 10:30 Total Time Billed (hr/min): 16 Billed Treatment Time 1 visit-ADL 1 (16 min) MARTA VILLATORO Mar 27, 2021 11:14
[2021-03-27] MEDS ORDERED: IRON DEXTRAN INJECTION 25 MG in NS (IVPB) 5.75 ML IV NR (11:20)
[2021-03-27] MEDS ORDERED: IRON DEXTRAN IV NR (11:30)
[2021-03-27] MEDS ORDERED: NS IV NR (11:30)
--- NOTE | 2021-03-27 14:11 | Physical Therapy Daily Note ---
PT Daily Note-Current Subjective Patient in bed pre tx, agrees to PT, has no complaints of pain. Appearance Patient in bed post tx with nurse call, phone, tray, all needs met. Mental Status Patient Orientation: Person, Place, Situation Attachments: Oxygen, IV Transfers SCALE: Activities may be completed with or without assistive devices. 3-Srtowcwtfq-mbzeaqx completes the activity by him/herself with no assistance from a helper. 5-Set-up or Clean-up Assistance-helper sets up or cleans up; patient completes activity. Ronks assists only prior to or following the activity. 4-Supervision or Touching Assistance-helper provides verbal cues and/or touching/steadying and/or contact guard assistance as patient completes activity. Assistance may be provided throughout the activity or intermittently. 3-Partial/Moderate Assistance-helper does LESS THAN HALF the effort. Ronks lifts, holds or supports trunk or limbs, but provides less than half the effort. 2-Substantial/Maximal Assistance-helper does MORE THAN HALF the effort. Ronks lifts or holds trunk or limbs and provides more than half the effort. 7-Qyzmvitkh-julyxi does ALL the effort. Patient does none of the effort to complete the activity. Or, the assistance of 2 or more helpers is required for the patient to complete the activity. If activity was not attempted, code reason: 7-Patient Refused. 9-Not Applicable-not attempted and the patient did not perform the activity before the current illness, exacerbation or injury. 10-Not Attempted due to Environmental Limitations-(lack of equipment, weather restraints, etc.). 88-Not Attempted due to Medical Conditions or Safety Concerns. Roll Left & Right (QC): 6 Sit to Lying (QC): 6 Lying to Sitting/Side of Bed(Q: 6 Sit to Stand (QC): 5 Chair/Gzp-ph-Mzmjn Xfer(QC): 5 Weight Bearing Right Lower Extremity: Right Full Weight Bearing Left Lower Extremity: Left Full Weight Bearing Gait Training Distance: 30' Walk 10 feet (QC): 5 Gait Assistive Device: FWW slow but steady ambulation using a rolling walker Exercises Seated Therapy Exercises: Ankle pumps, Long arc quads Seated Reps: 20 Treatments bed mobility and transfers, ambulation, LE strengthening Assessment Current Status: Fair Progress improving endurance PT Penitentiary Goals Penitentiary Goals PT Penitentiary Goals Time Frame: Mar 31, 2021 Roll Left & Right (QC): 6 Sit to Lying (QC): 6 Lying-Sitting on Side/Bed(QC): 6 Sit to Stand (QC): 6 Chair/Twb-gl-Sjwug Xfer(QC): 6 Walk 10 feet (QC): 6 Walk 50ft with 2 Turns (QC): 6 PT Plan Problem List Problem List: Activity Tolerance, Functional Strength, Safety, Balance, Gait, Transfer, ROM Treatment/Plan Treatment Plan: Continue Plan of Care Treatment Plan: Bed Mobility, Education, Functional Activity Janeen, Functional Strength, Gait, Safety, Therapeutic Exercise, Transfers Treatment Duration: Mar 31, 2021 Frequency: 6 times per week Estimated Hrs Per Day: .25 hour per day Patient and/or Family Agrees t: Yes Safety Risks/Education Patient Education: Gait Training, Transfer Techniques, Correct Positioning, Safety Issues Teaching Recipient: Patient Teaching Methods: Demonstration, Discussion Response to Teaching: Reinforcement Needed Time/GCodes Time In: 1357 Time Out: 1407 Total Billed Treatment Time: 10 Total Billed Treatment 1 visit GT 10' DESTINEE HANKINS PT Mar 27, 2021 14:11
[2021-03-27] MEDS: RIVAROXABAN 20 MG TABLET (XARELTO) PO SCH (17:06)
[2021-03-27 18:15] VITALS: BP 116/76
--- NOTE | 2021-03-29 12:46 | Physician Query Clarification ---
NADINE BRIDGES 03/29/21 1246: [id number] Proc Desc BodyOP Admission Canned Text Admission Date: Mar 22, 2021 at 14:57 Discharge Date: Mar 27, 2021 at 18:18 Dr. Cardenas, Procedures Procedures Performed EGD and polypectomy rectum Body of the Operative/Procedure Report: There is no detailed documentation specifying a EGD or rectal polypectomy was done in the body of the op rpt. Rail Tractor Operator Note Note From Rail Tractor Operator Please remember a lack of response to the above will prompt a phone page by CDI/Coding staff. In responding to this query, please exercise your independent professional judgment. The purpose of this communication is to more accurately reflect the complexity of your patients condition. The fact that a question is asked does not imply that any particular answer is desired or expected. Thank you for your timely response to this clarification. Requestors name: Nadine THIS PHYSICIAN QUERY FORM IS A PERMANENT PART OF THE MEDICAL RECORD JOSH CARDENAS DO 03/30/21 1238: [id number] Proc Desc BodyOP Physician Response Details: Addendum to the OP report (confirmation # [id number]) NADINE BRIDGES Mar 29, 2021 12:46 JOSH CARDENAS DO Mar 30, 2021 12:38
--- NOTE | 2021-03-30 15:41 | OPERATIVE REPORT ---
DATE OF SERVICE: 03/24/2021 ADDENDUM: The EGD was then performed. The scope was inserted in the mouth, down the esophagus, stomach and into the duodenum without difficulty. There were no polyps, masses or ulcerations within the duodenum. Scope was slowly retracted back into the stomach, which had no polyps, masses or ulcerations. Scope was retroflexed noting a hiatal hernia. Slight bleeding around the GE junction. The scope was returned to its normal position, slowly withdrawn to distal esophagus. At the GE junction was small ulceration with some small bleeding, likely from the scope. It was minimal. Scope was then slowly retracted back until completely removed. The patient tolerated the procedure well without any complications. Job ID: [id number] DocumentID: [id number] Dictated Date: 03/30/2021 12:37:31 Monumental Stonemason Date: 03/30/2021 15:40:56 Dictated By: JOSH LORD DO
== END 2021-03-27 18:18 | disposition home health service (06) | DRG 308 ==
LOC: ICU 14:57 → 4TH 03-26 12:45
PROVIDERS: ADMIT Internal Medicine; ATTEND Internal Medicine
PROC: 0DBP8ZX Excision of Rectum, Via Natural or Artificial Opening Endoscopic, Diagnostic (ICD-10-PCS; 2021-03-24)
PROC: 0DJ08ZZ Inspection of Upper Intestinal Tract, Via Natural or Artificial Opening Endoscopic (ICD-10-PCS; 2021-03-24)
PROC: 0DBK8ZX Excision of Ascending Colon, Via Natural or Artificial Opening Endoscopic, Diagnostic (ICD-10-PCS; principal; 2021-03-24 10:10)
PROC: 0DBN8ZX Excision of Sigmoid Colon, Via Natural or Artificial Opening Endoscopic, Diagnostic (ICD-10-PCS; 2021-03-24 10:10)
DX: I48.19 Other persistent atrial fibrillation (principal); K25.4 Chronic or unspecified gastric ulcer with hemorrhage; D50.0 Iron deficiency anemia secondary to blood loss (chronic); I48.91 Unspecified atrial fibrillation; I27.20 Pulmonary hypertension, unspecified; I10 Essential (primary) hypertension; K63.5 Polyp of colon; K62.1 Rectal polyp; Z66 Do not resuscitate; I35.1 Nonrheumatic aortic (valve) insufficiency; Z99.81 Dependence on supplemental oxygen; Z20.822 Contact with and (suspected) exposure to COVID-19; K57.30 Diverticulosis of large intestine without perforation or abscess without bleeding; R35.0 Frequency of micturition; E03.9 Hypothyroidism, unspecified; E66.9 Obesity, unspecified; Z68.32 Body mass index [BMI] 32.0-32.9, adult; I95.9 Hypotension, unspecified
CPT/HCPCS: 36415; 71045; 80048; 80053; 81000; 83540; 83735; 83880; 84100; 84145; 85007; 85025; 85027; 85045; 85055; 86850; 86900; 86901; 87081; 87636; 88305; 93005; 94761

== ENCOUNTER → 2021-03-22 | Outpatient (CLI) | payer MEDICARE ==
[~2021-03-22] MED LIST: ALEN70TA80 PO; AMLO-250 PO; IRON100V2 IV; LEVO100T7 PO; METO50TA7 PO; PANT40TA52 PO; RIVA20TA2 PO; SUCR1TAB PO
== END ==
LOC: LABNPT 08:00
PROVIDERS: ATTEND Nurse Practitioner Family
DX: Z20.822 Contact with and (suspected) exposure to COVID-19 (principal)

== ENCOUNTER 2021-09-18 05:54 | Outpatient (CLI) | payer MEDICARE ==
[~2021-09-18] VITALS: Ht 165.1 cm; Wt 80.5 kg
[2021-09-18] MEDS ORDERED: FURO20TA4 PO (11:54)
[2021-09-18] MEDS ORDERED: CLOP75TA28 PO (11:54)
[2021-09-18] MEDS ORDERED: PANT40TA52 PO (11:54)
[2021-09-18] MEDS ORDERED: METO50TA7 PO (11:54)
[2021-09-18] MEDS ORDERED: POTA-51 PO (11:54)
[2021-09-18] MEDS ORDERED: SUCR1TAB PO (11:54)
== END 2021-09-18 11:56 | disposition home or self-care (01) ==
LOC: PREOP 05:54 → EDSTATUS 14:15
PROVIDERS: ATTEND Surgery
DX: Z01.818 Encounter for other preprocedural examination (principal)

== ENCOUNTER 2021-09-26 10:27 | Day surgery (SDC) | payer MEDICARE ==
[~2021-09-26] VITALS: Ht 165 cm; Wt 80.5 kg
[~2021-09-26 10:27] MED LIST changes: +CLOP75TA28 PO; +FURO20TA4 PO; +POTA-51 PO
[2021-09-26] MEDS ORDERED: LACTATED RINGERS 1,000 ML IV STA (10:30)
[2021-09-26] MEDS ORDERED: HURRICAINE EXT TUBE (BENZOCAINE) XX PRN (10:30)
[2021-09-26] MEDS ORDERED: LACTATED RINGERS 1,000 ML IV ONE (10:32)
[2021-09-26 10:40] VITALS: BP 131/92
--- NOTE | 2021-09-26 10:55 | Progress Note-Pre Operative ---
Pre-Operative Progress Note H&P Reviewed The H&P was reviewed, patient examined and no changes noted. Date Seen by Provider: Sep 26, 2021 Time Seen by Provider: 10:55 Date H&P Reviewed: Sep 26, 2021 Time H&P Reviewed: 10:55 Pre-Operative Diagnosis: esophageal ulcer JOSH LORD DO Sep 26, 2021 10:55
[2021-09-26] MEDS ORDERED: proPOfol 200 MG/20 ML (DIPRIVAN) VIAL IV ONE (11:01)
--- NOTE | 2021-09-26 11:12 | Progress Note-Post Operative ---
Post-Operative Progess Note Surgeon (s)/Canoe Inspector Final (s) Surgeon JOSH LORD DO Canoe Inspector Final: na Pre-Operative Diagnosis esophageal ulcer Post-Operative Diagnosis minimal gastritis, small antral ulcers Procedure & Operative Findings Date of Procedure 09/26/21 Procedure Performed/Findings egd Anesthesia Type per new accounts banking representative Estimated Blood Loss Estimated blood loss (mL): none Specimens/Packing Specimens Removed antral biopsy JOSH LORD DO Sep 26, 2021 11:12
--- NOTE | 2021-09-26 11:13 | Discharge Inst-Simple/Standard ---
Discharge Inst-Standard Patient Instructions/Follow Up Plan of Care/Instructions/FU: 2 weeks marbin Activity as Tolerated: Yes Discharge Diet: Regular Diet JOSH LORD DO Sep 26, 2021 11:13
[2021-09-26 11:15] VITALS: BP 120/61
[2021-09-26 11:20] VITALS: BP 109/74
[2021-09-26 11:40] VITALS: BP 110/75
[2021-09-26 11:53] VITALS: BP 110/75
--- NOTE | 2021-09-26 13:25 | Anesthesia-General Post-Op ---
MAC Patient Condition Mental Status/LOC: Same as Preop Cardiovascular: Satisfactory Nausea/Vomiting: Absent Respiratory: Satisfactory Pain: Controlled Complications: Absent Post Op Complications Complications None Follow Up Care/Instructions Patient Instructions None needed. Anesthesiology Discharge Order Discharge Order Patient is doing well, no complaints, stable vital signs, no apparent adverse anesthesia problems. No complications reported per nursing. BLAINE LOPEZ CRNA Sep 26, 2021 13:25
--- NOTE | 2021-09-26 15:09 | OPERATIVE REPORT ---
DATE OF SERVICE: 09/26/2021 PREOPERATIVE DIAGNOSIS: Esophageal ulcer. POSTOPERATIVE DIAGNOSES: Minimal gastritis and small antral ulcers. PROCEDURES PERFORMED: EGD with biopsy. SURGEON: Josh Cardenas DO. ANESTHESIA: Per VP EMERGING MEDIA. ESTIMATED BLOOD LOSS: None. COMPLICATIONS: None. SPECIMENS: Antral biopsy. INDICATIONS FOR PROCEDURE: The patient is a 81-year-old female with history of upper GI bleed with esophageal ulcer. She understands the risks and benefits of the procedure and wishes to proceed. Consent was signed in the chart. DESCRIPTION OF PROCEDURE: The patient was taken to the endoscopy suite and placed in the left lateral recumbent position. A timeout was performed. Scope was inserted in the mouth, down the esophagus, stomach and into the duodenum without difficulty. No polyps, masses or ulcerations within the duodenum. Scope was slowly retracted back into the stomach, where it was further insufflated. Antral erosion/ulcer very small were present. Biopsy was obtained. Scope was retroflexed noting no other pathology. Scope was returned to its normal position, slowly withdrawn. The distal esophagus had normal appearance. No polyps, masses or ulcerations. Scope was slowly retracted back until completely removed. The patient tolerated the procedure well without any complications. She was taken to the recovery room in stable condition. RECOMMENDATIONS: The patient will need a followup in the office in two weeks to go over pathology. We will continue on current medications. Await biopsy results for further recommendations. Job ID: [id number] DocumentID: [id number] Dictated Date: 09/26/2021 11:16:23 City Council Member Date: 09/26/2021 15:08:18 Dictated By: JOSH CARDENAS DO
== END 2021-09-26 11:53 | disposition home or self-care (01) ==
LOC: ENDO 10:27
PROVIDERS: ATTEND Surgery
DX: K25.9 Gastric ulcer, unspecified as acute or chronic, without hemorrhage or perforation (principal); K29.70 Gastritis, unspecified, without bleeding; D64.9 Anemia, unspecified; Z79.02 Long term (current) use of antithrombotics/antiplatelets